=== PATIENT | female | born 1930 | race Caucasian/White ===

== ENCOUNTER 2017-06-09 16:55 | Inpatient (IN) | payer OTHER ==
[2017-06-09 17:26] VITALS: BMI 33.3
[2017-06-09 18:10] LABS: BASOPHIL 0.2 % (0-2.0); EOSINOPHIL 0.8 % (0-4.5); MCH 34.1 pg (25.7-33.7); MCHC 33.8 g/dl (32.0-36.0); MEAN CELL VOLUME 100.7 fl (80-96); MEAN PLT VOLUME 9.4 fl (7.5-11.1); NEUTROPHILS 80.4 % (42.8-82.8); PLATELET COUNT 213 K/MM3 (134-434); RDW 13.5 % (11.6-15.6); WHITE BLOOD COUNT 9.7 K/mm3 (4.0-10.0)
[2017-06-09 18:11] LABS: URINE APPEARANCE SLCLOUDY; URINE BILIRUBIN NEGATIVE (NEGATIVE); URINE BLOOD 2+ (NEGATIVE); URINE COLOR AMBER; URINE GLUCOSE (UA) NEGATIVE (NEGATIVE); URINE KETONE TRACE (NEGATIVE); URINE LEUK ESTERASE NEGATIVE (NEGATIVE); URINE NITRITE NEGATIVE (NEGATIVE); URINE PROTEIN NEGATIVE (NEGATIVE); URINE UROBILINOGEN 4.0 E.U/dl mg/dL (0.2-1.0)
[2017-06-09 18:22] LABS: INR 0.96 (0.82-1.09); PROTHROMBIN TIME (PATIENT) 10.6 SEC (9.98-11.88)
[2017-06-09 18:33] LABS: ALBUMIN 3.8 g/dl (3.4-5.0); ANION GAP 6 (8-16); CALCIUM 9.2 mg/dL (8.5-10.1); CO2 24 mmol/L (21-32); CREATININE 1.6 mg/dL (0.55-1.02); GLUCOSE,RANDOM 146 mg/dL (74-106); SGOT/AST 14 U/L (15-37); SGPT/ALT 24 U/L (12-78)
[2017-06-09 18:37] LABS: ALK PHOS 92 U/L (45-117); BILIRUBIN,TOTAL 0.4 mg/dL (0.2-1.0); CPK 47 IU/L (26-192); TOT PROT 7.2 g/dl (6.4-8.2); TROPONIN I < 0.02 ng/ml (0.00-0.05)
--- NOTE | 2017-06-09 18:47 | PDOC ---
History of Present Illness - General History Source: Patient, EMS, Intermediate Records, Old Records Exam Limitations: Dementia - History of Present Illness Initial Comments: 06/09/17 18:49 The patient is an 87 year old female with past medical history of hypertension, CHF, vertigo and dementia who arrives via EMS from [facility] living where she was found to be hypotensive and diaphoretic. She complained about a headache, 10/10 in severity, dizziness as well as intense suprapubic pain. The patient is a poor historian due to her dementia and no further history can be provided. Allergies: N/A PCP: Claudette Franco <Nola Ziegler - Last Filed: 06/09/17 21:26> <Meli Kim - Last Filed: 06/09/17 22:00> - General Chief Complaint: Syncope/Near Syncope Stated Complaint: Altered Mental Status Time Seen by Provider: 06/09/17 17:21 Past History <Nola Ziegler - Last Filed: 06/09/17 21:26> - Past Medical History Anemia: Yes (B12) Dementia: Yes HTN: Yes Psychiatric Problems: Yes (depressive disorder) Other medical history: vertigo - Immunization History Immunization Up to Date: Yes - Psycho/Social/Smoking Cessation Hx Anxiety: No Suicidal Ideation: No Smoking History: Unknown if ever smoked Have you smoked in the past 12 months: No Number of Cigarettes Smoked Daily: 6 Information on smoking cessation initiated: No Hx Alcohol Use: No Drug/Substance Use Hx: No Substance Use Type: None <Meli Kim - Last Filed: 06/09/17 22:00> - Past Medical History Allergies/Adverse Reactions: Allergies Allergy/AdvReac Type Severity Reaction Status Date / Time No Known Allergies Allergy Verified 06/09/17 17:26 Home Medications: Ambulatory Orders Acetaminophen [Pain Reliever] 500 mg PO TID PRN 05/18/16 Cyanocobalamin [Vitamin B12 -] 1,000 mcg PO DAILY 05/18/16 Mirabegron [Myrbetriq] 50 mg PO DAILY 05/18/16 Oxybutynin Chloride [Oxybutynin Chloride ER] 10 mg PO DAILY 05/18/16 Aspirin [ASA -] 81 mg PO DAILY tab.chew 05/23/16 Losartan Potassium [Cozaar -] 100 mg PO DAILY tablet 05/23/16 Spironolactone [Aldactone -] 25 mg PO DAILY tablet 05/23/16 Ergocalciferol [Drisdol -] 50,000 unit PO Q7D@1000 06/09/17 Furosemide [Lasix -] 40 mg PO DAILY 06/09/17 Meloxicam 7.5 mg PO ASDIR 06/09/17 Sennosides [Senna] 2 tab PO DAILY 06/09/17 Review of Systems - Review of Systems Able to Perform ROS?: Yes Comments:: 06/09/17 18:50 CONSTITUTIONAL: Present: diaphoretic Absent: fever, chills HEENT: Absent: rhinorrhea, nasal congestion, throat pain, throat swelling, difficulty swallowing, mouth swelling, ear pain, eye pain, visual Changes CARDIOVASCULAR: Absent: chest pain, syncope, palpitations, irregular heart rate, lightheadedness , peripheral edema RESPIRATORY: Absent: cough, shortness of breath, dyspnea with exertion, orthopnea, wheezing, stridor, hemoptysis GASTROINTESTINAL: Present: suprapubic pain Absent: abdominal distension, nausea, vomiting, diarrhea, constipation, melena, hematochezia GENITOURINARY: Absent: dysuria, frequency, urgency, hesitancy, hematuria, flank pain, genital pain MUSCULOSKELETAL: Absent: myalgia, arthralgia, joint swelling SKIN: Absent: rash, itching, pallor HEMATOLOGIC/IMMUNOLOGIC: Absent: easy bleeding, easy bruising, lymphadenopathy, frequent infections ENDOCRINE: Absent: unexplained weight gain, unexplained weight loss, heat intolerance, cold intolerance NEUROLOGIC: Present: dizziness, headache Absent: focal weakness or paresthesias, unsteady gait, seizure, mental status changes, bladder or bowel incontinence PSYCHIATRIC: Absent: anxiety, depression, suicidal or homicidal ideation, hallucinations. All Other Systems: Reviewed and Negative <Nola Ziegler - Last Filed: 06/09/17 21:26> *Physical Exam - Vital Signs Last Vital Signs Temp Pulse Resp BP Pulse Ox 97.2 F L 58 L 13 138/71 95 06/09/17 17:45 06/09/17 18:00 06/09/17 18:00 06/09/17 18:00 06/09/17 18:00 - Physical Exam Comments: 06/09/17 19:08 GENERAL: Well developed, well nourished. Awake and alert. No acute distress. HEENT: Normocephalic, atraumatic. PERRLA, EOMI. No conjunctival pallor. Sclera are non- icteric. Moist mucous membranes. Oropharynx is clear. NECK: Supple. Full ROM. No JVD. Carotid pulses 2+ and symmetric, without bruits. No thyromegaly. No lymphadenopathy. CARDIOVASCULAR: Bradycardic, No murmurs, rubs, or gallops. Distal pulses are 2+ and symmetric. PULMONARY: No evidence of respiratory distress. Lungs clear to auscultation bilaterally. No wheezing, rales or rhonchi. ABDOMINAL: Protuberant belly, pain on palpation to suprapubic region. No rebound or guarding. No organomegaly. Normoactive bowel sounds. MUSCULOSKELETAL Normal range of motion at all joints. No bony deformities or tenderness. No CVA tenderness. EXTREMITIES: No cyanosis. No clubbing. No edema. No calf tenderness. SKIN: Warm and dry. Normal capillary refill. No rashes. No jaundice. NEUROLOGICAL: Alert, awake, appropriate. Cranial nerves 2-12 intact. No deficits to light touch and temperature in face, upper extremities and lower extremities. No motor deficits in the in face, upper extremities and lower extremities. Normoreflexic in the upper and lower extremities. Normal speech. Toes are down-going bilaterally. Gait is normal without ataxia. PSYCHIATRIC: Cooperative. Good eye contact. Appropriate mood and affect. <KarlieNola - Last Filed: 06/09/17 21:26> - Vital Signs Last Vital Signs Temp Pulse Resp BP Pulse Ox 97.2 F L 58 L 13 138/71 95 06/09/17 17:45 06/09/17 18:00 06/09/17 18:00 06/09/17 18:00 06/09/17 18:00 <Meli Kim - Last Filed: 06/09/17 22:00> ED Treatment Course - LABORATORY CBC & Chemistry Diagram: 06/09/17 17:25 06/09/17 17:25 - ADDITIONAL ORDERS Additional order review: Laboratory Results 06/09/17 06/09/17 17:25 17:25 INR 0.96 Urine Color Mary Kay Urine Appearance Slcloudy Urine pH 5.0 Urine Protein Negative Urine Glucose (UA) Negative Urine Ketones Trace H Urine Blood 2+ H Urine Nitrite Negative Urine Bilirubin Negative Urine Urobilinogen 4.0 e.u/dl H Ur Leukocyte Esterase Negative - RADIOLOGY Radiograph Interpretation: 06/09/17 20:02 Chest x-ray as reviewed by Dr. Garcia reports cardiomegaly and mild congestion Head Ct as reviewed by Dr. Garcia reports no acute intracranial pathology. <Nola Ziegler - Last Filed: 06/09/17 21:26> - LABORATORY CBC & Chemistry Diagram: 06/09/17 17:25 06/09/17 17:25 - ADDITIONAL ORDERS Additional order review: Laboratory Results 06/09/17 06/09/17 17:25 17:25 INR 0.96 Urine Color Mary Kay Urine Appearance Slcloudy Urine pH 5.0 Urine Protein Negative Urine Glucose (UA) Negative Urine Ketones Trace H Urine Blood 2+ H Urine Nitrite Negative Urine Bilirubin Negative Urine Urobilinogen 4.0 e.u/dl H Ur Leukocyte Esterase Negative - RADIOLOGY Radiology Studies Ordered: Category Date Time Status HEAD CT WITHOUT CONTRAST [CT] Stat CT Scan 06/09/17 17:47 Ordered CHEST X-RAY PORTABLE* [RAD] Stat Radiology 06/09/17 17:46 Completed <Meli Kim - Last Filed: 06/09/17 22:00> Medical Decision Making - Medical Decision Making 06/09/17 21:26 Microblog sent to [facility]. Awaiting call back. <Nola Ziegler - Last Filed: 06/09/17 21:26> *DC/Admit/Observation/Transfer - Attestations Scribe Attestion: 06/09/17 19:11 Documentation prepared by Nola Ziegler, acting as medical office technician for Meli Kim MD. <KarlieNola - Last Filed: 06/09/17 21:26> - Discharge Dispostion Admit: Yes <Meli Kim - Last Filed: 06/09/17 22:00> Diagnosis at time of Disposition: Sinus bradycardia, Hyperkalemia, Renal insufficiency, Hyperglycemia, Vertigo, Acute electrocardiogram changes Headache Qualifiers: Headache type: unspecified Headache chronicity pattern: unspecified pattern Intractability: not intractable Qualified Code(s): R51 - Headache - Referrals Referrals: Claudette Franco MD [Primary Care Provider] -
[2017-06-09] MEDS ORDERED: INSULIN REGULAR HUMAN 100 UNITS/ML *VIAL IVPUSH ONE (18:59)
[2017-06-09] MEDS ORDERED: DEXTROSE 50%-WATER - 25 GM/50 ML VIAL IVPUSH ONE (19:01)
[2017-06-09] MEDS ORDERED: DEXTROSE 50%-WATER 50 ML DISP.SYRIN ONE (19:08)
[2017-06-09] MEDS ORDERED: INSULIN (NOVOLOG) ASPART 100 UNITS/ML 10ML VIAL ONE (19:09)
[2017-06-09 19:33] LABS: GRANULAR CASTS 2 /lpf; URINE MUCUS RARE; URINE RBC 7 /hpf (0-3); URINE WBC <1 /hpf (3-5)
[2017-06-09] MEDS ORDERED: ACETAMINOPHEN 325 MG TABLET (FP) PO ONE (21:25)
[2017-06-09] MEDS ORDERED: MECLIZINE HCL 25 MG TABLET (FP) PO ONE (21:25)
[2017-06-09] MEDS ORDERED: SODIUM POLYSTYRENE SULFONATE 15 GM/60 ML BOTTLE PO ONE (21:38)
--- NOTE | 2017-06-09 21:40 | PN ---
Teaching Attending Note Name of Resident: Tatyana Guido ATTENDING PHYSICIAN STATEMENT I saw and evaluated the patient. I reviewed the resident's note and discussed the case with the resident. I agree with the resident's findings and plan as documented. SUBJECTIVE: 87 yo F with pmhx of HTN, CHF, Vertigo, and dementia who was BIBA from [facility], where she was found to be diaphoretic with CRUZ 10/10 , also hypotensive (not recorded). At bedside pt. is alert and able to open her eyes and follow some commands, but did have mild lethargy. Denies any chest pain , pressure, fevers, chills or shortness of breath. OBJECTIVE: Physical: VS: Vital Signs Period Temp Pulse Resp BP Sys/Savage Pulse Ox Last 24 Hr 97.2 F 58-68 13-19 90-138/55-71 95-100 GEN: NAD, AA0 1-2, resting in bed HEENT: NCAT, PERRL CARD: RRR S1, S2 II/ Systolic Ejection murmer RESP: Crackles bases bilateral ABD: BS X4, NTD to palpation EXT: Trace pitting edema, bilateral and equal CBCD WBC 9.7 K/mm3 (4.0-10.0) D 06/09/17 17:25 RBC 3.62 M/mm3 (3.60-5.2) 06/09/17 17:25 Hgb 12.3 GM/dL (10.7-15.3) 06/09/17 17:25 Hct 36.4 % (32.4-45.2) 06/09/17 17:25 MCV 100.7 fl (80-96) H 06/09/17 17:25 MCHC 33.8 g/dl (32.0-36.0) 06/09/17 17:25 RDW 13.5 % (11.6-15.6) 06/09/17 17:25 Plt Count 213 K/MM3 (134-434) 06/09/17 17:25 MPV 9.4 fl (7.5-11.1) 06/09/17 17:25 CMP Sodium 137 mmol/L (136-145) 06/09/17 17:25 Potassium 6.2 mmol/L (3.5-5.1) H* D 06/09/17 17:25 Chloride 107 mmol/L (98-107) 06/09/17 17:25 Carbon Dioxide 24 mmol/L (21-32) D 06/09/17 17:25 Anion Gap 6 (8-16) L 06/09/17 17:25 BUN 33 mg/dL (7-18) H 06/09/17 17:25 Creatinine 1.6 mg/dL (0.55-1.02) H D 06/09/17 17:25 Creat Clearance w eGFR 30.63 (>60) 06/09/17 17:25 Random Glucose 146 mg/dL (74-106) H D 06/09/17 17:25 Calcium 9.2 mg/dL (8.5-10.1) 06/09/17 17:25 Total Bilirubin 0.4 mg/dL (0.2-1.0) 06/09/17 17:25 AST 14 U/L (15-37) L 06/09/17 17:25 ALT 24 U/L (12-78) D 06/09/17 17:25 Alkaline Phosphatase 92 U/L (45-117) 06/09/17 17:25 Total Protein 7.2 g/dl (6.4-8.2) 06/09/17 17:25 Albumin 3.8 g/dl (3.4-5.0) D 06/09/17 17:25 CARDIAC ENZYMES Creatine Kinase 47 IU/L (26-192) 06/09/17 17:25 Troponin I < 0.02 ng/ml (0.00-0.05) 06/09/17 17:25 EKG: S Get, no St-T changes CXR: Congestion bilateral, patchy Home Medications Medication Instructions Recorded Acetaminophen [Pain Reliever] 500 mg PO TID PRN 05/18/16 Cyanocobalamin [Vitamin B12 -] 1,000 mcg PO DAILY 05/18/16 Mirabegron [Myrbetriq] 50 mg PO DAILY 05/18/16 Oxybutynin Chloride [Oxybutynin 10 mg PO DAILY 05/18/16 Chloride ER] Aspirin [ASA -] 81 mg PO DAILY tab.chew 05/23/16 Losartan Potassium [Cozaar -] 100 mg PO DAILY tablet 05/23/16 Spironolactone [Aldactone -] 25 mg PO DAILY tablet 05/23/16 Ergocalciferol [Drisdol -] 50,000 unit PO Q7D@1000 06/09/17 Furosemide [Lasix -] 40 mg PO DAILY 06/09/17 Meloxicam 7.5 mg PO ASDIR 06/09/17 Sennosides [Senna] 2 tab PO DAILY 06/09/17 EHCO 05/17- Reduced EF 47% ASSESSMENT AND PLAN: 87 F with pmhx of HTN, CHF, Vertigo, and demenita who was BIBA for hypotension and diaphoresis, Found to have Acute Renal Failure and Hyperkalemia 1.) Acute Renal Failure - U lytes - Renal Us - Nephro Consult - Avoid Nephrotoxins - Hold Losartan/Aldactone - Decrease Mirabegron to 25mg q day, adjusted for clearance - ABG 2.) Hyperkalemia - Possibly medication induced - S/P Insulin/Dextrose/calscum and kayexlate/Alb neb - Repeat BMP - Cardiac Monitoring - Hold ARB 3.) Acute on Chronic Systolic Heart Failure - Lasic 40 IV X1 - Daily weights - NA/Fluid Restric - Strict I/O - Repeat Echo - Trend Troponins/Ekg 4.) Dvt Ppx - Heparin [address] in Med- Tele Rest as per resident note
[2017-06-09] MEDS ORDERED: CALCIUM GLUCONATE 10% - 1,000 MG/10 ML VIAL IVPB ONE (21:48)
[2017-06-09] MEDS ORDERED: PATIENT'S OWN MEDICATION (NON-FORMULARY) (Meloxicam [Meloxicam] 7.5 MG) PO SCH (22:15)
[2017-06-09] MEDS ORDERED: FUROSEMIDE 40 MG/4 ML INJECTABLE VIAL IVPUSH ONE (22:28)
--- NOTE | 2017-06-09 22:41 | HP ---
Admitting History and Physical - Primary Care Physician PCP: Danae Franco - Admission History of Present Illness: Pt is a 87 yo F arriving from [facility] with a history of dementia, CHF, diabetes, HTN, Hyperlipidemia who was seen in the ER for hyperkalemia of 6.3 and altered mental status. Pt is a poor historian and much information could not be attained from her. Per chart when pt was previously here May 2016 for PNA, mental baseline was alert and oriented x2 (not oriented to time). Currently pt reports being tired with b/l frontal headaches. She denies any chills, chest pain/discomfort, palpitations, abdominal pain. Pt was originally hypotensive in ER with a BP of 90/55, however responded with fluid resuscitation and has been stable at 138/71. ER Course notable for: 1) Head Ct - no acute intracranial pathology 2) CXR - Cardiomegaly with increased interstitial markings and opacities compared to previous; probable congestion per radiologist read 3) ECG - sinus bradycardia and from previous ECG change in T wave orientation in leads V1-V4 (now up-going) 4) 10 U insulin IVPush alongside D5 for potassium management PCP: Danae Franco History Source: Patient, Medical Record Limitations to Obtaining History: Dementia - Past Medical History NUTTER UP: Yes: Dementia - Smoking History Smoking history: Unknown if ever smoked Have you smoked in the past 12 months: No Aproximately how many cigarettes per day: 6 - Alcohol/Substance Use Hx Alcohol Use: No Home Medications - Allergies Allergies/Adverse Reactions: Allergies Allergy/AdvReac Type Severity Reaction Status Date / Time No Known Allergies Allergy Verified 06/09/17 17:26 - Home Medications Home Medications: Ambulatory Orders Acetaminophen [Pain Reliever] 500 mg PO TID PRN 05/18/16 Cyanocobalamin [Vitamin B12 -] 1,000 mcg PO DAILY 05/18/16 Mirabegron [Myrbetriq] 50 mg PO DAILY 05/18/16 Oxybutynin Chloride [Oxybutynin Chloride ER] 10 mg PO DAILY 05/18/16 Aspirin [ASA -] 81 mg PO DAILY tab.chew 05/23/16 Losartan Potassium [Cozaar -] 100 mg PO DAILY tablet 05/23/16 Spironolactone [Aldactone -] 25 mg PO DAILY tablet 05/23/16 Ergocalciferol [Drisdol -] 50,000 unit PO Q7D@1000 06/09/17 Furosemide [Lasix -] 40 mg PO DAILY 06/09/17 Meloxicam 7.5 mg PO ASDIR 06/09/17 Sennosides [Senna] 2 tab PO DAILY 06/09/17 Review of Systems Findings/Remarks: Same as HPI Physical Examination Vital Signs: Vital Signs Temperature 97.2 F L 06/09/17 17:45 Pulse Rate 68 06/09/17 19:27 Respiratory Rate 19 06/09/17 19:27 Blood Pressure 138/71 06/09/17 19:27 O2 Sat by Pulse Oximetry (%) 98 06/09/17 19:27 Constitutional: Yes: Other (Obese, Lethargic, but arousable to verbal stimulus) Eyes: Yes: Conjunctiva Clear, EOM Intact, PERRL HENT: Yes: Atraumatic, Normocephalic Neck: Yes: Supple, Trachea Midline Cardiovascular: Yes: Bradycardia, Murmur (Trace systolic ejection murmur), Other (Regular rhythm) Respiratory: Yes: Regular, Rales (Bibasilar rales noted.). No: Accessory Muscle Use Gastrointestinal: Yes: Normal Bowel Sounds, Soft, Abdomen, Obese. No: Tenderness Edema: No Peripheral Pulses WNL: Yes Neurological: Yes: Oriented (to name), Lethargy (had to arouse multiple times during examination; arousable to name and to tactile stimulation), Other (No focal deficits). No: Facial Droop Labs: CBC, BMP 06/09/17 17:25 06/09/17 17:25 Assessment/Plan 87yo Ugandan-speaking F from [facility] with h/o dementia, CHF , HTN, diabetes, vertigo admitted to [facility] inpatient for hyperkalemia with possible EKG changes and altered mentation with baseline unknown. Head CT neg for acute pathology; CXR moderate congestion; K 6.3 1) Hyperkalemia --EKG showed change in T wave orientation in V1-V4 leads from previous ECG done for PNA admission; unsure if T wave change from hyperkalemia this admission vs demand ischemia on previous admission. --Insulin 10 U with D5 given once in ED --Calcium gluconate IVPB will be given to pt in ED --Kayexalate given --Albuterol 0.083% neb QIDR ordered for hyperkalemia management --Propagator Laborer consulted --Aldactone and ARB HELD from home meds --Follow-up BMP 2) RAYO --Follow-up urine electrolytes --Stopped ARB and aldactone --Renally dosed Mirabegron down to 25mg --Renal US; f/u --Nephro consultation --Avoid nephrotoxins 3) Acute CHF exacerbation vs PNA --CXR in ER markedly worse when compared to previous XR on file --Most likely congestion: no leukocytosis, no fevers, no UTI present on UA --Lasix 40mg IVPush given --BNP ordered; slightly elevated at 554 --Follow-up CXR tomorrow morning --Echocardiogram ordered for tomorrow; will follow-up 3) Altered mental status --Pt's baseline per chart seems to be alert and orientedx2; however unknown if deterioration from possible dementia over past year --Head CT w/o contrast negative for acute pathology --Pt is currently lethargic, but arousable with unknown lung disease --ABG ordered; will follow-up with assisted living facility for baseline mental status FEN: Fluids: Fluid restriction currently Electrolytes: Hyperkalemia management as above Nutrition: NPO for now while lethargic and altered, but plan for diabetic diet later in hospital course PPX: DVT: Heparin 5000 SQ q8 GI: Not indicated at current time Dispo: Admit to tele inpatient Visit type - Emergency Visit Emergency Visit: Yes ED Registration Date: 06/09/17 Care time: The patient presented to the Emergency Department on the above date and was hospitalized for further evaluation of their emergent condition. - New Patient This patient is new to me today: Yes Date on this admission: 06/10/17 - Critical Care Critical Care patient: No
[2017-06-09] MEDS ORDERED: ACETAMINOPHEN 325 MG TABLET (FP) ONE (23:01)
[2017-06-09] MEDS ORDERED: SODIUM POLYSTYRENE SULFONATE 15 GM/60 ML BOTTLE ONE (23:02)
[2017-06-09] MEDS ORDERED: CALCIUM GLUCONATE 10% - 1,000 MG/10 ML VIAL ONE (23:02)
[2017-06-09] MEDS ORDERED: MECLIZINE HCL 25 MG TABLET (FP) ONE (23:02)
[2017-06-09] MEDS ORDERED: FUROSEMIDE 40 MG/4 ML INJECTABLE VIAL ONE (23:03)
[2017-06-09 23:38] LABS: ARTERIAL BLD GAS O2 SATURATION 97.3 % (90-98.9); ARTERIAL BLOOD GAS HCO3 20.6 meq/L (22-26); ARTERIAL BLOOD GAS PO2 85.3 mmHg (68-100)
[2017-06-09 23:39] LABS: ALLENS TEST POSITIVE; ART PUNCT SITE LEFT BRACHIAL; LPM/O2% ROOM AIR; METHEMOGLOBIN 0.8 % (0.4-1.5); PT. ON O2? NO
[2017-06-09] MEDS ORDERED: HEPARIN NA (PORCINE) 5,000 UNITS/ML 1ML VIAL ONE (23:40)
[2017-06-09 23:54] LABS: ANION GAP 10 (8-16); CALCIUM 8.5 mg/dL (8.5-10.1); CO2 23 mmol/L (21-32); CREATININE 1.3 mg/dL (0.55-1.02); GLUCOSE,RANDOM 85 mg/dL (74-106)
[2017-06-10] MEDS: HEPARIN NA (PORCINE) 5,000 UNITS/ML 1ML VIAL SQ SCH ×4 (00:22→21:10)
[2017-06-10] MEDS: ALBUTEROL SO4 0.083% IH SOL 2.5 MG/3 ML VIAL.NEB. NEB SCH ×4 (02:01→17:17)
[2017-06-10 07:37] LABS: MCH 33.5 pg (25.7-33.7); MCHC 33.5 g/dl (32.0-36.0); MEAN CELL VOLUME 100.1 fl (80-96); MEAN PLT VOLUME 9.3 fl (7.5-11.1); PLATELET COUNT 202 K/MM3 (134-434); RDW 13.3 % (11.6-15.6); WHITE BLOOD COUNT 7.3 K/mm3 (4.0-10.0)
[2017-06-10 08:04] LABS: ALBUMIN 3.3 g/dl (3.4-5.0); ANION GAP 7 (8-16); CALCIUM 8.8 mg/dL (8.5-10.1); CO2 26 mmol/L (21-32); CREATININE 1.4 mg/dL (0.55-1.02); GLUCOSE,RANDOM 93 mg/dL (74-106); SGPT/ALT 20 U/L (12-78)
[2017-06-10 08:05] LABS: ALK PHOS 76 U/L (45-117); BILIRUBIN,TOTAL 0.5 mg/dL (0.2-1.0); SGOT/AST 12 U/L (15-37); TOT PROT 6.4 g/dl (6.4-8.2)
[2017-06-10] MEDS ORDERED: FUROSEMIDE 40 MG TABLET (FP) PO SCH (10:00)
[2017-06-10] MEDS ORDERED: PATIENT'S OWN MEDICATION (NON-FORMULARY) (Mirabegron [Myrbetriq] 50 MG) PO SCH (10:00)
[2017-06-10] MEDS: CYANOCOBALAMIN 1,000 MCG TABLET (FP) PO SCH (10:06)
--- NOTE | 2017-06-10 13:47 | CONSULT ---
Consult Consult Specialty:: Nephrology Reason for Consultation:: hyperkalemia - History of Present Illness Chief Complaint: sent in for hypotension History of Present Illness: Pt is an 87 year old female with pmhx of htn, vertigo, dementia and CHF who was [place] in from [place] for hypot[place]. She does not know why she is in the hospital. She is drowsy but arousable. She denies shortness of breath. She denies dysuria or hematuria. Pt was found to be hyperkalemic and in acute renal failure. She was hypotensive and her blood pressure improved with fluids. History was taken from the chart. - History Source History Provided By: Medical Record Limitations to Obtaining History: Clinical Condition - Past Medical History COMMUNICATIONS INTERN: Yes: Dementia Cardio/Vascular: Yes: CHF, HTN, Hyperlipdemia ...: No - Alcohol/Substance Use Hx Alcohol Use: No - Smoking History Smoking history: Unknown if ever smoked Have you smoked in the past 12 months: No Aproximately how many cigarettes per day: 6 Home Medications - Allergies Allergies/Adverse Reactions: Allergies Allergy/AdvReac Type Severity Reaction Status Date / Time No Known Allergies Allergy Verified 06/09/17 17:26 - Home Medications Home Medications: Ambulatory Orders Acetaminophen [Pain Reliever] 500 mg PO TID PRN 05/18/16 Cyanocobalamin [Vitamin B12 -] 1,000 mcg PO DAILY 05/18/16 Mirabegron [Myrbetriq] 50 mg PO DAILY 05/18/16 Oxybutynin Chloride [Oxybutynin Chloride ER] 10 mg PO DAILY 05/18/16 Aspirin [ASA -] 81 mg PO DAILY tab.chew 05/23/16 Losartan Potassium [Cozaar -] 100 mg PO DAILY tablet 05/23/16 Spironolactone [Aldactone -] 25 mg PO DAILY tablet 05/23/16 Ergocalciferol [Drisdol -] 50,000 unit PO Q7D@1000 06/09/17 Furosemide [Lasix -] 20 mg PO DAILY 06/09/17 Meloxicam 7.5 mg PO ASDIR 06/09/17 Sennosides [Senna] 2 tab PO DAILY 06/09/17 Family Disease History - Family Disease History Family History: Unable to Obtain Review of Systems - Review of Systems Constitutional: reports: No Symptoms Eyes: reports: No Symptoms HENT: reports: No Symptoms Neck: reports: No Symptoms Cardiovascular: reports: No Symptoms Respiratory: reports: No Symptoms Gastrointestinal: reports: No Symptoms Genitourinary: reports: No Symptoms Musculoskeletal: reports: No Symptoms Integumentary: reports: No Symptoms Neurological: reports: No Symptoms Endocrine: reports: No Symptoms Physical Exam Vital Signs: Vital Signs Temperature 98.1 F 06/10/17 10:10 Pulse Rate 56 L 06/10/17 10:10 Respiratory Rate 18 06/10/17 10:10 Blood Pressure 130/60 06/10/17 10:10 O2 Sat by Pulse Oximetry (%) 98 06/10/17 09:00 Constitutional: Yes: Calm Eyes: Yes: Conjunctiva Clear HENT: Yes: Atraumatic Neck: Yes: Supple Cardiovascular: Yes: S1, S2 Respiratory: Yes: On Nasal O2 Gastrointestinal: Yes: Soft, Abdomen, Obese Renal/: Yes: Incontinence Musculoskeletal: Yes: Muscle Weakness Neurological: Yes: Confusion Labs: CBC, BMP 06/10/17 05:48 06/10/17 05:48 Laboratory Tests 05/19/16 05/20/16 05/23/16 05:35 07:00 05:40 WBC Hgb Sodium Potassium Chloride Carbon Dioxide Anion Gap BUN Creatinine 0.7 0.6 0.7 D Urine Color Urine Appearance Urine pH Ur Specific Dutton Urine Protein Urine Glucose (UA) Urine Ketones Urine Blood Urine Nitrite Urine Bilirubin 06/09/17 06/09/17 06/09/17 17:25 17:25 17:25 WBC 9.7 D Hgb Sodium Potassium 6.2 H* D Chloride Carbon Dioxide Anion Gap BUN Creatinine 1.6 H D Urine Color Mary Kay Urine Appearance Slcloudy Urine pH 5.0 Ur Specific Dutton 1.015 Urine Protein Negative Urine Glucose (UA) Negative Urine Ketones Trace H Urine Blood 2+ H Urine Nitrite Negative Urine Bilirubin Negative 06/09/17 06/10/17 06/10/17 23:10 05:48 05:48 WBC Hgb 11.0 D Sodium 142 Potassium 5.2 H 4.6 Chloride 109 H Carbon Dioxide 26 Anion Gap 7 L BUN 32 H 34 H Creatinine 1.3 H 1.4 H Urine Color Urine Appearance Urine pH Ur Specific Dutton Urine Protein Urine Glucose (UA) Urine Ketones Urine Blood Urine Nitrite Urine Bilirubin Imaging - Results Cat Scan: Report Reviewed Ultrasound: Report Reviewed Problem List - Problems (1) Hyperkalemia Code(s): E87.5 - HYPERKALEMIA (2) Renal insufficiency Code(s): N28.9 - DISORDER OF KIDNEY AND URETER, UNSPECIFIED (3) CHF exacerbation Code(s): I50.9 - HEART FAILURE, UNSPECIFIED Qualifiers: Congestive heart failure type: combined Qualified Code(s): I50.43 - Acute on chronic combined systolic (congestive) and diastolic (congestive) heart failure (4) Hypertension Code(s): I10 - ESSENTIAL (PRIMARY) HYPERTENSION Qualifiers: Hypertension type: essential hypertension Qualified Code(s): I10 - Essential (primary) hypertension Assessment/Plan Current Medications Generic Name Dose Route Start Last Admin Trade Name Freq PRN Reason Stop Dose Admin Acetaminophen 500 mg 06/09/17 22:14 Tylenol - PO TID PRN pain/fever Albuterol Sulfate 1 amp 06/10/17 00:00 06/10/17 17:17 Ventolin 0.083% Nebulizer Soln - NEB 1 amp QIDR JENNIFER Administration Cyanocobalamin 1,000 mcg 06/10/17 10:00 06/10/17 10:06 Vitamin B12 - PO 1,000 mcg DAILY JENNIFER Administration Ergocalciferol 50,000 unit 06/14/17 10:00 Drisdol - PO Johnston@10 JENNIFER Heparin Sodium (Porcine) 5,000 unit 06/09/17 22:45 06/10/17 14:57 Heparin - SQ 5,000 unit TID JENNIFER Administration Non-Formulary Medication 25 mg 06/10/17 10:00 Mirabegron [Myrbetriq] PO DAILY JENNIFER Senna 2 tab 06/10/17 22:00 Senna - PO HS JENNIFER Solifenacin 5 mg 06/10/17 10:00 Vesicare - PO DAILY JENNIFER Impression 1. RAYO 2. hyperkalemia 3. CAD 4. HTN 5. CHF 6. dementia Plan - potassium is improving - hold spironolactone - stop mobic - renal ultrasound reviewed - repeat labs in am Dr Holly
--- NOTE | 2017-06-10 14:35 | PN ---
Teaching Attending Note Name of Resident: Jose Luis Bradshaw ATTENDING PHYSICIAN STATEMENT I saw and evaluated the patient. I reviewed the resident's note and discussed the case with the resident. I agree with the resident's findings and plan as documented. SUBJECTIVE: denies any SOB or cp , has no fever or chills. OBJECTIVE: NAD , awake knows , knows location , not where she lives HEENT: dry MM , no JVD CV: RRR, No JVD Lungs : CTAB Ext : carrie jing Abd :soft, NT, ND , NL BS EKG reviewed. ASSESSMENT AND PLAN: 87 y/o lady with h/o chronic systolic heart failure , DM , HTN, and dementia who presented with AMS , was found to have hyperkalemia and RAYO. 1- RAYO : likely pre-renal . volume status is difficult to assess. Patient clinically looks volume depleted with dry MM and Hypotensive at presentation along with elevated BUN /Cr she does not look in heart failure , despite congested Cxray ( no crackles, JVD , LE edema) She received IVF in ER, and then IV lasix last night . - hold LAsix - monitor renal function, and volume status in am - will decide on IVF vs gentle diuresis tomorrow - hold ARB - hold meloxicam - follow renal US 2- HYperkalemia : due to RAYO while on ARB and Aldactone -treated in ER. - hold ARB and aldactone for now -monitor renal function 3- h/o CHF : last echo 1 month ago with decreased EF. clinically , does not look in heart failure . - hold diuresis - no need for repeat Echo - montior I&O 4- HTN: hold AEB . MOnitor BP . Dispo : HLOC
--- NOTE | 2017-06-10 14:45 | EKG ---
Test Reason : Blood Pressure : / mmHG Vent. Rate : 053 BPM Atrial Rate : 053 BPM P-R Int : 144 ms QRS Dur : 098 ms QT Int : 470 ms P-R-T Axes : 018 015 076 degrees QTc Int : 441 ms SINUS BRADYCARDIA INCREASED R/S RATIO IN V1, CONSIDER EARLY TRANSITION OR POSTERIOR INFARCT ABNORMAL ECG WHEN COMPARED WITH ECG OF 19-MAY-2016 05:37, T WAVE INVERSION LESS EVIDENT IN ANTEROLATERAL LEADS Confirmed by ANNE NICHOLS MD ([id number]) on 06/10/2017 2:45:05 PM Referred By: Confirmed By:ANNE NICHOLS MD
--- NOTE | 2017-06-10 14:59 | PN ---
Progress Note (short form) - Note Progress Note: Chief Complaint: Events noted, notes reviewed. Evaluation of an abnormal EKG in a patient with known history of diastolic left ventricular dysfunction with congestive heart failure and hypertensive cardiovascular disease History of Present Illness: Seen and examined on telemetry. Full consult dictated - Current Medication List Current Medications Acetaminophen (Tylenol -) 500 mg PO TID PRN PRN Reason: pain/fever Albuterol Sulfate (Ventolin 0.083% Nebulizer Soln -) 1 amp NEB QIDR [facility] Last Admin: 06/10/17 12:15 Dose: 1 amp Cyanocobalamin (Vitamin B12 -) 1,000 mcg PO DAILY [facility] Last Admin: 06/10/17 10:06 Dose: 1,000 mcg Ergocalciferol (Drisdol -) 50,000 unit PO Johnston@10 [facility] Heparin Sodium (Porcine) (Heparin -) 5,000 unit SQ TID [facility] Last Admin: 06/10/17 06:12 Dose: 5,000 unit Non-Formulary Medication (Mirabegron [Myrbetriq]) 25 mg PO DAILY [facility] Senna (Senna -) 2 tab PO HS [facility] Solifenacin (Vesicare -) 5 mg PO DAILY [facility] Review of systems: Cardiovascular: As outlined above Pulmonary: No Cough or Sputum Production Gastrointestinal: No Nausea, Vomiting, Diarrhea, Constipation or Abdominal Discomfort Musculoskeletal: No Symptoms reported - Objective Vital Signs: Last Vital Signs Temp Pulse Resp BP Pulse Ox 98.4 F 57 L 18 131/66 98 06/10/17 14:00 06/10/17 14:00 06/10/17 14:00 06/10/17 14:00 06/10/17 09:00 Intake & Output 06/07/17 06/08/17 06/09/17 06/10/17 23:59 23:59 23:59 23:59 Intake Total 520 Balance 520 Weight 200 lb 200 lb Neck: Supple Negative JVD no bruit appreciated Cardiovascular: S1 and S2 Regular Rate and Rhythm No murmurs clicks or gallops Respiratory: Diminished Breath Sounds at the Bases Bilaterally Gastrointestinal: Soft, benign Normal Bowel Sounds Ext: No Edema Labs: CBC, BMP 06/10/17 05:48 06/10/17 05:48 Troponin, BNP 06/09/17 06/09/17 06/09/17 17:25 23:10 23:10 Troponin I < 0.02 < 0.02 B-Natriuretic Peptide 554.72 H Hepatic Panel Total Bilirubin 0.5 mg/dL (0.2-1.0) D 06/10/17 05:48 AST 12 U/L (15-37) L 06/10/17 05:48 ALT 20 U/L (12-78) 06/10/17 05:48 Alkaline Phosphatase 76 U/L (45-117) 06/10/17 05:48 Albumin 3.3 g/dl (3.4-5.0) L 06/10/17 05:48 INR, PTT INR 0.96 (0.82-1.09) 06/09/17 17:25 Assessment/Plan ASSESSMENT: 1. Acute renal insufficiency with hyperkalemia etiology of which is to be determined, resolved hyperkalemia 2. Coronary artery disease angina pectoris, EKG changes pseudo-normalization of anterior T-wave abnormality unrelated to the above-noted hyperkalemia 3. Diastolic/Systolic left ventricular dysfunction with chronic class I [place] [employer] classification left ventricular failure, compensated euvolemic to hypovolemic 4. HTN 5. Organic brain syndrome/dementia PLAN: 1. Recommend resumption of beta olivier therapy Coreg, hemodynamics permitting 2. Agree with withholding Losartan therapy and to resume once hemodynamic stability is achieved and renal insufficiency resolved 3. Agree with withholding Diuretic therapy including Lasix and Aldactone 4. Initiate Ecotrin therapy unless it is absolutely contraindicated Kristina Burrell M.D.
--- NOTE | 2017-06-10 18:21 | PN ---
Physical Exam: SUBJECTIVE: Patient seen and examined at bedside. No complaints. Pt feels well. Denies fever, chills, nausea, vomiting. OBJECTIVE: Vital Signs Period Temp Pulse Resp BP Sys/Savage Pulse Ox Last 24 Hr 98.1 F-99.1 F 49-102 17-18 107-133/50-77 98-99 GENERAL: The patient is awake, AAOx2, in no acute distress. HEAD: Normal with no signs of trauma. EYES: PERRL, extraocular movements intact, sclera anicteric, conjunctiva clear. No ptosis. ENT: Ears normal, nares patent, oropharynx clear without exudates, moist mucous membranes. NECK: Trachea midline, full range of motion, supple. LUNGS: Breath sounds equal, clear to auscultation bilaterally, no wheezes, no crackles, no accessory muscle use. HEART: Regular rate and rhythm, normal S1, S2 without murmur, rub or gallop. ABDOMEN: Soft,mildly tender, nondistended, normoactive bowel sounds, no guarding , no rebound, no hepatosplenomegaly, no masses. EXTREMITIES: 2+ pulses, warm, well-perfused, no edema. NEUROLOGICAL: Cranial nerves II through XII grossly intact. Normal speech, gait not observed. PSYCH: Normal mood, normal affect. SKIN: Warm, dry, normal turgor, no rashes or lesions noted Laboratory Results - last 24 hr 06/09/17 06/09/17 06/09/17 23:10 23:10 23:10 WBC RBC Hgb Hct MCV MCH MCHC RDW Plt Count MPV Sodium 141 Potassium 5.2 H Chloride 108 H Carbon Dioxide 23 Anion Gap 10 BUN 32 H Creatinine 1.3 H Creat Clearance w eGFR POC Glucometer Random Glucose 85 D Hemoglobin A1c % Calcium 8.5 Total Bilirubin AST ALT Alkaline Phosphatase Troponin I < 0.02 B-Natriuretic Peptide 554.72 H Total Protein Albumin 06/10/17 06/10/17 06/10/17 05:48 05:48 05:48 WBC 7.3 RBC 3.29 L Hgb 11.0 D Hct 32.9 MCV 100.1 H MCH 33.5 MCHC 33.5 RDW 13.3 Plt Count 202 MPV 9.3 Sodium 142 Potassium 4.6 Chloride 109 H Carbon Dioxide 26 Anion Gap 7 L BUN 34 H Creatinine 1.4 H Creat Clearance w eGFR 35.74 POC Glucometer Random Glucose 93 Hemoglobin A1c % 6.3 H Calcium 8.8 Total Bilirubin 0.5 D AST 12 L ALT 20 Alkaline Phosphatase 76 Troponin I B-Natriuretic Peptide Total Protein 6.4 Albumin 3.3 L 06/10/17 06/10/17 06/10/17 06:41 12:09 15:43 WBC RBC Hgb Hct MCV MCH MCHC RDW Plt Count MPV Sodium Potassium Chloride Carbon Dioxide Anion Gap BUN Creatinine Creat Clearance w eGFR POC Glucometer 101 107 195 Random Glucose Hemoglobin A1c % Calcium Total Bilirubin AST ALT Alkaline Phosphatase Troponin I B-Natriuretic Peptide Total Protein Albumin Active Medications Generic Name Dose Route Start Last Admin Trade Name Freq PRN Reason Stop Dose Admin Acetaminophen 500 mg 06/09/17 22:14 Tylenol - PO TID PRN pain/fever Albuterol Sulfate 1 amp 06/10/17 00:00 06/10/17 17:17 Ventolin 0.083% Nebulizer Soln - NEB 1 amp QIDR [facility] Administration Cyanocobalamin 1,000 mcg 06/10/17 10:00 06/10/17 10:06 Vitamin B12 - PO 1,000 mcg DAILY [facility] Administration Ergocalciferol 50,000 unit 06/14/17 10:00 Drisdol - PO Johnston@10 [facility] Heparin Sodium (Porcine) 5,000 unit 06/09/17 22:45 06/10/17 14:57 Heparin - SQ 5,000 unit TID [facility] Administration Non-Formulary Medication 25 mg 06/10/17 10:00 Mirabegron [Myrbetriq] PO DAILY [facility] Senna 2 tab 06/10/17 22:00 Senna - PO HS [facility] Solifenacin 5 mg 06/10/17 10:00 Vesicare - PO DAILY [facility] ASSESSMENT/PLAN: 87yo Romanian-speaking F from [facility] with h/o dementia, CHF , HTN, diabetes, vertigo admitted to tele inpatient for hyperkalemia with possible EKG changes and altered mentation with baseline unknown. Head CT neg for acute pathology; CXR moderate congestion; K 6.3 # Hyperkalemia: resolved - after discussion with cardio, EKG established be a RETURN TO BASELINE -treated with nebs, kayexelate -Aldactone and ARB HELD from home meds -Follow-up BMP # RAYO -Follow-up urine electrolytes -Stopped ARB and aldactone -Renally dosed Mirabegron down to 25mg -Renal US: benign -Nephro consultation -Avoid nephrotoxins # Acute CHF exacerbation vs PNA -CXR in ER markedly worse when compared to previous XR on file -Most likely congestion: no leukocytosis, no fevers, no UTI present on UA -Lasix 40mg IVPush given -BNP slightly elevated at 554 -Follow-up CXR tomorrow morning # Altered mental status: RESOLVED -Pt's baseline per chart seems to be alert and orientedx2; however unknown if deterioration from possible dementia over past year -Head CT w/o contrast negative for acute pathology #FEN - not on fluids - Hyperkalemia management as above - diabetic diet PPX: DVT: Heparin 5000 SQ q8 GI: Not indicated at current time Dispo: Admit to tele inpatient Jose Luis Bradshaw MD PGY-1 Visit type - Emergency Visit Emergency Visit: Yes ED Registration Date: 06/09/17 Care time: The patient presented to the Emergency Department on the above date and was hospitalized for further evaluation of their emergent condition. - New Patient This patient is new to me today: No - Critical Care Critical Care patient: No - Discharge Referral Referred to [facility] Med P.C.: No
--- NOTE | 2017-06-10 20:32 | CONS ---
DATE OF CONSULTATION: 06/10/2017 REQUESTING PHYSICIAN: Hospitalist CHIEF COMPLAINT: Altered mental status, hyperkalemia, cardiovascular evaluation. HISTORY OF PRESENT ILLNESS: History was predominantly obtained from the chart. Patient has known history of organic brain syndrome. An 87-year-old female who resides at an assisted living facility with known history of coronary artery disease, angina pectoris, diastolic/systolic left ventricular dysfunction, with congestive heart failure, hypertensive cardiovascular disease, organic brain syndrome, dementia, presented to [facility] from the above noted assisted living facility with vague suprapubic discomfort, and patient was noted to be hypotensive. Upon evaluation in the emergency room, patient was noted to have evidence of acute renal insufficiency with hyperkalemia. Patient in addition was noted to have an abnormal electrocardiogram in view of which was admitted for further monitoring. The above noted hyperkalemia was managed and treated successfully in the emergency room. Patient currently is resting comfortably in bed, awake, alert, disoriented to time and place, in no acute distress. Upon questioning the patient, she denied any chest discomfort. Patient denies any dyspnea. Patient denies any palpitations or dizziness. PAST MEDICAL HISTORY: Coronary artery disease, angina pectoris, diastolic/systolic left ventricular dysfunction, with chronic class I [place] Heart [employer] classification left ventricular failure, hypertensive cardiovascular disease, organic brain syndrome, dementia. SOCIAL HISTORY: Resides in an assisted care facility. No other reported history of tobacco abuse. FAMILY HISTORY: No history of coronary artery disease. ALLERGIES: None noted. MEDICAL THERAPY: At the assisted care living included vitamin D 50,000 international units once a week, Lasix 40 mg once a day, meloxicam 7.5 mg once a day, Myrbetriq 50 mg once a day, oxybutynin 10 mg once a day, acetaminophen 500 mg 3 times a day as needed, senna 2 tablets once a day, vitamin B12 1000 mcg a day, Ecotrin 81 mg a day, Bactrim 25 mg once a day, Cozaar 100 mg once a day. REVIEW OF SYSTEMS: Head and neck: Denies headache, photophobia, blurring of vision. Respiratory: No cough, sputum production. Cardiovascular: As noted above. Gastrointestinal: Vague suprapubic discomfort. No nausea or vomiting. Genitourinary: Suprapubic discomfort. Musculoskeletal: History of degenerative joint disease. PHYSICAL EXAMINATION: Vital signs: Blood pressure is 131/66 mmHg, pulse rate 57 beats per minute. Head/Neck: Pupils equal, reactive to light and accommodation. Extraocular muscles intact. Anicteric sclerae. Negative JVD. No bruit appreciated. Chest: Diminished breath sounds at the bases bilaterally. Cardiovascular: S1, S2. Regular. No murmurs, clicks or gallops. Abdomen: Soft, benign. Normoactive bowel sounds. Extremity: Negative edema. 1+ distal pulses. No calf tenderness. Electrocardiogram reveals sinus rhythm with early transition and nonspecific ST segment abnormality with upright T waves in comparison to the prior EKG performed May 19, 2016. T wave inversion is less evident. Chest x-ray report was noted. CBC revealed white cell count 7.6, hemoglobin 11.0, platelet count 202. INR 0.96. ABGs revealed pH of 7.40, pCO2 of 33.7, pO2 of 85.3. Basic metabolic profile revealed sodium 142, potassium 4.6, BUN 34, creatinine 1.4, glucose 93, hemoglobin A1c 6.3 with normal liver profile. ASSESSMENT: 1. Acute renal insufficiency with hyperkalemia, etiology of which is to be determined. 2. Coronary artery disease, angina pectoris, electrocardiogram changes, pseudonormalization of anterior T wave abnormality unrelated to the above noted hyperkalemia. 3. Diastolic/systolic left ventricular dysfunction with chronic class I [place] Heart [employer] classification left ventricular failure, compensated, euvolemic to hypovolemic. 4. Hypertensive cardiovascular disease. 5. Organic brain syndrome/dementia. PLAN: 1. Recommend resumption of beta olivier therapy, Coreg, hemodynamics permitting. 2. Agree with withholding Cozaar therapy and to resume once hemodynamic stability is achieved and renal insufficiency resolved. 3. Agree with withholding diuretic therapy including Lasix and Aldactone. 4. Initiate Ecotrin therapy unless it is absolutely contraindicated. Thank you for kind referral. MICHELLE MACEDO M.D. [id number]
[2017-06-10] MEDS: SENNOSIDES 8.6MG TABLET (FP) PO SCH (21:10)
[2017-06-10 23:02] LABS: URINE CREATININE 148.6 mg/dL (20-320)
[2017-06-11] MEDS: ALBUTEROL SO4 0.083% IH SOL 2.5 MG/3 ML VIAL.NEB. NEB SCH ×5 (00:04→23:34)
[2017-06-11] MEDS: HEPARIN NA (PORCINE) 5,000 UNITS/ML 1ML VIAL SQ SCH ×3 (06:16→21:46)
[2017-06-11 08:02] LABS: BASOPHIL 0.5 % (0-2.0); EOSINOPHIL 1.6 % (0-4.5); MCH 34.3 pg (25.7-33.7); MCHC 34.2 g/dl (32.0-36.0); MEAN CELL VOLUME 100.1 fl (80-96); MEAN PLT VOLUME 9.5 fl (7.5-11.1); NEUTROPHILS 61.8 % (42.8-82.8); PLATELET COUNT 180 K/MM3 (134-434); RDW 13.7 % (11.6-15.6); WHITE BLOOD COUNT 6.7 K/mm3 (4.0-10.0)
[2017-06-11] MEDS ORDERED: ONDANSETRON 4 MG/2 ML VIAL IVPB ONE (08:15)
--- NOTE | 2017-06-11 08:16 | PN ---
Progress Note, Physician Chief Complaint: Complains if shoulder pain, otherwise not in major distress History of Present Illness: Patient was seen and examined. Awake and alert. Chart was reviewed Denies chest pain, SOB or palpitations - Current Medication List Current Medications: Active Medications Acetaminophen (Tylenol -) 500 mg PO TID PRN PRN Reason: pain/fever Albuterol Sulfate (Ventolin 0.083% Nebulizer Soln -) 1 amp NEB QIDR [facility] Last Admin: 06/11/17 06:25 Dose: 1 amp Cyanocobalamin (Vitamin B12 -) 1,000 mcg PO DAILY [facility] Last Admin: 06/10/17 10:06 Dose: 1,000 mcg Ergocalciferol (Drisdol -) 50,000 unit PO Johnston@10 [facility] Heparin Sodium (Porcine) (Heparin -) 5,000 unit SQ TID [facility] Last Admin: 06/11/17 06:16 Dose: 5,000 unit Non-Formulary Medication (Mirabegron [Myrbetriq]) 25 mg PO DAILY [facility] Ondansetron HCl (Zofran Injection) 4 mg IVPB ONCE ONE Stop: 06/11/17 07:59 Senna (Senna -) 2 tab PO HS [facility] Last Admin: 06/10/17 21:10 Dose: 2 tab Solifenacin (Vesicare -) 5 mg PO DAILY [facility] - Objective Vital Signs: Vital Signs Temperature 98.2 F 06/11/17 08:00 Pulse Rate 48 L 06/11/17 08:00 Respiratory Rate 20 06/11/17 08:00 Blood Pressure 130/63 06/11/17 08:00 O2 Sat by Pulse Oximetry (%) 97 06/10/17 21:00 Neck: Yes: Supple Cardiovascular: Yes: Regular Rate and Rhythm, S1, S2 Respiratory: Yes: Diminished Gastrointestinal: Yes: Normal Bowel Sounds, Soft. No: Tenderness Edema: No Additional Findings/Remarks: Review of systems: Cardiovascular: Denies chest pain, SOB, palpitation Pulmonary: Denies Cough or Sputum Production Gastrointestinal: Denies Nausea, Vomiting, Diarrhea, Constipation or Abdominal Discomfort Musculoskeletal: No Symptoms reported Labs: CBC, BMP 06/11/17 06:05 INR, PTT INR 0.96 (0.82-1.09) 06/09/17 17:25 Problem List - Problems (1) Acute electrocardiogram changes Code(s): R94.31 - ABNORMAL ELECTROCARDIOGRAM [ECG] [EKG] (2) Hyperkalemia Code(s): E87.5 - HYPERKALEMIA (3) Renal insufficiency Code(s): N28.9 - DISORDER OF KIDNEY AND URETER, UNSPECIFIED (4) Sinus bradycardia Code(s): R00.1 - BRADYCARDIA, UNSPECIFIED (5) Hypertension Code(s): I10 - ESSENTIAL (PRIMARY) HYPERTENSION Qualifiers: Hypertension type: essential hypertension Qualified Code(s): I10 - Essential (primary) hypertension Assessment/Plan 1. Acute renal insufficiency with hyperkalemia etiology of which is to be determined - resolved hyperkalemia 2. Coronary artery disease angina pectoris, EKG changes pseudo-normalization of anterior T-wave abnormality unrelated to the above-noted hyperkalemia 3. Diastolic/Systolic left ventricular dysfunction with chronic class I [place] Heart [employer] classification left ventricular failure 4. HTN 5. Organic brain syndrome/dementia PLAN: 1. Currnently not started on Carvedilol as she remains bradycardic, but will consider when HR stabilizes 2. Restart Losartan therapy once hemodynamic stability is achieved and renal insufficiency resolved 3. Diuretic therapy including Lasix and Aldactone currently held 4. Initiate Ecotrin therapy unless it is absolutely contraindicated Further plans are to follow Alfredo Griffin MD
[2017-06-11] MEDS: ACETAMINOPHEN 500 MG TABLET (FP) PO PRN ×2 (08:38→13:00)
[2017-06-11] MEDS ORDERED: SODIUM CHLORIDE 1,000 ML IV SCH (09:45)
[2017-06-11 09:53] LABS: ALBUMIN 3.1 g/dl (3.4-5.0); ALK PHOS 79 U/L (45-117); ANION GAP 7 (8-16); BILIRUBIN,TOTAL 0.4 mg/dL (0.2-1.0); CO2 25 mmol/L (21-32); CREATININE 1.1 mg/dL (0.55-1.02); SGOT/AST 11 U/L (15-37); SGPT/ALT 18 U/L (12-78); TOT PROT 6.3 g/dl (6.4-8.2)
[2017-06-11 09:58] LABS: CALCIUM 8.6 mg/dL (8.5-10.1); GLUCOSE,RANDOM 93 mg/dL (74-106)
[2017-06-11] MEDS ORDERED: FUROSEMIDE 40 MG TABLET (FP) PO SCH (10:00)
[2017-06-11] MEDS ORDERED: FUROSEMIDE 40 MG/4 ML INJECTABLE VIAL IVPUSH SCH (10:00)
--- NOTE | 2017-06-11 12:28 | PN ---
Teaching Attending Note Name of Resident: Jose Luis Bradshaw ATTENDING PHYSICIAN STATEMENT I saw and evaluated the patient. I reviewed the resident's note and discussed the case with the resident. I agree with the resident's findings and plan as documented. SUBJECTIVE: no fever or chills , nausea and vomiting in am and at time of evaluation . has RUQ abd pain. OBJECTIVE: NAD , awake and cooperative HEENT: dry MM , no JVD CV: RRR, No JVD Lungs : CTAB Ext : no edema Abd :soft, TTP in RUQ , with POsitive Roa's sign . liver is not percussed or palpated EKG reviewed. ASSESSMENT AND PLAN: 87 y/o lady with h/o chronic systolic heart failure , DM , HTN, and dementia who presented with AMS , was found to have hyperkalemia and RAYO. 1- RAYO : Prerenal in etiology , as pt appear to be volume depleted Cr has improved. renal US with no signs of obstruction - cont to hold her lasix and aldactone - start very gentle hydration due to N/V to avoid further worsening - off NSAIDs 2- N/V : She has RUQ abd pain and tenderness and Positive Roa's sign. Need to R/o Acute cholecystitis - keep NPO - Get US of RUQ - NPO for now - if US is positive, will start Abx and get Surgery consult 3- HYperkalemia : due to RAYO while on ARB and Aldactone Resolved - cont to monitor 3- H/o CHF : last echo 1 month ago with decreased EF. clinically , does not look in heart failure . - cont to hold diuresis - no need for repeat Echo - montior I&O . weight is reported incorrectly - resume ASA - shobha on tele , sinus shobha 35-60 . avoid BB . perform EKG if shobha again 4- HTN: cont to hold ARB . MOnitor BP . Dispo : HLOC Will update family
[2017-06-11] MEDS: SOLIFENACIN SUCCINATE 5 MG TAB (FP) PO SCH (12:48)
[2017-06-11] MEDS: ASPIRIN COATED 81 MG TABLET.EC PO SCH (12:48)
[2017-06-11] MEDS: CYANOCOBALAMIN 1,000 MCG TABLET (FP) PO SCH (12:49)
[2017-06-11] MEDS: CEFTRIAXONE 50 ML IVPB SCH (12:55)
--- NOTE | 2017-06-11 15:37 | PN ---
Progress Note, Physician History of Present Illness: Pt seen and examined at bedside. She is currently getting a HIDA scan. She is more interactive than she was yesterday. She says she is thirsty. - Current Medication List Current Medications: Active Medications Acetaminophen (Tylenol -) 500 mg PO TID PRN PRN Reason: pain/fever Last Admin: 06/11/17 13:00 Dose: 500 mg Albuterol Sulfate (Ventolin 0.083% Nebulizer Soln -) 1 amp NEB QIDR [facility] Last Admin: 06/11/17 12:56 Dose: 1 amp Aspirin (Ecotrin -) 81 mg PO DAILY [facility] Last Admin: 06/11/17 12:48 Dose: Not Given Cyanocobalamin (Vitamin B12 -) 1,000 mcg PO DAILY [facility] Last Admin: 06/11/17 12:49 Dose: Not Given Ergocalciferol (Drisdol -) 50,000 unit PO Johnston@10 JENN[facility] Heparin Sodium (Porcine) (Heparin -) 5,000 unit SQ TID [facility] Last Admin: 06/11/17 06:16 Dose: 5,000 unit Sodium Chloride (Normal Saline -) 1,000 mls @ 50 mls/hr IV ASDIR [facility] Stop: 06/12/17 09:36 Last Admin: 06/11/17 10:25 Dose: 50 mls/hr Ceftriaxone Sodium (Rocephin 1gm Ivpb (Pre-Docked)) 50 mls @ 100 mls/hr IVPB DAILY [facility] Last Admin: 06/11/17 12:55 Dose: 100 mls/hr Metronidazole (Flagyl 500mg Premixed Ivpb -) 100 mls @ 100 mls/hr IVPB Q8H-IV [facility] Non-Formulary Medication (Mirabegron [Myrbetriq]) 25 mg PO DAILY [facility] Senna (Senna -) 2 tab PO HS [facility] Last Admin: 06/10/17 21:10 Dose: 2 tab Solifenacin (Vesicare -) 5 mg PO DAILY [facility] Last Admin: 06/11/17 12:48 Dose: Not Given - Objective Vital Signs: Vital Signs Temperature 98.2 F 06/11/17 08:00 Pulse Rate 48 L 06/11/17 08:00 Respiratory Rate 20 06/11/17 08:00 Blood Pressure 130/63 06/11/17 08:00 O2 Sat by Pulse Oximetry (%) 96 06/11/17 09:00 Constitutional: Yes: Calm Eyes: Yes: WNL HENT: Yes: WNL Neck: Yes: WNL Cardiovascular: Yes: S1, S2 Respiratory: Yes: CTA Bilaterally Gastrointestinal: Yes: Soft, Abdomen, Obese Genitourinary: Yes: WNL Musculoskeletal: Yes: WNL Extremities: Yes: WNL Edema: No Psychiatric: Yes: Oriented Labs: CBC, BMP 06/11/17 06:05 06/11/17 06:05 INR, PTT INR 0.96 (0.82-1.09) 06/09/17 17:25 - ....Imaging Chest X-ray: Report Reviewed (cxr from this am shows improvemnt) Problem List - Problems (1) Hyperkalemia Code(s): E87.5 - HYPERKALEMIA (2) Renal insufficiency Code(s): N28.9 - DISORDER OF KIDNEY AND URETER, UNSPECIFIED (3) CHF exacerbation Code(s): I50.9 - HEART FAILURE, UNSPECIFIED Qualifiers: Qualified Code(s): I50.43 - Acute on chronic combined systolic ( congestive) and diastolic (congestive) heart failure (4) Hypertension Code(s): I10 - ESSENTIAL (PRIMARY) HYPERTENSION Qualifiers: Qualified Code(s): I10 - Essential (primary) hypertension Assessment/Plan Current Medications Generic Name Dose Route Start Last Admin Trade Name Freq PRN Reason Stop Dose Admin Acetaminophen 500 mg 06/09/17 22:14 06/11/17 13:00 Tylenol - PO 500 mg TID PRN Administration pain/fever Albuterol Sulfate 1 amp 06/10/17 00:00 06/11/17 12:56 Ventolin 0.083% Nebulizer Soln - NEB 1 amp QIDR [facility]ER Administration Aspirin 81 mg 06/11/17 10:00 06/11/17 12:48 Ecotrin - PO Not Given DAILY [facility] Cyanocobalamin 1,000 mcg 06/10/17 10:00 06/11/17 12:49 Vitamin B12 - PO Not Given DAILY [facility] Ergocalciferol 50,000 unit 06/14/17 10:00 Drisdol - PO Johnston@10 JENN[facility]ER Heparin Sodium (Porcine) 5,000 unit 06/09/17 22:45 06/11/17 06:16 Heparin - SQ 5,000 unit TID [facility]ENN[facility] Administration Sodium Chloride 1,000 mls @ 50 mls/hr 06/11/17 09:45 06/11/17 10:25 Normal Saline - IV 06/12/17 09:36 50 mls/hr ASDIR [facility]ENN[facility]ER Administration Ceftriaxone Sodium 50 mls @ 100 mls/hr 06/11/17 12:45 06/11/17 12:55 Rocephin 1gm Ivpb (Pre-Docked) IVPB 100 mls/hr DAILY [facility] Administration Metronidazole 100 mls @ 100 mls/hr 06/11/17 12:45 Flagyl 500mg Premixed Ivpb - IVPB Q8H-IV [facility] Non-Formulary Medication 25 mg 06/10/17 10:00 Mirabegron [Myrbetriq] PO DAILY [facility] Senna 2 tab 06/10/17 22:00 06/10/17 21:10 Senna - PO 2 tab HS [facility] Administration Solifenacin 5 mg 06/10/17 10:00 06/11/17 12:48 Vesicare - PO Not Given DAILY [facility] Laboratory Tests 06/11/17 06:05 Potassium 3.9 Creatinine 1.1 H D Impression 1. RAYO 2. hyperkalemia 3. CAD 4. HTN 5. CHF 6. dementia Plan - renal function is improving - cxr is improving - change fluids from ns to 1/2 ns - follow up hida scan - hold spironolactone - stop mobic - repeat labs in am Dr Holly
[2017-06-11] MEDS ORDERED: DEXTROSE 5%-0.45% SALINE 1,000 ML IV SCH (15:45)
--- NOTE | 2017-06-11 15:48 | PN ---
Physical Exam: SUBJECTIVE: Patient seen and examined at bedside. Pt had episode of vomiting and abdominal pain today. Abdominal US was ordered and showed CBD dilation of 9.5mm. HIDA scan was ordered. OBJECTIVE: Vital Signs Period Temp Pulse Resp BP Sys/Savage Pulse Ox Last 24 Hr 97.2 F-98.4 F 48-71 18-20 109-130/45-68 96-97 GENERAL: The patient is awake, AAOx2, in no acute distress. HEAD: Normal with no signs of trauma. EYES: sclera anicteric, conjunctiva clear. No ptosis. ENT: oropharynx clear without exudates, moist mucous membranes. NECK: Trachea midline, full range of motion, supple. LUNGS: Breath sounds equal, clear to auscultation bilaterally, no wheezes, no crackles, no accessory muscle use. HEART: Regular rate and rhythm, normal S1, S2 with 3/6 systolic murmur heard mid left sternal border,no rub or gallop. ABDOMEN: Soft,mildly tender, nondistended, normoactive bowel sounds, no guarding , no rebound, no hepatosplenomegaly, no masses. EXTREMITIES: 2+ pulses, warm, well-perfused, no edema. NEUROLOGICAL: Cranial nerves II through XII grossly intact. Normal speech, gait not observed. PSYCH: Normal mood, normal affect. SKIN: Warm, dry, normal turgor, no rashes or lesions noted Laboratory Results - last 24 hr 06/10/17 06/10/17 06/10/17 15:43 21:00 22:06 WBC RBC Hgb Hct MCV MCH MCHC RDW Plt Count MPV Neutrophils % Lymphocytes % Monocytes % Eosinophils % Basophils % Sodium Potassium Chloride Carbon Dioxide Anion Gap BUN Creatinine Creat Clearance w eGFR POC Glucometer 195 167 Random Glucose Calcium Total Bilirubin AST ALT Alkaline Phosphatase Total Protein Albumin Lipase Urine Creatinine 148.6 06/11/17 06/11/17 06/11/17 06:05 06:05 06:05 WBC 6.7 RBC 3.13 L Hgb 10.7 Hct 31.4 L MCV 100.1 H MCH 34.3 H MCHC 34.2 RDW 13.7 Plt Count 180 MPV 9.5 Neutrophils % 61.8 D Lymphocytes % 28.3 D Monocytes % 7.8 Eosinophils % 1.6 D Basophils % 0.5 Sodium 144 Potassium 3.9 Chloride 112 H Carbon Dioxide 25 Anion Gap 7 L BUN 34 H Creatinine 1.1 H D Creat Clearance w eGFR 47.21 POC Glucometer Random Glucose 93 Calcium 8.6 Total Bilirubin 0.4 AST 11 L ALT 18 Alkaline Phosphatase 79 Total Protein 6.3 L Albumin 3.1 L Lipase 130 Cancelled Urine Creatinine 06/11/17 06/11/17 06:14 12:25 WBC RBC Hgb Hct MCV MCH MCHC RDW Plt Count MPV Neutrophils % Lymphocytes % Monocytes % Eosinophils % Basophils % Sodium Potassium Chloride Carbon Dioxide Anion Gap BUN Creatinine Creat Clearance w eGFR POC Glucometer 103 171 Random Glucose Calcium Total Bilirubin AST ALT Alkaline Phosphatase Total Protein Albumin Lipase Urine Creatinine Active Medications Generic Name Dose Route Start Last Admin Trade Name Freq PRN Reason Stop Dose Admin Acetaminophen 500 mg 06/09/17 22:14 06/11/17 13:00 Tylenol - PO 500 mg TID PRN Administration pain/fever Albuterol Sulfate 1 amp 06/10/17 00:00 06/11/17 12:56 Ventolin 0.083% Nebulizer Soln - NEB 1 amp QIDR [facility] Administration Aspirin 81 mg 06/11/17 10:00 06/11/17 12:48 Ecotrin - PO Not Given DAILY [facility] Cyanocobalamin 1,000 mcg 06/10/17 10:00 06/11/17 12:49 Vitamin B12 - PO Not Given DAILY [facility] Ergocalciferol 50,000 unit 06/14/17 10:00 Drisdol - PO Johnston@10 JENN[facility]ER Heparin Sodium (Porcine) 5,000 unit 06/09/17 22:45 06/11/17 06:16 Heparin - SQ 5,000 unit TID [facility] Administration Sodium Chloride 1,000 mls @ 50 mls/hr 06/11/17 09:45 06/11/17 10:25 Normal Saline - IV 06/12/17 09:36 50 mls/hr ASDIR [facility] Administration Ceftriaxone Sodium 50 mls @ 100 mls/hr 06/11/17 12:45 06/11/17 12:55 Rocephin 1gm Ivpb (Pre-Docked) IVPB 100 mls/hr DAILY [facility] Administration Metronidazole 100 mls @ 100 mls/hr 06/11/17 12:45 Flagyl 500mg Premixed Ivpb - IVPB Q8H-IV [facility] Non-Formulary Medication 25 mg 06/10/17 10:00 Mirabegron [Myrbetriq] PO DAILY [facility] Senna 2 tab 06/10/17 22:00 06/10/17 21:10 Senna - PO 2 tab HS [facility] Administration Solifenacin 5 mg 06/10/17 10:00 06/11/17 12:48 Vesicare - PO Not Given DAILY [facility] ASSESSMENT/PLAN: 87yo Sudanese-speaking F from [facility] with h/o dementia, CHF , HTN, diabetes, vertigo admitted to tele inpatient for hyperkalemia with possible EKG changes and altered mentation with baseline unknown. Head CT neg for acute pathology; CXR moderate congestion; K 6.3 #Choledocholithiasis -RUQ Abd pain with tenderness -Abd U/S shows CBD dilation -HIDA scan -MRCP to confirm Dx, possible ERCP to follow -pt made NPO -flagyl and ceftriaxone # Hyperkalemia: resolved - after discussion with cardio, EKG established be a RETURN TO BASELINE -treated with nebs, kayexelate -Aldactone and ARB HELD from home meds -Follow-up BMP # RAYO -Stopped ARB and aldactone -Renally dosed Mirabegron down to 25mg -Nephro consultation -Avoid nephrotoxins #Fluid status -Pt not in CHF. No JVD, crackles, pedal edema -repeat CXR looks improved # Altered mental status: RESOLVED -Pt's baseline per chart seems to be alert and orientedx2; however unknown if deterioration from possible dementia over past year -Head CT w/o contrast negative for acute pathology #Cards consult -Ecotrin -resume Losartan once stable -consider carvedilol once stable #FEN - not on fluids - lytes wnl - diabetic diet PPX: DVT: Heparin 5000 SQ q8 GI: Not indicated at current time Dispo: Admit to tele inpatient Jose Luis Bradshaw MD PGY-1 Visit type - Emergency Visit Emergency Visit: No - New Patient This patient is new to me today: No - Critical Care Critical Care patient: No
[2017-06-11] MEDS: METRONIDAZOLE 500 MG PREMIXED 100 ML IVPB SCH ×2 (16:42→17:45)
[2017-06-11] MEDS: amLODIPine BESYLATE 5 MG TABLET (FP) PO SCH (18:38)
[2017-06-11] MEDS: SENNOSIDES 8.6MG TABLET (FP) PO SCH (21:46)
[2017-06-12] MEDS: METRONIDAZOLE 500 MG PREMIXED 100 ML IVPB SCH ×3 (02:51→18:41)
[2017-06-12] MEDS: HEPARIN NA (PORCINE) 5,000 UNITS/ML 1ML VIAL SQ SCH ×2 (05:55→16:00)
[2017-06-12] MEDS: ALBUTEROL SO4 0.083% IH SOL 2.5 MG/3 ML VIAL.NEB. NEB SCH ×4 (06:53→23:29)
--- NOTE | 2017-06-12 08:02 | PN ---
Progress Note (short form) - Note Progress Note: Chief Complaint: Events noted, notes reviewed. Resting in bed denies any chest pain or dyspnea History of Present Illness: Seen and examined on telemetry. Events noted, notes reviewed. Resting in bed denies any chest pain or dyspnea Echocardiography reveled mild LV systolic dysfunction, mild to moderate MR, mild TR with RVSP between 30-40 mmHg - Current Medication List Current Medications Acetaminophen (Tylenol -) 500 mg PO TID PRN PRN Reason: pain/fever Last Admin: 06/11/17 13:00 Dose: 500 mg Albuterol Sulfate (Ventolin 0.083% Nebulizer Soln -) 1 amp NEB QIDR [facility] Last Admin: 06/12/17 06:53 Dose: 1 amp Amlodipine Besylate (Norvasc -) 5 mg PO DAILY [facility] Last Admin: 06/11/17 18:38 Dose: 5 mg Aspirin (Ecotrin -) 81 mg PO DAILY [facility] Last Admin: 06/11/17 12:48 Dose: Not Given Cyanocobalamin (Vitamin B12 -) 1,000 mcg PO DAILY [facility] Last Admin: 06/11/17 12:49 Dose: Not Given Ergocalciferol (Drisdol -) 50,000 unit PO Johnston@10 [facility] Heparin Sodium (Porcine) (Heparin -) 5,000 unit SQ TID [facility] Last Admin: 06/12/17 05:55 Dose: 5,000 unit Ceftriaxone Sodium (Rocephin 1gm Ivpb (Pre-Docked)) 50 mls @ 100 mls/hr IVPB DAILY [facility] Last Admin: 06/11/17 12:55 Dose: 100 mls/hr Metronidazole (Flagyl 500mg Premixed Ivpb -) 100 mls @ 100 mls/hr IVPB Q8H-IV [facility] Last Admin: 06/12/17 02:51 Dose: 100 mls/hr Dextrose/Sodium Chloride (D5-1/2ns -) 1,000 mls @ 50 mls/hr IV ASDIR [facility] Non-Formulary Medication (Mirabegron [Myrbetriq]) 25 mg PO DAILY [facility] Senna (Senna -) 2 tab PO HS [facility] Last Admin: 06/11/17 21:46 Dose: 2 tab Solifenacin (Vesicare -) 5 mg PO DAILY [facility] Last Admin: 06/11/17 12:48 Dose: Not Given Review of systems: Cardiovascular: As outlined above Pulmonary: No Cough or Sputum Production Gastrointestinal: No Nausea, Vomiting, Diarrhea, Constipation or Abdominal Discomfort Musculoskeletal: No Symptoms reported - Objective Vital Signs: Last Vital Signs Temp Pulse Resp BP Pulse Ox 99.6 F 79 20 122/58 94 L 06/12/17 06:00 06/12/17 06:00 06/12/17 06:00 06/12/17 06:00 06/11/17 21:00 Intake & Output 06/09/17 06/10/17 06/11/17 06/12/17 23:59 23:59 23:59 23:59 Intake Total 760 350 720 Output Total 250 Balance 510 350 720 Weight 200 lb 200 lb 167 lb 6 oz Neck: Supple Negative JVD no bruit appreciated Cardiovascular: S1 and S2 Regular Rate and Rhythm No murmurs clicks or gallops Respiratory: Diminished Breath Sounds at the Bases Bilaterally Gastrointestinal: Soft Normal Bowel Sounds Ext: No Edema Labs: CBC, BMP 06/11/17 06:05 Assessment/Plan ASSESSMENT: 1. Acute renal insufficiency with hyperkalemia, resolved hyperkalemia 2. Coronary artery disease angina pectoris, EKG changes pseudo-normalization of anterior T-wave abnormality 3. Diastolic/Systolic left ventricular dysfunction with chronic class I [place] [employer] classification left ventricular failure, compensated euvolemic to hypovolemic 4. HTN 5. Organic brain syndrome/dementia 6. Choledocholithiasis, evaluation in progress PLAN: 1. Resume beta olivier therapy with Coreg, hemodynamics permitting 2. Continue Norvasc 3. Ideally ACEI or ARB therapy to be re-initiated but would defer pending renal function stabilization 4. Continue to withhold Diuretic therapy including Lasix and Aldactone 5. Recommend initiation of Ecotrin therapy once no additional intervention is planned Kristina Burrell M.D.
[2017-06-12 08:30] LABS: ALBUMIN 2.9 g/dl (3.4-5.0); ALK PHOS 143 U/L (45-117); ANION GAP 8 (8-16); CALCIUM 8.4 mg/dL (8.5-10.1); CO2 26 mmol/L (21-32); GLUCOSE,RANDOM 96 mg/dL (74-106); SGOT/AST 316 U/L (15-37); SGPT/ALT 249 U/L (12-78); TOT PROT 6.1 g/dl (6.4-8.2)
[2017-06-12] MEDS: CEFTRIAXONE 50 ML IVPB SCH (09:32)
[2017-06-12] MEDS: CARVEDILOL 3.125 MG TABLET (FP) PO SCH ×2 (09:38→21:48)
[2017-06-12] MEDS: CYANOCOBALAMIN 1,000 MCG TABLET (FP) PO SCH (09:38)
[2017-06-12] MEDS: SOLIFENACIN SUCCINATE 5 MG TAB (FP) PO SCH (09:38)
[2017-06-12] MEDS: ASPIRIN COATED 81 MG TABLET.EC PO SCH (09:38)
[2017-06-12] MEDS: amLODIPine BESYLATE 5 MG TABLET (FP) PO SCH (09:38)
[2017-06-12] MEDS ORDERED: POTASSIUM CHLORIDE TABS 20 MEQ TABLET.ER (FP) PO ONE (10:00)
[2017-06-12 10:48] LABS: MCHC 32.6 g/dl (32.0-36.0); MEAN PLT VOLUME 9.7 fl (7.5-11.1); PLATELET COUNT 170 K/MM3 (134-434); WHITE BLOOD COUNT 17.2 K/mm3 (4.0-10.0)
--- NOTE | 2017-06-12 12:57 | PN ---
Teaching Attending Note Name of Resident: Jose Luis Bradshaw ATTENDING PHYSICIAN STATEMENT I saw and evaluated the patient. I reviewed the resident's note and discussed the case with the resident. I agree with the resident's findings and plan as documented. SUBJECTIVE: no fever or chills, cont to have RUQ abd pain. Cont to be nauseous OBJECTIVE: NAD , awake and cooperative HEENT: MMM , no JVD CV: RRR, No JVD Lungs : CTAB Ext : no edema Abd :soft, TTP in RUQ , with POsitive Roa's sign . liver is not percussed or palpated . no rebound tenderness or guarding ASSESSMENT AND PLAN: 87 y/o lady with h/o chronic systolic heart failure , DM , HTN, and dementia who presented with AMS , was found to have hyperkalemia and RAYO. 1- N/V/Abd pain: suspicion for Acute cholecystitis with choledocolithiasis given the acute jump in LFTS and dilated CBD on US . - HIDA to be continued today for more imaging - MRCP to detect any CBD stone - Ceftriaxone and flagyl - NPO - IVF - will consult GI , might need ERCP if there is a CBD stone -consult Surgery , for possible CCY pending HIDA - hold ASa 2- RAYO : prerenal in etiolgoy, resolved with IVF - cont ho hold lasix and aldactone - avoid NSAIDs 3- HYperkalemia : resolved - cont to monitor 3- H/o CHF : No acute decompensation - cont to hold diuresis - montior I&O and weight - carvedolol carefully - cont to hold ARB 4- HTN: cont to hold ARB . - cont norvasc , can substitute with ARB if renal function remains stable - Coreg now Dispo : HLOC family was not able to be reached, will try again today
--- NOTE | 2017-06-12 14:38 | PN ---
Progress Note, Physician History of Present Illness: Pt seen and examined at bedside. She is more awake and alert today. She denies shortness of breath. - Current Medication List Current Medications: Active Medications Acetaminophen (Tylenol -) 500 mg PO TID PRN PRN Reason: pain/fever Last Admin: 06/11/17 13:00 Dose: 500 mg Albuterol Sulfate (Ventolin 0.083% Nebulizer Soln -) 1 amp NEB QIDR [facility] Last Admin: 06/12/17 11:45 Dose: 1 amp Amlodipine Besylate (Norvasc -) 5 mg PO DAILY [facility] Last Admin: 06/12/17 09:38 Dose: 5 mg Carvedilol (Coreg -) 3.125 mg PO BID [facility] Last Admin: 06/12/17 09:38 Dose: 3.125 mg Cyanocobalamin (Vitamin B12 -) 1,000 mcg PO DAILY [facility] Last Admin: 06/12/17 09:38 Dose: 1,000 mcg Ergocalciferol (Drisdol -) 50,000 unit PO Johnston@10 [facility] Heparin Sodium (Porcine) (Heparin -) 5,000 unit SQ TID [facility] Last Admin: 06/12/17 05:55 Dose: 5,000 unit Ceftriaxone Sodium (Rocephin 1gm Ivpb (Pre-Docked)) 50 mls @ 100 mls/hr IVPB DAILY [facility] Last Admin: 06/12/17 09:32 Dose: 100 mls/hr Metronidazole (Flagyl 500mg Premixed Ivpb -) 100 mls @ 100 mls/hr IVPB Q8H-IV [facility] Last Admin: 06/12/17 09:30 Dose: 100 mls/hr Dextrose/Sodium Chloride (D5-1/2ns -) 1,000 mls @ 50 mls/hr IV ASDIR [facility] Last Admin: 06/12/17 09:25 Dose: 50 mls/hr Non-Formulary Medication (Mirabegron [Myrbetriq]) 25 mg PO DAILY [facility] Senna (Senna -) 2 tab PO HS [facility] Last Admin: 06/11/17 21:46 Dose: 2 tab Solifenacin (Vesicare -) 5 mg PO DAILY [facility] Last Admin: 06/12/17 09:38 Dose: 5 mg - Objective Vital Signs: Vital Signs Temperature 99.6 F 06/12/17 08:52 Pulse Rate 61 06/12/17 11:45 Respiratory Rate 18 06/12/17 08:52 Blood Pressure 108/56 06/12/17 08:52 O2 Sat by Pulse Oximetry (%) 95 06/12/17 11:45 Constitutional: Yes: Calm Eyes: Yes: Conjunctiva Clear HENT: Yes: Atraumatic Neck: Yes: Supple Cardiovascular: Yes: S1, S2 Respiratory: Yes: CTA Bilaterally Gastrointestinal: Yes: Soft Genitourinary: Yes: WNL Musculoskeletal: Yes: WNL Edema: No Neurological: Yes: Oriented Labs: CBC, BMP 06/12/17 10:42 06/12/17 05:50 INR, PTT INR 0.96 (0.82-1.09) 06/09/17 17:25 Problem List - Problems (1) Hyperkalemia Code(s): E87.5 - HYPERKALEMIA (2) Renal insufficiency Code(s): N28.9 - DISORDER OF KIDNEY AND URETER, UNSPECIFIED (3) CHF exacerbation Code(s): I50.9 - HEART FAILURE, UNSPECIFIED Qualifiers: Congestive heart failure type: combined Qualified Code(s): I50.43 - Acute on chronic combined systolic (congestive) and diastolic (congestive) heart failure (4) Hypertension Code(s): I10 - ESSENTIAL (PRIMARY) HYPERTENSION Qualifiers: Hypertension type: essential hypertension Qualified Code(s): I10 - Essential (primary) hypertension Assessment/Plan Current Medications Generic Name Dose Route Start Last Admin Trade Name Freq PRN Reason Stop Dose Admin Acetaminophen 500 mg 06/09/17 22:14 06/11/17 13:00 Tylenol - PO 500 mg TID PRN Administration pain/fever Albuterol Sulfate 1 amp 06/10/17 00:00 06/12/17 11:45 Ventolin 0.083% Nebulizer Soln - NEB 1 amp QIDR [facility] Administration Amlodipine Besylate 5 mg 06/11/17 17:15 06/12/17 09:38 Norvasc - PO 5 mg DAILY [facility] Administration Carvedilol 3.125 mg 06/12/17 10:00 06/12/17 09:38 Coreg - PO 3.125 mg BID [facility] Administration Cyanocobalamin 1,000 mcg 06/10/17 10:00 06/12/17 09:38 Vitamin B12 - PO 1,000 mcg DAILY [facility] Administration Ergocalciferol 50,000 unit 06/14/17 10:00 Drisdol - PO Johnston@10 [facility] Heparin Sodium (Porcine) 5,000 unit 06/09/17 22:45 06/12/17 05:55 Heparin - SQ 5,000 unit TID [facility] Administration Ceftriaxone Sodium 50 mls @ 100 mls/hr 06/11/17 12:45 06/12/17 09:32 Rocephin 1gm Ivpb (Pre-Docked) IVPB 100 mls/hr DAILY [facility] Administration Metronidazole 100 mls @ 100 mls/hr 06/11/17 12:45 06/12/17 09:30 Flagyl 500mg Premixed Ivpb - IVPB 100 mls/hr Q8H-IV [facility] Administration Dextrose/Sodium Chloride 1,000 mls @ 50 mls/hr 06/11/17 15:45 06/12/17 09:25 D5-1/2ns - IV 50 mls/hr ASDIR [facility] Administration Non-Formulary Medication 25 mg 06/10/17 10:00 Mirabegron [Myrbetriq] PO DAILY [facility] Senna 2 tab 06/10/17 22:00 06/11/17 21:46 Senna - PO 2 tab HS [facility] Administration Solifenacin 5 mg 06/10/17 10:00 06/12/17 09:38 Vesicare - PO 5 mg DAILY [facility] Administration Impression 1. RAYO 2. hyperkalemia 3. CAD 4. HTN 5. CHF 6. dementia Plan - gentle hydration until she starts eating - renal function is stabilizing - follow up hida - lfts are rising - check hep panel - diuretics on hold for now - wound not restart mobic or give nsaids - repeat labs in am Dr Holly
--- NOTE | 2017-06-12 15:46 | PN ---
Progress Note (short form) - Note Progress Note: surgery pt seen and examined. full consult dictated. 87f with multiple medical problems including htn, chf, dementia, vertigo, admitted for syncope and acute kidney injury. LFTS began to rise and pt was noted to have new ruq tenderness and u/s from gallstones with 9.5mm cbd. HIDA showed cholestasis of the liver consistent with hepatocellular disease but non read MRCP picture appears to show obvious choledocholithiasis. on exam abd is soft, nd, with mild ruq tenderness. no obvious surgical scars. plan- recommend urgent gi eval for ERCP assuming MRI is read as choledocholithiasis. Pt should consider cholecystectomy after decompression of cbd to prevent future recurrence if found to be a candidate for general anesthesia and major surgery. In the setting of recent syncope, acute kidney injury, liver injury would suggest evaluation as outpt once patient can be fully optimized.
[2017-06-12] MEDS ORDERED: ROCURONIUM BROMIDE 50 MG/5 ML VIAL ONE (15:47)
[2017-06-12] MEDS ORDERED: PROPOFOL 20 ML ONE ×3 (15:47)
[2017-06-12] MEDS ORDERED: ePHEDrine SULFATE 50 MG/1 ML AMPULE ONE (15:47)
[2017-06-12] MEDS ORDERED: SUCCINYLCHOLINE CHLORIDE 200 MG/10 ML VIAL ONE (15:47)
[2017-06-12] MEDS ORDERED: NEOSTIGMINE METHYLSULFATE 0.5 MG/ML - 10 ML MDV ONE (15:51)
[2017-06-12] MEDS ORDERED: GLYCOPYRROLATE 0.2 MG/1 ML VIAL ONE ×4 (15:51)
--- NOTE | 2017-06-12 16:03 | PN ---
Physical Exam: SUBJECTIVE: Patient seen and examined at bedside. Pt had some vomiting overnight. Pt complains of right sided abdominal pain. No other complaints. No fever, dizziness, diarrhea, dysuria. OBJECTIVE: Vital Signs Period Temp Pulse Resp BP Sys/Savage Pulse Ox Last 24 Hr 98.0 F-99.7 F 60-89 18-20 105-141/52-66 94-97 GENERAL: The patient is awake, alert, and fully oriented, in no acute distress. HEAD: Normal with no signs of trauma. EYES: sclera anicteric, conjunctiva clear. No ptosis. ENT: oropharynx clear without exudates, moist mucous membranes. NECK: Trachea midline, full range of motion, supple. LUNGS: Breath sounds equal, clear to auscultation bilaterally, no wheezes, no crackles, no accessory muscle use. HEART: Regular rate and rhythm, S1, S2 without murmur, rub or gallop. ABDOMEN: Soft,RUQ tenderness, nondistended, normoactive bowel sounds, guarding, no rebound, no hepatosplenomegaly, no masses. EXTREMITIES: 2+ pulses, warm, well-perfused, no edema. NEUROLOGICAL: Cranial nerves II through XII grossly intact. Normal speech, gait not observed. PSYCH: Normal mood, normal affect. SKIN: Warm, dry, normal turgor, no rashes or lesions noted Laboratory Results - last 24 hr 06/12/17 06/12/17 06/12/17 02:55 05:50 06:38 WBC RBC Hgb Hct MCV MCH MCHC RDW Plt Count MPV Sodium 144 Potassium 3.2 L Chloride 110 H Carbon Dioxide 26 Anion Gap 8 BUN 29 H Creatinine 1.0 Creat Clearance w eGFR 52.69 POC Glucometer 151 113 Random Glucose 96 Calcium 8.4 L Total Bilirubin 3.0 H D AST 316 H D ALT 249 H D Alkaline Phosphatase 143 H D Total Protein 6.1 L Albumin 2.9 L 06/12/17 06/12/17 10:42 12:03 WBC 17.2 H D RBC 3.29 L Hgb 10.8 Hct 33.2 MCV 101.0 H MCH 33.0 MCHC 32.6 RDW 14.0 Plt Count 170 MPV 9.7 Sodium Potassium Chloride Carbon Dioxide Anion Gap BUN Creatinine Creat Clearance w eGFR POC Glucometer 127 Random Glucose Calcium Total Bilirubin AST ALT Alkaline Phosphatase Total Protein Albumin Active Medications Generic Name Dose Route Start Last Admin Trade Name Sonia PRN Reason Stop Dose Admin Acetaminophen 500 mg 06/09/17 22:14 06/11/17 13:00 Tylenol - PO 500 mg TID PRN Administration pain/fever Albuterol Sulfate 1 amp 06/10/17 00:00 06/12/17 11:45 Ventolin 0.083% Nebulizer Soln - NEB 1 amp QIDR JENNIFER Administration Amlodipine Besylate 5 mg 06/11/17 17:15 06/12/17 09:38 Norvasc - PO 5 mg DAILY JENNIFER Administration Carvedilol 3.125 mg 06/12/17 10:00 06/12/17 09:38 Coreg - PO 3.125 mg BID JENNIFER Administration Cyanocobalamin 1,000 mcg 06/10/17 10:00 06/12/17 09:38 Vitamin B12 - PO 1,000 mcg DAILY JENNIFER Administration Ergocalciferol 50,000 unit 06/14/17 10:00 Drisdol - PO Johnston@10 JENNIFER Heparin Sodium (Porcine) 5,000 unit 06/09/17 22:45 06/12/17 05:55 Heparin - SQ 5,000 unit TID JENNIFER Administration Ceftriaxone Sodium 50 mls @ 100 mls/hr 06/11/17 12:45 06/12/17 09:32 Rocephin 1gm Ivpb (Pre-Docked) IVPB 100 mls/hr DAILY JENNIFER Administration Metronidazole 100 mls @ 100 mls/hr 06/11/17 12:45 06/12/17 09:30 Flagyl 500mg Premixed Ivpb - IVPB 100 mls/hr Q8H-IV JENNIFER Administration Dextrose/Sodium Chloride 1,000 mls @ 50 mls/hr 06/11/17 15:45 06/12/17 09:25 D5-1/2ns - IV 50 mls/hr ASDIR JENNIFER Administration Non-Formulary Medication 25 mg 06/10/17 10:00 Mirabegron [Myrbetriq] PO DAILY JENNIFER Senna 2 tab 06/10/17 22:00 06/11/17 21:46 Senna - PO 2 tab HS JENNIFER Administration Solifenacin 5 mg 06/10/17 10:00 06/12/17 09:38 Vesicare - PO 5 mg DAILY JENNIFER Administration ASSESSMENT/PLAN: 87yo Russian-speaking F from [facility] with h/o dementia, CHF , HTN, diabetes, vertigo admitted to tele inpatient for hyperkalemia with possible EKG changes and altered mentation with baseline unknown. Head CT neg for acute pathology; CXR moderate congestion; K 6.3 #Choledocholithiasis -RUQ Abd pain with tenderness -Abd U/S shows CBD dilation -HIDA scan suggestive of hepatobiliary disease -MRCP to confirm Dx, possible ERCP to follow -pt made NPO -flagyl and ceftriaxone # Hyperkalemia: resolved - after discussion with cardio, EKG established be a RETURN TO BASELINE -treated with nebs, kayexelate -Aldactone and ARB HELD from home meds -Follow-up BMP # RAYO -Stopped ARB and aldactone -Renally dosed Mirabegron down to 25mg -Nephro consultation -Avoid nephrotoxins #Fluid status -Pt not in CHF. No JVD, crackles, pedal edema -repeat CXR looks improved # Altered mental status: RESOLVED -Pt's baseline per chart seems to be alert and orientedx2; however unknown if deterioration from possible dementia over past year -Head CT w/o contrast negative for acute pathology #Cards consult -hold Ecotrin -resume Losartan once stable -consider carvedilol once stable #FEN - not on fluids - lytes wnl - diabetic diet PPX: DVT: Heparin 5000 SQ q8 GI: Not indicated at current time Dispo: Admit to tele inpatient Jose Luis Bradshaw MD PGY-1 Visit type - Emergency Visit Emergency Visit: No - New Patient This patient is new to me today: No - Critical Care Critical Care patient: No - Discharge Referral Referred to [facility] Med P.C.: No
[2017-06-12] MEDS ORDERED: IOHEXOL 300 MG/ML INFUS..BTL IV ONE (16:50)
[2017-06-12] MEDS ORDERED: LABETALOL HCL 5 MG/1 ML (100MG/20 ML VIAL) ONE (17:28)
[2017-06-12] MEDS ORDERED: ONDANSETRON 4 MG/2 ML VIAL IVPUSH PRN (17:31)
[2017-06-12] MEDS ORDERED: LACTATED RINGERS SOLUTION 1,000 ML IV SCH ×2 (17:45→23:45)
--- NOTE | 2017-06-12 17:46 | PN ---
Progress Note (short form) - Note Progress Note: GI Procedure NOte: Please see scanned ERCP reports. Consultation to follow as the procedure had to be performed emergently. Multiple small and large CBS stones extracted. A stent was placed as the sphincterotomy became swollen and began to close due to multiple stone extractions and as residual stone debris could not be excluded within such a dilated common bile duct. Case discussed with Dr. Bradshaw. Will need cholecystectomy to prevent refilling of the CBD with stones. Will repeat ERCP after 3 months of Actigall therapy to remove stent and possible residual stones or debris.
--- NOTE | 2017-06-12 17:54 | CON.GI ---
Consult Consult Specialty:: Gastroenterology Referred by:: Dr. Jose Luis Bradshaw Reason for Consultation:: Abdominal pain, gallstones and jaundice - History of Present Illness Chief Complaint: Abdominal pain. History of Present Illness: This 87 [place]an speaking female was transferred from an assisted living center with hypotension, hyperkalemia and RAYO. Her initial LFTs were unremarkable. The consultation was performed with the help of her Bel[place]an speaking resident Dr. Jose Luis Bradshaw. She developed abdominal pain which led to a sonogram that revealed stones. A Hida scan revealed no isotope exiting the liver and an MRCP reveals multiple CBD stones. Her WBC vance from 6K to 17K overnight and her bilirubin form 0.4 to 3.0. - History Source History Provided By: Patient, Medical Record - Past Medical History TISSUE PACKER: Yes: Dementia Cardio/Vascular: Yes: CAD, CHF, HTN, Hyperlipdemia Hepatobiliary: Yes: Cholelithiasis, Choledocholithiasis Renal/: Yes: Renal Inusuff ...: No - Past Surgical History Past Surgical History: Yes: None - Alcohol/Substance Use Hx Alcohol Use: No - Smoking History Smoking history: Unknown if ever smoked Have you smoked in the past 12 months: No Aproximately how many cigarettes per day: 6 - Social History Usual Living Arrangement: Assisted Living ADL: Support Services Place of : Other ([facility]) Home Medications - Allergies Allergies/Adverse Reactions: Allergies Allergy/AdvReac Type Severity Reaction Status Date / Time No Known Allergies Allergy Verified 06/09/17 17:26 - Home Medications Home Medications: Ambulatory Orders Acetaminophen [Pain Reliever] 500 mg PO TID PRN 05/18/16 Cyanocobalamin [Vitamin B12 -] 1,000 mcg PO DAILY 05/18/16 Mirabegron [Myrbetriq] 50 mg PO DAILY 05/18/16 Oxybutynin Chloride [Oxybutynin Chloride ER] 10 mg PO DAILY 05/18/16 Aspirin [ASA -] 81 mg PO DAILY tab.chew 05/23/16 Losartan Potassium [Cozaar -] 100 mg PO DAILY tablet 05/23/16 Spironolactone [Aldactone -] 25 mg PO DAILY tablet 05/23/16 Ergocalciferol [Drisdol -] 50,000 unit PO Q7D@1000 06/09/17 Furosemide [Lasix -] 20 mg PO DAILY 06/09/17 Meloxicam 7.5 mg PO ASDIR 06/09/17 Sennosides [Senna] 2 tab PO DAILY 06/09/17 Family Disease History - Family Disease History Family History: Unable to Obtain Review of Systems Unable to obtain ROS, reason: unable to obtain Physical Exam-GI Vital Signs: Vital Signs Temperature 98.8 F 06/12/17 17:14 Pulse Rate 71 06/12/17 17:45 Respiratory Rate 19 06/12/17 17:45 Blood Pressure 137/75 06/12/17 17:45 O2 Sat by Pulse Oximetry (%) 100 06/12/17 17:45 CBC,CMP WBC 17.2 K/mm3 (4.0-10.0) H D 06/12/17 10:42 RBC 3.29 M/mm3 (3.60-5.2) L 06/12/17 10:42 Hgb 10.8 GM/dL (10.7-15.3) 06/12/17 10:42 Hct 33.2 % (32.4-45.2) 06/12/17 10:42 MCV 101.0 fl (80-96) H 06/12/17 10:42 MCH 33.0 pg (25.7-33.7) 06/12/17 10:42 MCHC 32.6 g/dl (32.0-36.0) 06/12/17 10:42 RDW 14.0 % (11.6-15.6) 06/12/17 10:42 Plt Count 170 K/MM3 (134-434) 06/12/17 10:42 MPV 9.7 fl (7.5-11.1) 06/12/17 10:42 Neutrophils % 61.8 % (42.8-82.8) D 06/11/17 06:05 Lymphocytes % 28.3 % (8-40) D 06/11/17 06:05 Monocytes % 7.8 % (3.8-10.2) 06/11/17 06:05 Eosinophils % 1.6 % (0-4.5) D 06/11/17 06:05 Basophils % 0.5 % (0-2.0) 06/11/17 06:05 Sodium 144 mmol/L (136-145) 06/12/17 05:50 Potassium 3.2 mmol/L (3.5-5.1) L 06/12/17 05:50 Chloride 110 mmol/L (98-107) H 06/12/17 05:50 Carbon Dioxide 26 mmol/L (21-32) 06/12/17 05:50 Anion Gap 8 (8-16) 06/12/17 05:50 BUN 29 mg/dL (7-18) H 06/12/17 05:50 Creatinine 1.0 mg/dL (0.55-1.02) 06/12/17 05:50 Creat Clearance w eGFR 52.69 (>60) 06/12/17 05:50 POC Glucometer 127 UNITS (()) 06/12/17 12:03 Random Glucose 96 mg/dL (74-106) 06/12/17 05:50 Hemoglobin A1c % 6.3 % (4.8-6.0) H 06/10/17 05:48 Calcium 8.4 mg/dL (8.5-10.1) L 06/12/17 05:50 Total Bilirubin 3.0 mg/dL (0.2-1.0) H D 06/12/17 05:50 AST 316 U/L (15-37) H D 06/12/17 05:50 ALT 249 U/L (12-78) H D 06/12/17 05:50 Alkaline Phosphatase 143 U/L (45-117) H D 06/12/17 05:50 Creatine Kinase 47 IU/L (26-192) 06/09/17 17:25 Troponin I < 0.02 ng/ml (0.00-0.05) 06/09/17 23:10 B-Natriuretic Peptide 554.72 pg/ml (5-450) H 06/09/17 23:10 Total Protein 6.1 g/dl (6.4-8.2) L 06/12/17 05:50 Albumin 2.9 g/dl (3.4-5.0) L 06/12/17 05:50 Lipase 130 U/L (73-393) 06/11/17 06:05 Current Medications Generic Name Dose Route Start Last Admin Trade Name Freq PRN Reason Stop Dose Admin Acetaminophen 500 mg 06/09/17 22:14 06/11/17 13:00 Tylenol - PO 500 mg TID PRN Administration pain/fever Albuterol Sulfate 1 amp 06/10/17 00:00 06/12/17 11:45 Ventolin 0.083% Nebulizer Soln - NEB 1 amp QIDR JENNIFER Administration Amlodipine Besylate 5 mg 06/11/17 17:15 06/12/17 09:38 Norvasc - PO 5 mg DAILY JENNIFER Administration Carvedilol 3.125 mg 06/12/17 10:00 06/12/17 09:38 Coreg - PO 3.125 mg BID JENNIFER Administration Cyanocobalamin 1,000 mcg 06/10/17 10:00 06/12/17 09:38 Vitamin B12 - PO 1,000 mcg DAILY JENNIFER Administration Ergocalciferol 50,000 unit 06/14/17 10:00 Drisdol - PO Johnston@10 JENNIFER Metronidazole 100 mls @ 100 mls/hr 06/11/17 12:45 06/12/17 09:30 Flagyl 500mg Premixed Ivpb - IVPB 100 mls/hr Q8H-IV JENNIFER Administration Dextrose/Sodium Chloride 1,000 mls @ 50 mls/hr 06/11/17 15:45 06/12/17 09:25 D5-1/2ns - IV 50 mls/hr ASDIR JENNIFER Administration Levofloxacin 100 mls @ 100 mls/hr 06/12/17 17:34 Levaquin 500 Mg Premixed Ivpb - IVPB 06/12/17 18:33 DAILY ONE Lactated Ringer's 1,000 mls @ 150 mls/hr 06/12/17 17:45 Lactated Ringers Solution IV 06/12/17 23:45 ASDIR JENNIFER Lactated Ringer's 1,000 mls @ 125 mls/hr 06/12/17 23:45 Lactated Ringers Solution IV 06/13/17 07:45 ASDIR JENNIFER Lactated Ringer's 1,000 mls @ 100 mls/hr 06/13/17 07:45 Lactated Ringers Solution IV 06/13/17 14:45 ASDIR JENNIFER Lactated Ringer's 1,000 mls @ 75 mls/hr 06/13/17 14:45 Lactated Ringers Solution IV ASDIR JENNIFER Non-Formulary Medication 25 mg 06/10/17 10:00 Mirabegron [Myrbetriq] PO DAILY JENNIFER Ondansetron HCl 4 mg 06/12/17 17:31 Zofran Injection IVPUSH 06/12/17 23:32 Q6H PRN NAUSEA AND/OR VOMITING Senna 2 tab 06/10/17 22:00 06/11/17 21:46 Senna - PO 2 tab HS JENNIFER Administration Solifenacin 5 mg 06/10/17 10:00 06/12/17 09:38 Vesicare - PO 5 mg DAILY JENNIFER Administration Constitutional: Yes: Anxious Eyes: Yes: Sclera Icterus HENT: Yes: Normocephalic Neck: Yes: Supple Cardiovascular: Yes: Regular Rate and Rhythm Respiratory: Yes: CTA Bilaterally Gastrointestinal Inspection: Yes: Distention ...Auscultate: Yes: Hypoactive Bowel Sounds ...Palpate: Yes: Tenderness (RUQ) ...Percussion: Yes: Tympanitic ...Rectal Exam: Yes: Deferred Peripheral Pulses WNL: Yes Neurological: Yes: Alert Labs: CBC, BMP 06/12/17 10:42 06/12/17 05:50 INR, PTT INR 0.96 (0.82-1.09) 06/09/17 17:25 Laboratory Tests 06/11/17 06/12/17 06/12/17 06:05 05:50 10:42 Plt Count 170 Total Bilirubin 0.4 3.0 H D AST 11 L 316 H D ALT 18 249 H D Alkaline Phosphatase 79 143 H D Albumin 2.9 L Lipase 130 Imaging - Results Ultrasound: Report Reviewed MRI: Report Reviewed (Joe Flores Name: [facility] DEPARTMENT OF RADIOLOGY Phys: Chasity Carlisle RESIDENT : [id number] Age: 87 Sex: F [facility] Acct: [id number] Loc: [id number] Exam Date: 06/12/17 Status: [place] [address] Unit Number: [id number] EXAM#: TYPE/EXAM: RESULT: [id number] MRI/ABDOMEN MRI W/O CONTRAST /MRCP ABDOMEN MRI including MRCP Clinical information: evaluate for choledocholithiasis Multiplanar, multisequential imaging was performed. The current study is correlated with recently performed sonography and hepatobiliary scintigraphy. The gallbladder is overdistended with associated diffuse wall thickening and pericholecystic fluid accumulation consistent with acute inflammation. Gallbladder calculi are noted the most prominent measuring 4 x 3 cm. There appears to be several 2 mm calculi within the cystic duct. Trace perihepatic free fluid is seen. The common bile duct is dilated with a 0.9 cm diameter. At the level of the ampulla there is cyst like dilatation of the common bile duct which bulges into the duodenal lumen. Approximately five calculi are seen within the lower third of the common bile duct the most prominent measuring 0.6 cm in diameter. Minimal to mild intrahepatic biliary tract dilatation is noted. There is partial imaging of left atrial dilatation. The liver, spleen, pancreas, and adrenal glands and kidneys demonstrate no obvious noncontrast abnormality allowing for respiratory motion artifact. There is no aortic aneurysm. No gross lymphadenopathy is noted. IMPRESSION: Acute calculus cholecystitis is identified. Choledocholithiasis is seen as discussed above with associated mild common bile duct dilatation. Cardiomegaly. Reported By: Rohit Ferraro MD 06/12/171637 Technologist: Navin Medina Transcribed Date/Time : 06/12/171637) Problem List - Problems (1) Cholangitis due to bile duct calculus with obstruction Code(s): K80.31 - CALCULUS OF BILE DUCT W CHOLANGITIS, UNSP, WITH OBSTRUCTION (2) Jaundice with stoppage of bile flow Code(s): R17 - UNSPECIFIED JAUNDICE (3) Choledocholithiasis with obstruction Code(s): K80.51 - CALCULUS OF BILE DUCT W/O CHOLANGITIS OR CHOLECYST W OBST (4) Cholelithiasis and acute cholecystitis with obstruction Code(s): K80.01 - CALCULUS OF GALLBLADDER W ACUTE CHOLECYSTITIS W OBSTRUCTION (5) Abdominal pain Code(s): R10.9 - UNSPECIFIED ABDOMINAL PAIN Assessment/Plan The rapid rise in WBC with onset of jaundice indicates cholangitis due to choledocholithiasis in a diabetic. Given the risks of ascending cholangitis progressing rapidly to septic shock with the help of Dr Bradshaw serving as my interpreter deaf informed consent was obtained to proceed with emergent ERCP . This note is therefore being written after the procedure was completed. ERCP led to the removal of multiple CBD stones and elicited pus from the common bile duct. A stent was placed as residual stones could not be excluded in such a dilated duct and due to impending sphincterotomy closure due to swelling related to multiple stone extractions. Her Ceftriaxone was stopped in favor of levaquin so as to allow for Ringer's lactate infusions to try to prevent ERCP associated pancreatitis. The patient had been made aware of the possibility of multiorgan failure associated with such pancreatitis as well as the risks of perforation and hemorrhage leading to transfusions and emergent surgery. The patient will need cholecystectomy to prevent repeated dumping of gallstones on the CBD as as she also appears to have cholecystitis. Dr Díaz will be covering this weekend
[2017-06-12] MEDS: LEVOFLOXACIN 500 MG IVPB 100 ML IVPB SCH (18:41)
[2017-06-12] MEDS: SENNOSIDES 8.6MG TABLET (FP) PO SCH (21:48)
[2017-06-13] MEDS: METRONIDAZOLE 500 MG PREMIXED 100 ML IVPB SCH ×3 (01:45→17:05)
[2017-06-13] MEDS: ALBUTEROL SO4 0.083% IH SOL 2.5 MG/3 ML VIAL.NEB. NEB SCH ×4 (05:39→23:35)
[2017-06-13 07:37] LABS: BASOPHIL 0.2 % (0-2.0); EOSINOPHIL 0.3 % (0-4.5); MCH 33.3 pg (25.7-33.7); MEAN CELL VOLUME 100.9 fl (80-96); MEAN PLT VOLUME 9.5 fl (7.5-11.1); NEUTROPHILS 89.3 % (42.8-82.8); PLATELET COUNT 147 K/MM3 (134-434); WHITE BLOOD COUNT 11.1 K/mm3 (4.0-10.0)
[2017-06-13 07:41] LABS: ALBUMIN 2.8 g/dl (3.4-5.0); ANION GAP 6 (8-16); CALCIUM 8.4 mg/dL (8.5-10.1); CO2 27 mmol/L (21-32); GLUCOSE,RANDOM 93 mg/dL (74-106); SGOT/AST 101 U/L (15-37); SGPT/ALT 163 U/L (12-78)
--- NOTE | 2017-06-13 07:41 | CONS ---
DATE OF CONSULTATION: 06/12/2017 REASON FOR CONSULTATION: Acute cholecystitis, cholelithiasis. This is a consultation at the request of Dr. Chery. This is an inpatient consultation. BRIEF HISTORY: This is an 87-year-old female with multiple medical problems who was admitted to [facility] status post syncopal episode and acute kidney injury. At the time of her ER visit, she was noted to have only mild suprapubic abdominal tenderness on exam. She developed markedly elevated liver function tests and was noted to now have right upper quadrant tenderness. She had an ultrasound done of her gallbladder which confirmed gallstones and showed a dilated common bile duct of 9.5 mm. She went for a HIDA scan which showed rapid uptake of tracer but did not leave the liver. This was felt by the radiologist to be interpreted as hepatocellular disease. She just went for an MRCP which has not been officially read but appears to have obvious stones in the distal common bile duct. Based on this, a surgical consultation was requested. PAST MEDICAL HISTORY: Significant for hypertension, congestive heart failure, vertigo, dementia. PAST SURGICAL HISTORY: Unavailable and the patient is not a good historian, but she has no surgical scars noted. HOME MEDICATIONS: Include aspirin, Aldactone, Lasix, and meloxicam. FAMILY HISTORY: Noncontributory. ALLERGIES: She has no known drug allergies. REVIEW OF SYSTEMS: Unobtainable. PHYSICAL EXAMINATION:General: This is a well-developed, well-nourished, 87-year-old female in no distress. Vital Signs: She is afebrile. HEENT: Her head is normocephalic. Her sclerae are anicteric. Neck: Supple. Chest: Clear. Abdomen: Soft. She has mild right upper quadrant tenderness without rebound or guarding. She has no obvious surgical scars. Extremities: Have trace edema. LABORATORY DATA: On review of her laboratory, her white blood cell count today is elevated at 17.2. Her chemistries show a bilirubin of 3.0, an AST of 316, an ALT of 249, and an alkaline phosphatase of 143. IMAGING: As in HPI. ASSESSMENT: This is an 87-year-old female with multiple medical problems admitted for acute kidney injury that appears to have improved with intravenous fluid as well as a syncopal episode. She now has markedly elevated liver function tests with gallstones and a dilated common bile duct. The magnetic resonance imaging has not been officially read, but she appears to have choledocholithiasis as well. RECOMMENDATIONS: At this point, we recommend an urgent GI evaluation as the patient may require an ERCP. Afterwards, consideration could be made toward cholecystectomy to prevent future recurrence assuming the patient is deemed a candidate for general anesthesia and major abdominal surgery. Assuming that is the case, would defer any cholecystectomy to an outpatient when the patient can be better optimized and recovered from the injury to her liver, injury to her kidney, as well as be evaluated further for her syncope. Will evaluate the patient and discuss surgical options as an outpatient. Thank you for this consultation. Phone number [phone]. DO SAYRA VILLATORO/[id number]
[2017-06-13 07:43] LABS: ALK PHOS 136 U/L (45-117); BILIRUBIN,DIRECT 0.8 mg/dL (0.0-0.2); BILIRUBIN,TOTAL 1.1 mg/dL (0.2-1.0); CREATININE 0.9 mg/dL (0.55-1.02); TOT PROT 5.9 g/dl (6.4-8.2)
[2017-06-13] MEDS ORDERED: LACTATED RINGERS SOLUTION 1,000 ML IV SCH ×2 (07:45→14:45)
[2017-06-13 07:46] LABS: C-REACTIVE PROTEIN 13.8 MG/DL (0.00-0.3)
--- NOTE | 2017-06-13 08:51 | PN ---
Teaching Attending Note Name of Resident: Chasity Carlisle ATTENDING PHYSICIAN STATEMENT I saw and evaluated the patient. I reviewed the resident's note and discussed the case with the resident. I agree with the resident's findings and plan as documented. SUBJECTIVE: no fever or chills, denies abd pain , has no N/V. n o events over night OBJECTIVE: NAD , awake and cooperative HEENT: MMM , no JVD CV: RRR, No JVD Lungs: bibasilar crackles today Ext : no edema Abd :soft, TTP in RUQ . liver is not percussed or palpated . no rebound tenderness or guarding . ASSESSMENT AND PLAN: 87 y/o lady with h/o chronic systolic heart failure , DM , HTN, and dementia who presented with AMS , was found to have hyperkalemia and RAYO. 1- Choledocolithiasis with Ascending cholangitis: s/p urgent ERCP yesterday with removal of CBd stones LFTS improved, and patient abd pain has much improved. N/V resolved. Although Lipase is elevated , she has no abd pain and just mild tenderness - cont IVF carefully as she developed crackles and has reduced EF - cont Abx - CBC pending today - follow repeat blo0od cx - Appreciate Dr. Best help - will need cholecystectomy 2- RAYO : prerenal in etiolgoy, resolved with IVF - cont to hold lasix and aldactone - avoid NSAIDs 3- H/o CHF : No acute decompensation Tele reviewed. no events - cont to hold diuresis - cont carvedolol - cont to hold ARB , will resume if renal function remains stable 4- HTN: cont to hold ARB . - cont norvasc , can substitute with ARB if renal function remains stable tomorrow - Coreg now Dispo : OC
[2017-06-13] MEDS ORDERED: SODIUM CHLORIDE 1,000 ML IV SCH (09:00)
[2017-06-13] MEDS: CYANOCOBALAMIN 1,000 MCG TABLET (FP) PO SCH (09:27)
[2017-06-13] MEDS: CARVEDILOL 3.125 MG TABLET (FP) PO SCH ×2 (09:27→22:11)
[2017-06-13] MEDS: amLODIPine BESYLATE 5 MG TABLET (FP) PO SCH (09:27)
[2017-06-13] MEDS: SOLIFENACIN SUCCINATE 5 MG TAB (FP) PO SCH (09:27)
--- NOTE | 2017-06-13 10:21 | PN ---
Progress Note (short form) - Note Progress Note: Chief Complaint: Events noted, notes reviewed. Resting in bed denies any chest pain or dyspnea, denies any abdominal discomfort History of Present Illness: Seen and examined on telemetry. Events noted, notes reviewed. Resting in bed denies any chest pain or dyspnea, denies any abdominal discomfort Post ERCP yesterday Echocardiography reveled mild LV systolic dysfunction, mild to moderate MR, mild TR with RVSP between 30-40 mmHg - Current Medication List Current Medications Acetaminophen (Tylenol -) 500 mg PO TID PRN PRN Reason: pain/fever Last Admin: 06/11/17 13:00 Dose: 500 mg Albuterol Sulfate (Ventolin 0.083% Nebulizer Soln -) 1 amp NEB QIDR [facility] Last Admin: 06/13/17 05:39 Dose: 1 amp Amlodipine Besylate (Norvasc -) 5 mg PO DAILY [facility] Last Admin: 06/13/17 09:27 Dose: 5 mg Carvedilol (Coreg -) 3.125 mg PO BID [facility] Last Admin: 06/13/17 09:27 Dose: 3.125 mg Cyanocobalamin (Vitamin B12 -) 1,000 mcg PO DAILY [facility] Last Admin: 06/13/17 09:27 Dose: 1,000 mcg Ergocalciferol (Drisdol -) 50,000 unit PO Johnston@10 [facility] Metronidazole (Flagyl 500mg Premixed Ivpb -) 100 mls @ 100 mls/hr IVPB Q8H-IV [facility] Last Admin: 06/13/17 09:27 Dose: 100 mls/hr Levofloxacin (Levaquin 500 Mg Premixed Ivpb -) 100 mls @ 100 mls/hr IVPB DAILY [facility] Last Admin: 06/12/17 18:41 Dose: 100 mls/hr Sodium Chloride (Normal Saline -) 1,000 mls @ 75 mls/hr IV ASDIR [facility] Last Admin: 06/13/17 09:27 Dose: 75 mls/hr Non-Formulary Medication (Mirabegron [Myrbetriq]) 25 mg PO DAILY [facility] Senna (Senna -) 2 tab PO HS [facility] Last Admin: 06/12/17 21:48 Dose: 2 tab Solifenacin (Vesicare -) 5 mg PO DAILY [facility] Last Admin: 06/13/17 09:27 Dose: 5 mg Review of systems: Cardiovascular: As outlined above Pulmonary: No Cough or Sputum Production Gastrointestinal: No Nausea, Vomiting, Diarrhea, Constipation or Abdominal Discomfort Musculoskeletal: No Symptoms reported - Objective Vital Signs: Last Vital Signs Temp Pulse Resp BP Pulse Ox 98.6 F 63 18 110/49 91 L 06/13/17 05:43 06/13/17 05:43 06/13/17 05:43 06/13/17 05:43 06/12/17 20:31 Intake & Output 06/10/17 06/11/17 06/12/17 06/13/17 23:59 23:59 23:59 23:59 Intake Total 150 430 0085 1700 Output Total 250 Balance 769 853 2932 1700 Weight 200 lb 167 lb 6 oz Neck: Supple Negative JVD no bruit appreciated Cardiovascular: S1 and S2 Regular Rate and Rhythm No murmurs clicks or gallops Respiratory: Diminished Breath Sounds at the Bases Bilaterally Gastrointestinal: Soft Normal Bowel Sounds Ext: No Edema Labs: CBC, BMP 06/13/17 05:35 06/13/17 05:35 Hepatic Panel Total Bilirubin 1.1 mg/dL (0.2-1.0) H D 06/13/17 05:35 Direct Bilirubin 0.8 mg/dL (0.0-0.2) H 06/13/17 05:35 AST 101 U/L (15-37) H D 06/13/17 05:35 ALT 163 U/L (12-78) H D 06/13/17 05:35 Alkaline Phosphatase 136 U/L (45-117) H 06/13/17 05:35 Albumin 2.8 g/dl (3.4-5.0) L 06/13/17 05:35 Assessment/Plan ASSESSMENT: 1. Choledocholithiasis, with ascending cholanangitis post ERCP 2. Post acute renal insufficiency with hyperkalemia, resolved hyperkalemia 3. Coronary artery disease angina pectoris, stable EKG changes pseudo- normalization of anterior T-wave abnormality 4. Diastolic/Systolic left ventricular dysfunction with chronic class I [place] [employer] classification left ventricular congestive heart failure , compensated euvolemic to hypovolemic 5. HTN 6. Organic brain syndrome/dementia 7. Anemia PLAN: 1. Continue Coreg, hemodynamics permitting 2. Continue Norvasc, hemodynamics permitting 3. Ideally ACEI or ARB therapy to be re-initiated but would defer pending renal function stabilization 4. Continue to withhold Diuretic therapy including Lasix and Aldactone 5. Initiate Ecotrin therapy once no additional intervention is planned 6. Antibiotics as per the primary team Kristina Burrell M.D.
[2017-06-13] MEDS: LEVOFLOXACIN 500 MG IVPB 100 ML IVPB SCH (10:59)
--- NOTE | 2017-06-13 14:38 | PN ---
Progress Note, Physician History of Present Illness: Pt seen and examined at bedside. She denies shortness of breath. She is awake and appears comfortable. - Current Medication List Current Medications: Active Medications Acetaminophen (Tylenol -) 500 mg PO TID PRN PRN Reason: pain/fever Last Admin: 06/11/17 13:00 Dose: 500 mg Albuterol Sulfate (Ventolin 0.083% Nebulizer Soln -) 1 amp NEB QIDR [facility] Last Admin: 06/13/17 11:42 Dose: Not Given Carvedilol (Coreg -) 3.125 mg PO BID [facility] Last Admin: 06/13/17 09:27 Dose: 3.125 mg Cyanocobalamin (Vitamin B12 -) 1,000 mcg PO DAILY [facility] Last Admin: 06/13/17 09:27 Dose: 1,000 mcg Ergocalciferol (Drisdol -) 50,000 unit PO Johnston@10 [facility] Metronidazole (Flagyl 500mg Premixed Ivpb -) 100 mls @ 100 mls/hr IVPB Q8H-IV [facility] Last Admin: 06/13/17 09:27 Dose: 100 mls/hr Levofloxacin (Levaquin 500 Mg Premixed Ivpb -) 100 mls @ 100 mls/hr IVPB DAILY [facility] Last Admin: 06/13/17 10:59 Dose: 100 mls/hr Sodium Chloride (Normal Saline -) 1,000 mls @ 75 mls/hr IV ASDIR [facility] Last Admin: 06/13/17 09:27 Dose: 75 mls/hr Losartan Potassium (Cozaar -) 50 mg PO DAILY [facility] Non-Formulary Medication (Mirabegron [Myrbetriq]) 25 mg PO DAILY [facility] Senna (Senna -) 2 tab PO HS [facility] Last Admin: 06/12/17 21:48 Dose: 2 tab Solifenacin (Vesicare -) 5 mg PO DAILY [facility] Last Admin: 06/13/17 09:27 Dose: 5 mg - Objective Vital Signs: Vital Signs Temperature 98.5 F 06/13/17 10:00 Pulse Rate 72 06/13/17 10:00 Respiratory Rate 20 06/13/17 10:00 Blood Pressure 128/54 06/13/17 10:00 O2 Sat by Pulse Oximetry (%) 95 06/13/17 09:00 Constitutional: Yes: Calm Eyes: Yes: Conjunctiva Clear HENT: Yes: Atraumatic Neck: Yes: Supple Cardiovascular: Yes: S1, S2 Respiratory: Yes: CTA Bilaterally Gastrointestinal: Yes: Soft Genitourinary: Yes: WNL Musculoskeletal: Yes: WNL Edema: No Neurological: Yes: Oriented Labs: CBC, BMP 06/13/17 05:35 06/13/17 05:35 INR, PTT INR 0.96 (0.82-1.09) 06/09/17 17:25 Problem List - Problems (1) Hyperkalemia Code(s): E87.5 - HYPERKALEMIA (2) Renal insufficiency Code(s): N28.9 - DISORDER OF KIDNEY AND URETER, UNSPECIFIED (3) CHF exacerbation Code(s): I50.9 - HEART FAILURE, UNSPECIFIED Qualifiers: Congestive heart failure type: combined Qualified Code(s): I50.43 - Acute on chronic combined systolic (congestive) and diastolic (congestive) heart failure (4) Hypertension Code(s): I10 - ESSENTIAL (PRIMARY) HYPERTENSION Qualifiers: Hypertension type: essential hypertension Qualified Code(s): I10 - Essential (primary) hypertension Assessment/Plan Current Medications Generic Name Dose Route Start Last Admin Trade Name Freq PRN Reason Stop Dose Admin Acetaminophen 500 mg 06/09/17 22:14 06/11/17 13:00 Tylenol - PO 500 mg TID PRN Administration pain/fever Albuterol Sulfate 1 amp 06/10/17 00:00 06/13/17 11:42 Ventolin 0.083% Nebulizer Soln - NEB Not Given QIDR [facility] Carvedilol 3.125 mg 06/12/17 10:00 06/13/17 09:27 Coreg - PO 3.125 mg BID [facility] Administration Cyanocobalamin 1,000 mcg 06/10/17 10:00 06/13/17 09:27 Vitamin B12 - PO 1,000 mcg DAILY [facility] Administration Ergocalciferol 50,000 unit 06/14/17 10:00 Drisdol - PO Johnston@10 [facility] Metronidazole 100 mls @ 100 mls/hr 06/11/17 12:45 06/13/17 09:27 Flagyl 500mg Premixed Ivpb - IVPB 100 mls/hr Q8H-IV [facility] Administration Levofloxacin 100 mls @ 100 mls/hr 06/12/17 18:30 06/13/17 10:59 Levaquin 500 Mg Premixed Ivpb - IVPB 100 mls/hr DAILY [facility] Administration Sodium Chloride 1,000 mls @ 75 mls/hr 06/13/17 09:00 06/13/17 09:27 Normal Saline - IV 75 mls/hr ASDIR [facility] Administration Losartan Potassium 50 mg 06/14/17 10:00 Cozaar - PO DAILY [facility] Non-Formulary Medication 25 mg 06/10/17 10:00 Mirabegron [Myrbetriq] PO DAILY [facility] Senna 2 tab 06/10/17 22:00 06/12/17 21:48 Senna - PO 2 tab HS [facility] Administration Solifenacin 5 mg 06/10/17 10:00 06/13/17 09:27 Vesicare - PO 5 mg DAILY [facility] Administration Impression 1. RAYO 2. hyperkalemia 3. CAD 4. HTN 5. CHF 6. dementia Plan - pt is tolerating clears so far - change fluids to 1/2 ns and decrease rate. Pt was previously on two diuretics which are held - monitor volume status closely - repeat labs in am - will follow - GI input appreciated - diuretics on hold for now - wound not restart mobic or give nsaids - repeat labs in am Dr Holly
[2017-06-13] MEDS ORDERED: SODIUM CHLORIDE 0.45% 1,000 ML IV SCH (14:45)
--- NOTE | 2017-06-13 15:39 | PN ---
GI Progress Note Subjective: GASTROENTEROLOGY (FOR RAHUL) SPOKE TO PATIENT IN [place] SHE HAS NO PAIN NAUSEA OR VOMITING,SHE IS NOT HUNGRY HAS MILD ELEVATION OF LIPASE S/P SPHINCTEROTOMY - Objective Vital Signs: Vital Signs Temperature 98.5 F 06/13/17 10:00 Pulse Rate 72 06/13/17 10:00 Respiratory Rate 20 06/13/17 10:00 Blood Pressure 128/54 06/13/17 10:00 O2 Sat by Pulse Oximetry (%) 95 06/13/17 09:00 Constitutional: No Distress, Calm Eyes: Yes: Conjunctiva Clear HENT: Yes: Normocephalic Neck: Yes: Supple Cardiovascular: Yes: Regular Rate and Rhythm Respiratory: Yes: Rales Gastrointestinal Inspection: Yes: WNL ...Auscultate: Yes: Normoactive Bowel Sounds ...Palpate: Yes: Tenderness (RUQ) Extremities: Yes: WNL Labs: CBC, BMP 06/13/17 05:35 06/13/17 05:35 INR, PTT INR 0.96 (0.82-1.09) 06/09/17 17:25 Laboratory Tests 06/09/17 06/11/17 06/12/17 17:25 06:05 05:50 WBC RBC Hgb Hct MCV MCH MCHC RDW Plt Count MPV Neutrophils % Lymphocytes % Monocytes % Eosinophils % Basophils % INR 0.96 Sodium Potassium Chloride Carbon Dioxide Anion Gap BUN Creatinine Creat Clearance w eGFR Random Glucose Calcium Total Bilirubin 3.0 H D Direct Bilirubin AST 316 H D ALT 249 H D Alkaline Phosphatase 143 H D C-Reactive Protein Total Protein 6.1 L Albumin 2.9 L Lipase 130 06/13/17 06/13/17 06/13/17 05:35 05:35 05:35 WBC 11.1 H D RBC 3.10 L Hgb 10.3 L Hct 31.3 L MCV 100.9 H MCH 33.3 MCHC 33.0 RDW 14.0 Plt Count 147 MPV 9.5 Neutrophils % 89.3 H D Lymphocytes % 6.0 L D Monocytes % 4.2 Eosinophils % 0.3 D Basophils % 0.2 INR Sodium 142 Potassium 3.9 D Chloride 109 H Carbon Dioxide 27 Anion Gap 6 L BUN 23 H D Creatinine 0.9 Creat Clearance w eGFR 59.51 Random Glucose 93 Calcium 8.4 L Total Bilirubin 1.1 H D Direct Bilirubin 0.8 H AST 101 H D ALT 163 H D Alkaline Phosphatase 136 H C-Reactive Protein 13.8 H Total Protein Albumin Lipase 636 H Problem List - Problems (1) Cholangitis due to bile duct calculus with obstruction Assessment/Plan: S/P ERCP AND SPHINCTEROTOMY WITH STENT PLACEMENT MILD PANCREATITIS TODAY AFTER SPHINCTEROTOMY ALLOW CLEAR LIQUID,TREND LIPASE, MEDICAL TEAM HAS LOWERED FLUID DUE TO SOME FLUID OVER LOAD WILL NOT CHANGE THINGS AT THIS POINT WILL REEVALUATE IN AM Code(s): K80.31 - CALCULUS OF BILE DUCT W CHOLANGITIS, UNSP, WITH OBSTRUCTION (2) Choledocholithiasis with obstruction Code(s): K80.51 - CALCULUS OF BILE DUCT W/O CHOLANGITIS OR CHOLECYST W OBST (3) Cholelithiasis and acute cholecystitis with obstruction Code(s): K80.01 - CALCULUS OF GALLBLADDER W ACUTE CHOLECYSTITIS W OBSTRUCTION
--- NOTE | 2017-06-13 21:21 | PN ---
Physical Exam: SUBJECTIVE: Patient seen and examined by me at bedside. Patient reports her abdomen is much better today with minimal pain. Otherwise, patient denies fever , chills, shortness of breath, chest pain, palpitations, nausea, vomiting, dizziness. OBJECTIVE: Vital Signs Period Temp Pulse Resp BP Sys/Savage Pulse Ox Last 24 Hr 98.5 F-99.3 F 51-76 18-20 110-146/49-65 95-95 GENERAL: The patient is awake, alert, and fully oriented, in no acute distress. ENT: Moist mucous membranes LUNGS: Bibasilar crackles throughout lung bases HEART: RRR, Normal S1 and S2, no murmurs ABDOMEN: Tenderness upon deep palpation of RUQ with no rebounding or guarding EXTREMITIES: No peripheral edema. Laboratory Results - last 24 hr 06/12/17 06/13/17 06/13/17 22:17 05:35 05:35 WBC 11.1 H D RBC 3.10 L Hgb 10.3 L Hct 31.3 L MCV 100.9 H MCH 33.3 MCHC 33.0 RDW 14.0 Plt Count 147 MPV 9.5 Neutrophils % 89.3 H D Lymphocytes % 6.0 L D Monocytes % 4.2 Eosinophils % 0.3 D Basophils % 0.2 Sodium 142 Potassium 3.9 D Chloride 109 H Carbon Dioxide 27 Anion Gap 6 L BUN 23 H D Creatinine 0.9 Creat Clearance w eGFR 59.51 POC Glucometer 147 Random Glucose 93 Calcium 8.4 L Total Bilirubin 1.1 H D Direct Bilirubin 0.8 H AST 101 H D ALT 163 H D Alkaline Phosphatase 136 H C-Reactive Protein Total Protein 5.9 L Albumin 2.8 L Total Amylase Lipase 06/13/17 06/13/17 06/13/17 05:35 06:19 11:32 WBC RBC Hgb Hct MCV MCH MCHC RDW Plt Count MPV Neutrophils % Lymphocytes % Monocytes % Eosinophils % Basophils % Sodium Potassium Chloride Carbon Dioxide Anion Gap BUN Creatinine Creat Clearance w eGFR POC Glucometer 101 130 Random Glucose Calcium Total Bilirubin Direct Bilirubin AST ALT Alkaline Phosphatase C-Reactive Protein 13.8 H Total Protein Albumin Total Amylase 79 Lipase 636 H 06/13/17 16:36 WBC RBC Hgb Hct MCV MCH MCHC RDW Plt Count MPV Neutrophils % Lymphocytes % Monocytes % Eosinophils % Basophils % Sodium Potassium Chloride Carbon Dioxide Anion Gap BUN Creatinine Creat Clearance w eGFR POC Glucometer 100 Random Glucose Calcium Total Bilirubin Direct Bilirubin AST ALT Alkaline Phosphatase C-Reactive Protein Total Protein Albumin Total Amylase Lipase Active Medications Generic Name Dose Route Start Last Admin Trade Name Sonia PRN Reason Stop Dose Admin Acetaminophen 500 mg 06/09/17 22:14 06/11/17 13:00 Tylenol - PO 500 mg TID PRN Administration pain/fever Albuterol Sulfate 1 amp 06/10/17 00:00 06/13/17 18:07 Ventolin 0.083% Nebulizer Soln - NEB 1 amp QIDR [facility] Administration Carvedilol 3.125 mg 06/12/17 10:00 06/13/17 09:27 Coreg - PO 3.125 mg BID [facility] Administration Cyanocobalamin 1,000 mcg 06/10/17 10:00 06/13/17 09:27 Vitamin B12 - PO 1,000 mcg DAILY [facility] Administration Ergocalciferol 50,000 unit 06/14/17 10:00 Drisdol - PO Johnston@10 [facility] Metronidazole 100 mls @ 100 mls/hr 06/11/17 12:45 06/13/17 17:05 Flagyl 500mg Premixed Ivpb - IVPB 100 mls/hr Q8H-IV [facility] Administration Levofloxacin 100 mls @ 100 mls/hr 06/12/17 18:30 06/13/17 10:59 Levaquin 500 Mg Premixed Ivpb - IVPB 100 mls/hr DAILY [facility] Administration Sodium Chloride 1,000 mls @ 50 mls/hr 06/13/17 14:45 06/13/17 15:54 1/2 Normal Saline IV 06/14/17 14:39 50 mls/hr ASDIR [facility] Administration Losartan Potassium 50 mg 06/14/17 10:00 Cozaar - PO DAILY [facility] Non-Formulary Medication 25 mg 06/10/17 10:00 Mirabegron [Myrbetriq] PO DAILY [facility] Senna 2 tab 06/10/17 22:00 06/12/17 21:48 Senna - PO 2 tab HS [facility] Administration Solifenacin 5 mg 06/10/17 10:00 06/13/17 09:27 Vesicare - PO 5 mg DAILY [facility] Administration ASSESSMENT/PLAN: Patent is an 87 year old female with a PMHx of chronic systolic heart failure, HTN, dementia who presented for AMS and was found to have hyperkalemia and RAYO. Ascending Cholangitis secondary to Choledocholithiasis w/Obstruction -S/P urgent ERCP w/ removal of several stones with pus -LFT's improved today. Leukocytosis improved -Reduced IV fluids to 75cc/hr and started on 1/2 NS due to patient having crackles on lung examination -Continue Levaquin 500mg daily and Metronidazole 500mg Q8H -Cultures pending -May advance diet to clear liquids -Will need a cholecystectomy -GI and surgery consult appreciated Acute Cholecystitis -MRCP confirmed -Will continue with IV antibiotics and fluids -Will speak to Surgery about inpatient vs. elective surgery Elevated Lipase -Secondary to s/p ERCP -Will continue IV fluids -Will repeat Lipase in the morning RAYO- Resolved -Likely prerenal -Continue with IV fluids -Hold all nephrotoxic medications including lasix and aldactone -Continue to monitor BMP Systolic CHF -Continue to hold diuresis -Will continue Carvedilol 3.125mg -If creatinine remains stable, will resume ARB HTN -Continue Norvasc 10mg daily -Continue Coreg 3.125mg daily -Will resume Losartan 50mg daily tomorrow and d/c norvasc in the morning if creatinine stable F/E/N -IV 1/2 NS @75 mls/hr -Electrolytes wnl -Clear liquids Prophylaxis -Heparin S1 Q8H Disposition -Full code -Will need cholecystectomy Visit type - Emergency Visit Emergency Visit: Yes ED Registration Date: 06/09/17 Care time: The patient presented to the Emergency Department on the above date and was hospitalized for further evaluation of their emergent condition. - New Patient This patient is new to me today: Yes Date on this admission: 06/13/17 - Critical Care Critical Care patient: No
[2017-06-13] MEDS: SENNOSIDES 8.6MG TABLET (FP) PO SCH (22:10)
[2017-06-14] MEDS: METRONIDAZOLE 500 MG PREMIXED 100 ML IVPB SCH ×3 (03:17→17:51)
[2017-06-14] MEDS: ALBUTEROL SO4 0.083% IH SOL 2.5 MG/3 ML VIAL.NEB. NEB SCH ×4 (06:40→23:11)
[2017-06-14 07:30] LABS: MCH 33.3 pg (25.7-33.7); MCHC 33.3 g/dl (32.0-36.0); MEAN CELL VOLUME 99.9 fl (80-96); MEAN PLT VOLUME 9.8 fl (7.5-11.1); PLATELET COUNT 163 K/MM3 (134-434); RDW 13.9 % (11.6-15.6); WHITE BLOOD COUNT 10.1 K/mm3 (4.0-10.0)
[2017-06-14 07:46] LABS: ALBUMIN 2.8 g/dl (3.4-5.0); ANION GAP 8 (8-16); CALCIUM 8.5 mg/dL (8.5-10.1); CO2 24 mmol/L (21-32); GLUCOSE,RANDOM 92 mg/dL (74-106)
[2017-06-14 07:51] LABS: ALK PHOS 140 U/L (45-117); BILIRUBIN,TOTAL 0.8 mg/dL (0.2-1.0); CREATININE 0.7 mg/dL (0.55-1.02); SGOT/AST 41 U/L (15-37); SGPT/ALT 110 U/L (12-78); TOT PROT 6.1 g/dl (6.4-8.2)
[2017-06-14] MEDS: CARVEDILOL 3.125 MG TABLET (FP) PO SCH ×2 (09:47→22:38)
[2017-06-14] MEDS: LOSARTAN POTASSIUM 50 MG TABLET (FP) PO SCH (09:47)
[2017-06-14] MEDS: SOLIFENACIN SUCCINATE 5 MG TAB (FP) PO SCH (09:56)
[2017-06-14] MEDS: LEVOFLOXACIN 500 MG IVPB 100 ML IVPB SCH (09:56)
[2017-06-14] MEDS: CYANOCOBALAMIN 1,000 MCG TABLET (FP) PO SCH (09:56)
--- NOTE | 2017-06-14 09:57 | PN ---
Progress Note (short form) - Note Progress Note: saw pttoday and examined,abd obese,soft and wo tenderness s/p ercp for cholangitis pt clearly better. agree w dr serrano that given her med co morbidities and acut hopitaliztion problems she should undergo out pt eval for delayed cholecytectomy( acute floridalma at this time is assoc wmuch higher incidence of sugical morbidity and cbd injury). would cont w atb tx for 1wk, if pt is d/c bginning of this wk i will see her in office later in wk to eval for outpt surg. thank u
[2017-06-14] MEDS ORDERED: ERGOCALCIFEROL (VITAMIN D2) 50,000 UNIT CAPSULE (FP) PO SCH (10:00)
--- NOTE | 2017-06-14 11:13 | PN ---
Progress Note (short form) - Note Progress Note: Chief Complaint: Events noted, notes reviewed. Sitting in a wheelchair denies any chest pain or dyspnea, denies any abdominal discomfort History of Present Illness: Seen and examined on telemetry. Events noted, notes reviewed. Sitting in a wheelchair denies any chest pain or dyspnea, denies any abdominal discomfort To proceed with cholecystectomy later as outpatient Echocardiography reveled mild LV systolic dysfunction, mild to moderate MR, mild TR with RVSP between 30-40 mmHg - Current Medication List Current Medications Acetaminophen (Tylenol -) 500 mg PO TID PRN PRN Reason: pain/fever Last Admin: 06/11/17 13:00 Dose: 500 mg Albuterol Sulfate (Ventolin 0.083% Nebulizer Soln -) 1 amp NEB QIDR [facility] Last Admin: 06/14/17 06:40 Dose: Not Given Carvedilol (Coreg -) 3.125 mg PO BID [facility] Last Admin: 06/14/17 09:47 Dose: 3.125 mg Cyanocobalamin (Vitamin B12 -) 1,000 mcg PO DAILY [facility] Last Admin: 06/14/17 09:56 Dose: 1,000 mcg Ergocalciferol (Drisdol -) 50,000 unit PO Johnston@10 [facility] Last Admin: 06/14/17 09:54 Dose: 50,000 unit Metronidazole (Flagyl 500mg Premixed Ivpb -) 100 mls @ 100 mls/hr IVPB Q8H-IV [facility] Last Admin: 06/14/17 09:56 Dose: 100 mls/hr Levofloxacin (Levaquin 500 Mg Premixed Ivpb -) 100 mls @ 100 mls/hr IVPB DAILY [facility] Last Admin: 06/14/17 09:56 Dose: 100 mls/hr Sodium Chloride (1/2 Normal Saline) 1,000 mls @ 50 mls/hr IV ASDIR [facility] Stop: 06/14/17 14:39 Last Admin: 06/13/17 15:54 Dose: 50 mls/hr Losartan Potassium (Cozaar -) 50 mg PO DAILY [facility] Last Admin: 06/14/17 09:47 Dose: 50 mg Non-Formulary Medication (Mirabegron [Myrbetriq]) 25 mg PO DAILY [facility] Senna (Senna -) 2 tab PO HS [facility] Last Admin: 06/13/17 22:10 Dose: 2 tab Solifenacin (Vesicare -) 5 mg PO DAILY [facility] Last Admin: 06/14/17 09:56 Dose: 5 mg Review of systems: Cardiovascular: As outlined above Pulmonary: No Cough or Sputum Production Gastrointestinal: No Nausea, Vomiting, Diarrhea, Constipation or Abdominal Discomfort Musculoskeletal: No Symptoms reported - Objective Vital Signs: Last Vital Signs Temp Pulse Resp BP Pulse Ox 98.4 F 54 L 18 154/58 95 06/14/17 09:40 06/14/17 09:40 06/14/17 09:40 06/14/17 09:40 06/13/17 20:22 Intake & Output 06/11/17 06/12/17 06/13/17 06/14/17 23:59 23:59 23:59 23:59 Intake Total 350 1770 2320 600 Balance 350 1770 2320 600 Weight 167 lb 6 oz Neck: Supple Negative JVD no bruit appreciated Cardiovascular: S1 and S2 Regular Rate and Rhythm No murmurs clicks or gallops Respiratory: Diminished Breath Sounds at the Bases Bilaterally Gastrointestinal: Soft Normal Bowel Sounds Ext: No Edema Labs: CBC, BMP 06/14/17 05:35 06/14/17 05:35 Assessment/Plan ASSESSMENT: 1. Choledocholithiasis, with ascending cholanangitis post ERCP for future cholecystectomy 2. Post acute renal insufficiency with hyperkalemia, resolved hyperkalemia 3. Coronary artery disease angina pectoris, stable EKG changes pseudo- normalization of anterior T-wave abnormality 4. Diastolic/Systolic left ventricular dysfunction with chronic class I [place] [employer] classification left ventricular congestive heart failure , compensated/euvolemic 5. HTN 6. Organic brain syndrome/dementia 7. Anemia PLAN: 1. Continue Coreg, hemodynamics permitting 2. Continue Norvasc, hemodynamics permitting 3. Initiate Diovan therapy with close monitoring of renal function 4. Continue to withhold Diuretic therapy including Lasix and Aldactone 5. Initiate Ecotrin therapy pending scheduling for cholecystectomy 6. There are no absolute contraindications in proceeding with the above planned procedure since there is no clinical evidence of ACS and/or de-compensated congestive heart failure and/or malignant ventricular arrhythmia 7. Can be transferred to floor care from cardiovascular point of view Kristina Burrell M.D.
[2017-06-14 12:37] LABS: PLATELET ESTIMATE ADEQUATE (NORMAL)
--- NOTE | 2017-06-14 13:10 | PN ---
GI Progress Note Subjective: GASTROENTEROLOGY SPOKE WITH PATIENT IN [place]: FEELS BETTER TODAY, TAKING CLEAR LIQUID, NO ABDOMINAL PAIN, NO FEVER - Objective Vital Signs: Vital Signs Temperature 98.4 F 06/14/17 09:40 Pulse Rate 54 L 06/14/17 09:40 Respiratory Rate 18 06/14/17 09:40 Blood Pressure 154/58 06/14/17 09:40 O2 Sat by Pulse Oximetry (%) 95 06/14/17 09:00 Constitutional: Obese Eyes: Yes: Conjunctiva Clear HENT: Yes: Normocephalic Neck: Yes: Supple Cardiovascular: Yes: Regular Rate and Rhythm Respiratory: Yes: Regular Gastrointestinal Inspection: Yes: WNL ...Auscultate: Yes: Normoactive Bowel Sounds ...Palpate: Yes: Soft Extremities: Yes: WNL Labs: CBC, BMP 06/14/17 05:35 06/14/17 05:35 INR, PTT INR 0.96 (0.82-1.09) 06/09/17 17:25 Laboratory Tests 06/13/17 06/14/17 06/14/17 05:35 05:35 05:35 WBC 10.1 H RBC 3.25 L Hgb 10.8 Hct 32.5 MCV 99.9 H MCH 33.3 MCHC 33.3 RDW 13.9 Plt Count 163 MPV 9.8 Neutrophils % 88.0 H Lymphocytes % 10.0 D Monocytes % 1.0 L Eosinophils % 1.0 D Sodium 142 Potassium 3.8 Chloride 110 H Carbon Dioxide 24 Anion Gap 8 BUN 15 D Creatinine 0.7 D Creat Clearance w eGFR > 60 Random Glucose 92 Calcium 8.5 Total Bilirubin 0.8 D AST 41 H D ALT 110 H D Alkaline Phosphatase 140 H Lipase 636 H 699 H Problem List - Problems (1) Cholangitis due to bile duct calculus with obstruction Assessment/Plan: IMPROVING LIPASE STABLE, SLIGHTLY INCREASED BUT NO PAIN CHANGE FLUID TO LR, INCREASE RATE, WATCH FOR FAILURE KEEP ON CLEARS TREND LIPASE Code(s): K80.31 - CALCULUS OF BILE DUCT W CHOLANGITIS, UNSP, WITH OBSTRUCTION (2) Choledocholithiasis with obstruction Code(s): K80.51 - CALCULUS OF BILE DUCT W/O CHOLANGITIS OR CHOLECYST W OBST (3) Cholelithiasis and acute cholecystitis with obstruction Code(s): K80.01 - CALCULUS OF GALLBLADDER W ACUTE CHOLECYSTITIS W OBSTRUCTION
[2017-06-14] MEDS ORDERED: LACTATED RINGERS SOLUTION 1,000 ML IV SCH (13:15)
--- NOTE | 2017-06-14 17:09 | PN ---
Progress Note, Physician History of Present Illness: Pt seen and examined at bedside. She is awake and alert. She denies abdominal pain. - Current Medication List Current Medications: Active Medications Acetaminophen (Tylenol -) 500 mg PO TID PRN PRN Reason: pain/fever Last Admin: 06/11/17 13:00 Dose: 500 mg Albuterol Sulfate (Ventolin 0.083% Nebulizer Soln -) 1 amp NEB QIDR [facility] Last Admin: 06/14/17 12:08 Dose: Not Given Carvedilol (Coreg -) 3.125 mg PO BID [facility] Last Admin: 06/14/17 09:47 Dose: 3.125 mg Cyanocobalamin (Vitamin B12 -) 1,000 mcg PO DAILY [facility] Last Admin: 06/14/17 09:56 Dose: 1,000 mcg Ergocalciferol (Drisdol -) 50,000 unit PO Johnston@10 [facility] Last Admin: 06/14/17 09:54 Dose: 50,000 unit Metronidazole (Flagyl 500mg Premixed Ivpb -) 100 mls @ 100 mls/hr IVPB Q8H-IV [facility] Last Admin: 06/14/17 09:56 Dose: 100 mls/hr Levofloxacin (Levaquin 500 Mg Premixed Ivpb -) 100 mls @ 100 mls/hr IVPB DAILY [facility] Last Admin: 06/14/17 09:56 Dose: 100 mls/hr Lactated Ringer's (Lactated Ringers Solution) 1,000 mls @ 75 mls/hr IV ASDIR [facility] Stop: 06/15/17 13:14 Last Admin: 06/14/17 16:24 Dose: 75 mls/hr Losartan Potassium (Cozaar -) 50 mg PO DAILY [facility] Last Admin: 06/14/17 09:47 Dose: 50 mg Non-Formulary Medication (Mirabegron [Myrbetriq]) 25 mg PO DAILY [facility] Senna (Senna -) 2 tab PO HS [facility] Last Admin: 06/13/17 22:10 Dose: 2 tab Solifenacin (Vesicare -) 5 mg PO DAILY [facility] Last Admin: 06/14/17 09:56 Dose: 5 mg - Objective Vital Signs: Vital Signs Temperature 98.4 F 06/14/17 09:40 Pulse Rate 54 L 06/14/17 09:40 Respiratory Rate 18 06/14/17 09:40 Blood Pressure 154/58 06/14/17 09:40 O2 Sat by Pulse Oximetry (%) 94 L 06/14/17 13:30 Constitutional: Yes: Calm Eyes: Yes: Conjunctiva Clear HENT: Yes: Atraumatic Neck: Yes: Supple Cardiovascular: Yes: S1, S2 Respiratory: Yes: CTA Bilaterally Gastrointestinal: Yes: Normal Bowel Sounds, Soft, Abdomen, Obese Genitourinary: Yes: WNL Musculoskeletal: Yes: WNL Edema: No Neurological: Yes: Oriented Psychiatric: Yes: Oriented Labs: CBC, BMP 06/14/17 05:35 06/14/17 05:35 INR, PTT INR 0.96 (0.82-1.09) 06/09/17 17:25 Problem List - Problems (1) Hyperkalemia Code(s): E87.5 - HYPERKALEMIA (2) Renal insufficiency Code(s): N28.9 - DISORDER OF KIDNEY AND URETER, UNSPECIFIED (3) CHF exacerbation Code(s): I50.9 - HEART FAILURE, UNSPECIFIED Qualifiers: Congestive heart failure type: combined Qualified Code(s): I50.43 - Acute on chronic combined systolic (congestive) and diastolic (congestive) heart failure (4) Hypertension Code(s): I10 - ESSENTIAL (PRIMARY) HYPERTENSION Qualifiers: Hypertension type: essential hypertension Qualified Code(s): I10 - Essential (primary) hypertension Assessment/Plan Current Medications Generic Name Dose Route Start Last Admin Trade Name Freq PRN Reason Stop Dose Admin Acetaminophen 500 mg 06/09/17 22:14 06/11/17 13:00 Tylenol - PO 500 mg TID PRN Administration pain/fever Albuterol Sulfate 1 amp 06/10/17 00:00 06/14/17 12:08 Ventolin 0.083% Nebulizer Soln - NEB Not Given QIDR [facility] Carvedilol 3.125 mg 06/12/17 10:00 06/14/17 09:47 Coreg - PO 3.125 mg BID [facility] Administration Cyanocobalamin 1,000 mcg 06/10/17 10:00 06/14/17 09:56 Vitamin B12 - PO 1,000 mcg DAILY [facility] Administration Ergocalciferol 50,000 unit 06/14/17 10:00 06/14/17 09:54 Drisdol - PO 50,000 unit Johnston@10 [facility] Administration Metronidazole 100 mls @ 100 mls/hr 06/11/17 12:45 06/14/17 09:56 Flagyl 500mg Premixed Ivpb - IVPB 100 mls/hr Q8H-IV [facility] Administration Levofloxacin 100 mls @ 100 mls/hr 06/12/17 18:30 06/14/17 09:56 Levaquin 500 Mg Premixed Ivpb - IVPB 100 mls/hr DAILY [facility] Administration Lactated Ringer's 1,000 mls @ 75 mls/hr 06/14/17 13:15 06/14/17 16:24 Lactated Ringers Solution IV 06/15/17 13:14 75 mls/hr ASDIR [facility] Administration Losartan Potassium 50 mg 06/14/17 10:00 06/14/17 09:47 Cozaar - PO 50 mg DAILY [facility] Administration Non-Formulary Medication 25 mg 06/10/17 10:00 Mirabegron [Myrbetriq] PO DAILY [facility] Senna 2 tab 06/10/17 22:00 06/13/17 22:10 Senna - PO 2 tab HS [facility] Administration Solifenacin 5 mg 06/10/17 10:00 06/14/17 09:56 Vesicare - PO 5 mg DAILY [facility] Administration Impression 1. RAYO 2. hyperkalemia 3. CAD 4. HTN 5. CHF 6. dementia Plan - renal function is stable - GI input appreciated - fluid per GI, monitor for signs of failure, discussed with nurse - repeat labs in am - diuretics on hold for now - wound not restart mobic or give nsaids - repeat labs in am Dr Holly
--- NOTE | 2017-06-14 17:13 | PN ---
Progress Note (short form) - Note Progress Note: Subjective: no abd pain, has no fever or chills, no events over night Objective: Vital Signs: Last Vital Signs Temp Pulse Resp BP Pulse Ox 98.4 F 54 L 18 154/58 94 L 06/14/17 09:40 06/14/17 09:40 06/14/17 09:40 06/14/17 09:40 06/14/17 13:30 Laboratory Results - last 24 hr 06/13/17 06/14/17 06/14/17 05:35 05:35 05:35 WBC 10.1 H RBC 3.25 L Hgb 10.8 Hct 32.5 MCV 99.9 H MCH 33.3 MCHC 33.3 RDW 13.9 Plt Count 163 MPV 9.8 Neutrophils % 88.0 H Lymphocytes % 10.0 D Monocytes % 1.0 L Eosinophils % 1.0 D Differential Comment Manual diff done Platelet Estimate Adequate Sodium 142 Potassium 3.8 Chloride 110 H Carbon Dioxide 24 Anion Gap 8 BUN 15 D Creatinine 0.7 D Creat Clearance w eGFR > 60 POC Glucometer Random Glucose 92 Calcium 8.5 Total Bilirubin 0.8 D AST 41 H D ALT 110 H D Alkaline Phosphatase 140 H Total Protein 6.1 L Albumin 2.8 L Lipase 699 H Hepatitis C Antibody 0.1 06/14/17 11:51 WBC RBC Hgb Hct MCV MCH MCHC RDW Plt Count MPV Neutrophils % Lymphocytes % Monocytes % Eosinophils % Differential Comment Platelet Estimate Sodium Potassium Chloride Carbon Dioxide Anion Gap BUN Creatinine Creat Clearance w eGFR POC Glucometer 135 Random Glucose Calcium Total Bilirubin AST ALT Alkaline Phosphatase Total Protein Albumin Lipase Hepatitis C Antibody Physical Exam: NAD , awake and cooperative CV: RRR, No JVD Lungs: CTAB today Ext : no edema Abd :soft, no TTP . liver is not percussed or palpated . ASSESSMENT AND PLAN: 87 y/o lady with h/o chronic systolic heart failure , DM , HTN, and dementia who presented with AMS , was found to have hyperkalemia and RAYO. 1- Choledocolithiasis with Ascending cholangitis: s/p urgent ERCP 06/12 CBd stones abd pain has resolved, although Lipase has increased - IVF at 75 cc /hr of LR - cont IV Abx - CBC and LFTS for tomorrow - follow repat blood cx - d/w Dr. Lowery in length, regarding CCY. Recs to have it in 2 weeks to decrease morbidity and mortality 2- RAYO : prerenal in etiolgoy, resolved with IVF - cont to hold lasix and aldactone - avoid NSAIDs 3- H/o CHF : No acute decompensation - cont to hold diuresis - cont carvedolol - resume ARB 4- HTN: - ARB . dc norvasc - Coreg Dispo : HLOC Visit type - Emergency Visit Emergency Visit: Yes ED Registration Date: 06/09/17 Care time: The patient presented to the Emergency Department on the above date and was hospitalized for further evaluation of their emergent condition. - New Patient This patient is new to me today: No - Critical Care Critical Care patient: No
[2017-06-14] MEDS: SENNOSIDES 8.6MG TABLET (FP) PO SCH (22:38)
[2017-06-15] MEDS: METRONIDAZOLE 500 MG PREMIXED 100 ML IVPB SCH ×3 (01:40→16:59)
[2017-06-15] MEDS: ALBUTEROL SO4 0.083% IH SOL 2.5 MG/3 ML VIAL.NEB. NEB SCH ×4 (06:11→23:04)
[2017-06-15 08:01] LABS: BASOPHIL 0.4 % (0-2.0); EOSINOPHIL 1.7 % (0-4.5); MCH 33.5 pg (25.7-33.7); MCHC 33.8 g/dl (32.0-36.0); MEAN CELL VOLUME 99.2 fl (80-96); MEAN PLT VOLUME 9.3 fl (7.5-11.1); NEUTROPHILS 69.1 % (42.8-82.8); PLATELET COUNT 159 K/MM3 (134-434); RDW 13.5 % (11.6-15.6)
[2017-06-15 08:12] LABS: ALBUMIN 2.5 g/dl (3.4-5.0); CALCIUM 8.2 mg/dL (8.5-10.1)
[2017-06-15 08:17] LABS: ALK PHOS 119 U/L (45-117); ANION GAP 7 (8-16); BILIRUBIN,DIRECT 0.3 mg/dL (0.0-0.2); BILIRUBIN,TOTAL 0.6 mg/dL (0.2-1.0); CO2 26 mmol/L (21-32); CREATININE 0.6 mg/dL (0.55-1.02); GLUCOSE,RANDOM 81 mg/dL (74-106); SGOT/AST 33 U/L (15-37); SGPT/ALT 72 U/L (12-78); TOT PROT 5.1 g/dl (6.4-8.2)
[2017-06-15] MEDS ORDERED: PT OWN MED DRAWER 7, Y5N ONE (08:43)
--- NOTE | 2017-06-15 09:46 | PN ---
Progress Note, Physician History of Present Illness: Tolerating clear liquids without abd pain, nausea, emesis, fevers or chills. - Current Medication List Current Medications: Active Medications Acetaminophen (Tylenol -) 500 mg PO TID PRN PRN Reason: pain/fever Last Admin: 06/11/17 13:00 Dose: 500 mg Albuterol Sulfate (Ventolin 0.083% Nebulizer Soln -) 1 amp NEB QIDR [facility] Last Admin: 06/15/17 06:11 Dose: 1 amp Carvedilol (Coreg -) 3.125 mg PO BID [facility] Last Admin: 06/14/17 22:38 Dose: 3.125 mg Cyanocobalamin (Vitamin B12 -) 1,000 mcg PO DAILY [facility] Last Admin: 06/14/17 09:56 Dose: 1,000 mcg Ergocalciferol (Drisdol -) 50,000 unit PO Johnston@10 [facility] Last Admin: 06/14/17 09:54 Dose: 50,000 unit Metronidazole (Flagyl 500mg Premixed Ivpb -) 100 mls @ 100 mls/hr IVPB Q8H-IV [facility] Last Admin: 06/15/17 01:40 Dose: 100 mls/hr Levofloxacin (Levaquin 500 Mg Premixed Ivpb -) 100 mls @ 100 mls/hr IVPB DAILY [facility] Last Admin: 06/14/17 09:56 Dose: 100 mls/hr Lactated Ringer's (Lactated Ringers Solution) 1,000 mls @ 75 mls/hr IV ASDIR [facility] Stop: 06/15/17 13:14 Last Admin: 06/14/17 16:24 Dose: 75 mls/hr Losartan Potassium (Cozaar -) 50 mg PO DAILY [facility] Last Admin: 06/14/17 09:47 Dose: 50 mg Non-Formulary Medication (Mirabegron [Myrbetriq]) 25 mg PO DAILY [facility] Senna (Senna -) 2 tab PO HS [facility] Last Admin: 06/14/17 22:38 Dose: 2 tab Solifenacin (Vesicare -) 5 mg PO DAILY [facility] Last Admin: 06/14/17 09:56 Dose: 5 mg - Objective Vital Signs: Vital Signs Temperature 98.7 F 06/15/17 07:31 Pulse Rate 52 L 06/15/17 07:31 Respiratory Rate 18 06/15/17 07:31 Blood Pressure 124/53 06/15/17 07:31 O2 Sat by Pulse Oximetry (%) 94 L 06/14/17 13:30 Constitutional: Yes: No Distress, Calm Neck: Yes: Supple Cardiovascular: Yes: Regular Rate and Rhythm Respiratory: Yes: Regular, Diminished Gastrointestinal: Yes: Soft, Hypoactive Bowel Sounds Edema: No Labs: CBC, BMP 06/15/17 06:00 06/15/17 06:00 INR, PTT INR 0.96 (0.82-1.09) 06/09/17 17:25 Problem List - Problems (1) Cholangitis due to bile duct calculus with obstruction Code(s): K80.31 - CALCULUS OF BILE DUCT W CHOLANGITIS, UNSP, WITH OBSTRUCTION (2) Hypertension Code(s): I10 - ESSENTIAL (PRIMARY) HYPERTENSION Qualifiers: Hypertension type: essential hypertension Qualified Code(s): I10 - Essential (primary) hypertension (3) Choledocholithiasis with obstruction Code(s): K80.51 - CALCULUS OF BILE DUCT W/O CHOLANGITIS OR CHOLECYST W OBST Qualifiers: Cholecystitis presence: with cholecystitis Cholecystitis acuity: acute and chronic Qualified Code(s): K80.47 - Calculus of bile duct with acute and chronic cholecystitis with obstruction (4) Cholelithiasis and acute cholecystitis with obstruction Code(s): K80.01 - CALCULUS OF GALLBLADDER W ACUTE CHOLECYSTITIS W OBSTRUCTION Assessment/Plan 1. Choledocholithiasis, with ascending cholanangitis post ERCP for future cholecystectomy as outpatient 2. Post acute renal insufficiency with hyperkalemia, resolved hyperkalemia 3. Coronary artery disease angina pectoris, stable EKG changes pseudo- normalization of anterior T-wave abnormality 4. Diastolic/Systolic left ventricular dysfunction with chronic class I [place] [employer] classification left ventricular congestive heart failure , compensated/euvolemic 5. HTN 6. Organic brain syndrome/dementia 7. Anemia PLAN: 1. Continue Coreg 3.125 bid, hemodynamics permitting 2. Continue losartan 50 qd with close monitoring of renal function 3. Continue to withhold Diuretic therapy including Lasix and Aldactone 4. Initiate Ecotrin therapy pending scheduling for outpatient cholecystectomy 5. There are no absolute contraindications in proceeding with the above planned procedure since there is no clinical evidence of ACS and/or de-compensated congestive heart failure and/or malignant ventricular arrhythmia 6. Complete abx course, advance diet per GI recs, DVT prophylaxis
[2017-06-15] MEDS: CARVEDILOL 3.125 MG TABLET (FP) PO SCH ×2 (09:51→22:36)
[2017-06-15] MEDS: LEVOFLOXACIN 500 MG IVPB 100 ML IVPB SCH (09:51)
[2017-06-15] MEDS: LOSARTAN POTASSIUM 50 MG TABLET (FP) PO SCH (09:51)
[2017-06-15] MEDS: CYANOCOBALAMIN 1,000 MCG TABLET (FP) PO SCH (09:51)
[2017-06-15] MEDS: SOLIFENACIN SUCCINATE 5 MG TAB (FP) PO SCH (09:52)
--- NOTE | 2017-06-15 11:18 | PN ---
Progress Note, Physician Chief Complaint: 24hour Events: no acute events O/N Tolerating clear liquids. No n/v, fever, chills, or abdominal pain this AM. No BM in 4 days, no flatus. - Current Medication List Current Medications: Active Medications Acetaminophen (Tylenol -) 500 mg PO TID PRN PRN Reason: pain/fever Last Admin: 06/11/17 13:00 Dose: 500 mg Albuterol Sulfate (Ventolin 0.083% Nebulizer Soln -) [address] [facility] Last Admin: 06/15/17 06:11 Dose: 1 amp Aspirin (Asa -) [address] [facility] Carvedilol (Coreg -) 3.[address] [facility] Last Admin: 06/15/17 09:51 Dose: 3.125 mg Cyanocobalamin (Vitamin B12 -) 1,[address] [facility] Last Admin: 06/15/17 09:51 Dose: 1,000 mcg Enoxaparin Sodium (Lovenox -) [address] [facility] Ergocalciferol (Drisdol -) 50,000 unit PO Johnston@10 [facility] Last Admin: 06/14/17 09:54 Dose: 50,000 unit Metronidazole (Flagyl 500mg Premixed Ivpb -) 100 mls @ 100 mls/hr IVPB Q8H-IV [facility] Last Admin: 06/15/17 09:51 Dose: 100 mls/hr Levofloxacin (Levaquin 500 Mg Premixed Ivpb -) 100 mls @ 100 mls/hr IVPB DAILY [facility] Last Admin: 06/15/17 09:51 Dose: 100 mls/hr Lactated Ringer's (Lactated Ringers Solution) 1,000 mls @ 75 mls/hr IV ASDIR [facility] Stop: 06/15/17 13:14 Last Admin: 06/14/17 16:24 Dose: 75 mls/hr Losartan Potassium (Cozaar -) [address] [facility] Last Admin: 06/15/17 09:51 Dose: 50 mg Non-Formulary Medication (Mirabegron [Myrbetriq]) [address] [facility] Senna (Senna -) [address] [facility] Last Admin: 06/14/17 22:38 Dose: 2 tab Solifenacin (Vesicare -) [address] [facility] Last Admin: 06/15/17 09:52 Dose: 5 mg - Objective Vital Signs: Vital Signs Temperature 98.7 F 06/15/17 07:31 Pulse Rate 52 L 06/15/17 07:31 Respiratory Rate 18 06/15/17 07:31 Blood Pressure 124/53 06/15/17 07:31 O2 Sat by Pulse Oximetry (%) 94 L 06/14/17 13:30 Constitutional: Yes: No Distress, Calm Eyes: Yes: Conjunctiva Clear Cardiovascular: Yes: Regular Rate and Rhythm. No: Gallop, Murmur Respiratory: Yes: CTA Bilaterally Gastrointestinal: Yes: Normal Bowel Sounds, Soft, Abdomen, Obese, Tenderness ( RUQ tenderness to palpation, +Roa's sign) Edema: No Peripheral Pulses WNL: Yes Integumentary: Yes: Other (ecchymosis LLQ abdomen) Labs: CBC, BMP 06/15/17 06:00 06/15/17 06:00 Hepatic Panel Total Bilirubin 0.6 mg/dL (0.2-1.0) D 06/15/17 06:00 Direct Bilirubin 0.3 mg/dL (0.0-0.2) H D 06/15/17 06:00 AST 33 U/L (15-37) 06/15/17 06:00 ALT 72 U/L (12-78) D 06/15/17 06:00 Alkaline Phosphatase 119 U/L (45-117) H 06/15/17 06:00 Albumin 2.5 g/dl (3.4-5.0) L 06/15/17 06:00 INR 0.96 (0.82-1.09) 06/09/17 17:25 06/14/17 06/15/17 05:35 06:00 Lipase 699 H 636 H Impression/Plan Impression/Plan: 87yo woman with systolic HF, DM, HTN, dementia who has choledocholithiasis with cholangitis s/p sphicterotomy and stent (POD3) who is doing well. Lipase is gradually downtrending without current clinical e/o pancreatitis. Vital signs are stable. #choledocholithiasis with cholangitis -Continue Levofloxacin 500mg IVPB daily and Metronidazole 500mg IVPB Q8h -Continue Clear diet #constipation: no BM in 4 days -Replace Senna with Miralax d/w Dr. Cara Diehl MD PGY-1 Visit type - Emergency Visit Emergency Visit: No - New Patient This patient is new to me today: Yes Date on this admission: 06/15/17 - Critical Care Critical Care patient: No
[2017-06-15] MEDS: ASPIRIN 81 MG CHEWABLE TABLETS PO SCH (11:59)
[2017-06-15] MEDS: ENOXAPARIN NA (PORCINE) 40 MG/0.4 ML DISP.SYRIN SQ SCH (11:59)
--- NOTE | 2017-06-15 13:36 | PN ---
Teaching Attending Note Name of Resident: Allison Diehl ATTENDING PHYSICIAN STATEMENT I saw and evaluated the patient. I reviewed the resident's note and discussed the case with the resident. I agree / updated the resident's findings and plan as documented. SUBJECTIVE: S/P ERCP 06/12 with stone extraction / stent placement Denies abdominal pain OBJECTIVE: On exam: T: 98.6 rectal Anicteric Hrt RRR Lungs: CTA Abd: non distended, +BS, soft, no epigastric pain, + marked RUQ tenderness to light/deep palpation, + canseco's sign JOCELYNN: no external lesion, no masses, some formed stool in proximal rectum, light brown. No blood/melena On labs: WBC: 6 06/15/17 06:00 Total Bilirubin 0.6 D Direct Bilirubin 0.3 H D AST 33 ALT 72 D Alkaline Phosphatase 119 H Total Protein 5.1 L Albumin 2.5 L Lipase 636 H ASSESSMENT 1. Choledocholithiasis s/p ERCP with stone extraction / stent placement 2. Evidence of concomitant cholectystitis on clinically and on imaging 3. Elevated Lipase: No clinical evidence of pancreatitis 4. Constipation PLAN: 1. Continuing IV Abx 2. D/W primary team. Recall surgery to reevaluate timing of cholecystectomy given clinical findings noted on today's exam 3. Continue clears for now 4. On senna, can change to MiraLAX 17g BID
--- NOTE | 2017-06-15 14:04 | PN ---
Progress Note (short form) - Note Progress Note: ID consult dictated imp/reccd 87 year old female with DM admitted for dehydration, developed N/V abnl lfts leading to w/u of biliary system she was found to have cholycystitis and choledocholithiasis she is s/p ercp on 06/12, with stent and sphincterotomy she is doing well negative blood cultures no fevers tolerating clears WBC and AST/ALT are normal today, alk phos is trending down as well she does have intermittent RUQ pain and is being evaluated by GI would continue iv levaquin and flagyl day #3 would consider switch to po levaquin and flagyl for one week when cleared for discharge by GI and surgery she will need close outpt f/u if surgery is postponed to a later date Problem List - Problems (1) Choledocholithiasis with obstruction Code(s): K80.51 - CALCULUS OF BILE DUCT W/O CHOLANGITIS OR CHOLECYST W OBST Qualifiers: Cholecystitis presence: with cholecystitis Cholecystitis acuity: acute and chronic Qualified Code(s): K80.47 - Calculus of bile duct with acute and chronic cholecystitis with obstruction (2) Cholelithiasis and acute cholecystitis with obstruction Code(s): K80.01 - CALCULUS OF GALLBLADDER W ACUTE CHOLECYSTITIS W OBSTRUCTION
[2017-06-15 14:12] LABS: HEP B SURFACE AB Non Reactive (.)
[2017-06-15] MEDS: POLYETHYLENE GLYCOL 3350 119 GM BTL PO SCH ×2 (15:17→22:36)
--- NOTE | 2017-06-15 15:17 | PN ---
Progress Note, Physician History of Present Illness: Pt seen and examined at bedside. She is awake and alert. She has some abdominal discomfort. - Current Medication List Current Medications: Active Medications Acetaminophen (Tylenol -) 500 mg PO TID PRN PRN Reason: pain/fever Last Admin: 06/11/17 13:00 Dose: 500 mg Albuterol Sulfate (Ventolin 0.083% Nebulizer Soln -) 1 amp NEB QIDR [facility] Last Admin: 06/15/17 11:59 Dose: 1 amp Aspirin (Asa -) 81 mg PO DAILY [facility] Last Admin: 06/15/17 11:59 Dose: 81 mg Carvedilol (Coreg -) 3.125 mg PO BID [facility] Last Admin: 06/15/17 09:51 Dose: 3.125 mg Cyanocobalamin (Vitamin B12 -) 1,000 mcg PO DAILY [facility] Last Admin: 06/15/17 09:51 Dose: 1,000 mcg Enoxaparin Sodium (Lovenox -) 40 mg SQ DAILY [facility] Last Admin: 06/15/17 11:59 Dose: 40 mg Ergocalciferol (Drisdol -) 50,000 unit PO Johnston@10 [facility] Last Admin: 06/14/17 09:54 Dose: 50,000 unit Metronidazole (Flagyl 500mg Premixed Ivpb -) 100 mls @ 100 mls/hr IVPB Q8H-IV [facility] Last Admin: 06/15/17 09:51 Dose: 100 mls/hr Levofloxacin (Levaquin 500 Mg Premixed Ivpb -) 100 mls @ 100 mls/hr IVPB DAILY [facility] Last Admin: 06/15/17 09:51 Dose: 100 mls/hr Losartan Potassium (Cozaar -) 50 mg PO DAILY [facility] Last Admin: 06/15/17 09:51 Dose: 50 mg Non-Formulary Medication (Mirabegron [Myrbetriq]) 25 mg PO DAILY [facility] Polyethylene Glycol (Miralax (For Daily Use) -) 17 gm PO BID [facility] Solifenacin (Vesicare -) 5 mg PO DAILY [facility] Last Admin: 06/15/17 09:52 Dose: 5 mg - Objective Vital Signs: Vital Signs Temperature 98.8 F 06/15/17 14:15 Pulse Rate 46 L 06/15/17 14:15 Respiratory Rate 18 06/15/17 14:15 Blood Pressure 145/65 06/15/17 14:15 O2 Sat by Pulse Oximetry (%) 94 L 06/14/17 13:30 Constitutional: Yes: Calm Eyes: Yes: Conjunctiva Clear HENT: Yes: Atraumatic Neck: Yes: Supple Cardiovascular: Yes: S1, S2 Respiratory: Yes: CTA Bilaterally Gastrointestinal: Yes: Tenderness, Epigastrium Genitourinary: Yes: WNL Edema: No Neurological: Yes: Oriented Psychiatric: Yes: Oriented Labs: CBC, BMP 06/15/17 06:00 06/15/17 06:00 INR, PTT INR 0.96 (0.82-1.09) 06/09/17 17:25 Problem List - Problems (1) Hyperkalemia Code(s): E87.5 - HYPERKALEMIA (2) Renal insufficiency Code(s): N28.9 - DISORDER OF KIDNEY AND URETER, UNSPECIFIED (3) CHF exacerbation Code(s): I50.9 - HEART FAILURE, UNSPECIFIED Qualifiers: Congestive heart failure type: combined Qualified Code(s): I50.43 - Acute on chronic combined systolic (congestive) and diastolic (congestive) heart failure (4) Hypertension Code(s): I10 - ESSENTIAL (PRIMARY) HYPERTENSION Qualifiers: Hypertension type: essential hypertension Qualified Code(s): I10 - Essential (primary) hypertension Assessment/Plan Current Medications Generic Name Dose Route Start Last Admin Trade Name Freq PRN Reason Stop Dose Admin Acetaminophen 500 mg 06/09/17 22:14 06/11/17 13:00 Tylenol - PO 500 mg TID PRN Administration pain/fever Albuterol Sulfate 1 amp 06/10/17 00:00 06/15/17 11:59 Ventolin 0.083% Nebulizer Soln - NEB 1 amp QIDR [facility] Administration Aspirin 81 mg 06/15/17 10:00 06/15/17 11:59 Asa - PO 81 mg DAILY [facility] Administration Carvedilol 3.125 mg 06/12/17 10:00 06/15/17 09:51 Coreg - PO 3.125 mg BID [facility] Administration Cyanocobalamin 1,000 mcg 06/10/17 10:00 06/15/17 09:51 Vitamin B12 - PO 1,000 mcg DAILY [facility] Administration Enoxaparin Sodium 40 mg 06/15/17 10:00 06/15/17 11:59 Lovenox - SQ 40 mg DAILY [facility] Administration Ergocalciferol 50,000 unit 06/14/17 10:00 06/14/17 09:54 Drisdol - PO 50,000 unit Johnston@10 [facility] Administration Metronidazole 100 mls @ 100 mls/hr 06/11/17 12:45 06/15/17 09:51 Flagyl 500mg Premixed Ivpb - IVPB 100 mls/hr Q8H-IV [facility] Administration Levofloxacin 100 mls @ 100 mls/hr 06/12/17 18:30 06/15/17 09:51 Levaquin 500 Mg Premixed Ivpb - IVPB 100 mls/hr DAILY [facility] Administration Losartan Potassium 50 mg 06/14/17 10:00 06/15/17 09:51 Cozaar - PO 50 mg DAILY [facility] Administration Non-Formulary Medication 25 mg 06/10/17 10:00 Mirabegron [Myrbetriq] PO DAILY [facility] Polyethylene Glycol 17 gm 06/15/17 14:30 Miralax (For Daily Use) - PO BID [facility] Solifenacin 5 mg 06/10/17 10:00 06/15/17 09:52 Vesicare - PO 5 mg DAILY [facility] Administration Impression 1. RAYO 2. hyperkalemia 3. CAD 4. HTN 5. CHF 6. dementia Plan - renal function is stable - cont fluids with caution to volume status - GI input appreciated - pt is tolerating clears - diuretics on hold - avoid nsaids - will follow PRN - repeat labs in am Dr Holly
--- NOTE | 2017-06-15 16:05 | PN ---
Physical Exam: SUBJECTIVE: Patient seen and examined at bedside. Pt has no complaint of pain today. No other complaints. No fever, dizziness, diarrhea, dysuria. OBJECTIVE: Vital Signs Period Temp Pulse Resp BP Sys/Savage Pulse Ox Last 24 Hr 98.2 F-99 F 46-60 18-18 124-152/53-65 GENERAL: The patient is awake, alert, and fully oriented, in no acute distress. HEAD: Normal with no signs of trauma. EYES: sclera anicteric, conjunctiva clear. No ptosis. ENT: oropharynx clear without exudates, moist mucous membranes. NECK: Trachea midline, full range of motion, supple. LUNGS: Breath sounds equal, clear to auscultation bilaterally, no wheezes, no crackles, no accessory muscle use. HEART: Regular rate and rhythm, normal S1, S2 without murmur, rub or gallop. ABDOMEN: Soft,RUQ tenderness, nondistended, normoactive bowel sounds, guarding, no rebound, no hepatosplenomegaly, no masses. EXTREMITIES: 2+ pulses, warm, well-perfused, no edema. NEUROLOGICAL: Cranial nerves II through XII grossly intact. Normal speech, gait not observed. PSYCH: Normal mood, normal affect. SKIN: Warm, dry, normal turgor, no rashes or lesions noted Laboratory Results - last 24 hr 06/13/17 06/14/17 06/14/17 05:35 17:33 22:42 WBC RBC Hgb Hct MCV MCH MCHC RDW Plt Count MPV Neutrophils % Lymphocytes % Monocytes % Eosinophils % Basophils % Sodium Potassium Chloride Carbon Dioxide Anion Gap BUN Creatinine Creat Clearance w eGFR POC Glucometer 91 97 Random Glucose Calcium Total Bilirubin Direct Bilirubin AST ALT Alkaline Phosphatase Total Protein Albumin Lipase Hep A IgM Ab Confirm Negative Hepatitis A Ab Total Positive H Hep Bs Antigen Negative Hep Bs Antibody Non reactive Hep B Core Total Ab Negative Hepatitis C Antibody 0.1 06/15/17 06/15/17 06/15/17 06:00 06:00 07:05 WBC 6.0 D RBC 2.99 L Hgb 10.0 L Hct 29.7 L MCV 99.2 H MCH 33.5 MCHC 33.8 RDW 13.5 Plt Count 159 MPV 9.3 Neutrophils % 69.1 D Lymphocytes % 20.0 D Monocytes % 8.8 D Eosinophils % 1.7 Basophils % 0.4 Sodium 142 Potassium 4.0 Chloride 109 H Carbon Dioxide 26 Anion Gap 7 L BUN 11 D Creatinine 0.6 Creat Clearance w eGFR > 60 POC Glucometer 80 Random Glucose 81 Calcium 8.2 L Total Bilirubin 0.6 D Direct Bilirubin 0.3 H D AST 33 ALT 72 D Alkaline Phosphatase 119 H Total Protein 5.1 L Albumin 2.5 L Lipase 636 H Hep A IgM Ab Confirm Hepatitis A Ab Total Hep Bs Antigen Hep Bs Antibody Hep B Core Total Ab Hepatitis C Antibody 06/15/17 11:57 WBC RBC Hgb Hct MCV MCH MCHC RDW Plt Count MPV Neutrophils % Lymphocytes % Monocytes % Eosinophils % Basophils % Sodium Potassium Chloride Carbon Dioxide Anion Gap BUN Creatinine Creat Clearance w eGFR POC Glucometer 159 Random Glucose Calcium Total Bilirubin Direct Bilirubin AST ALT Alkaline Phosphatase Total Protein Albumin Lipase Hep A IgM Ab Confirm Hepatitis A Ab Total Hep Bs Antigen Hep Bs Antibody Hep B Core Total Ab Hepatitis C Antibody Active Medications Generic Name Dose Route Start Last Admin Trade Name Freq PRN Reason Stop Dose Admin Acetaminophen 500 mg 06/09/17 22:14 06/11/17 13:00 Tylenol - PO 500 mg TID PRN Administration pain/fever Albuterol Sulfate 1 amp 06/10/17 00:00 06/15/17 11:59 Ventolin 0.083% Nebulizer Soln - NEB 1 amp QIDR JENNIFER Administration Aspirin 81 mg 06/15/17 10:00 06/15/17 11:59 Asa - PO 81 mg DAILY JENNIFER Administration Carvedilol 3.125 mg 06/12/17 10:00 06/15/17 09:51 Coreg - PO 3.125 mg BID JENNIFER Administration Cyanocobalamin 1,000 mcg 06/10/17 10:00 06/15/17 09:51 Vitamin B12 - PO 1,000 mcg DAILY JENNIFER Administration Enoxaparin Sodium 40 mg 06/15/17 10:00 06/15/17 11:59 Lovenox - SQ 40 mg DAILY JENNIFER Administration Ergocalciferol 50,000 unit 06/14/17 10:00 06/14/17 09:54 Drisdol - PO 50,000 unit Johnston@10 JENNIFER Administration Metronidazole 100 mls @ 100 mls/hr 06/11/17 12:45 06/15/17 09:51 Flagyl 500mg Premixed Ivpb - IVPB 100 mls/hr Q8H-IV JENNIFER Administration Levofloxacin 100 mls @ 100 mls/hr 06/12/17 18:30 06/15/17 09:51 Levaquin 500 Mg Premixed Ivpb - IVPB 100 mls/hr DAILY JENNIFER Administration Losartan Potassium 50 mg 06/14/17 10:00 06/15/17 09:51 Cozaar - PO 50 mg DAILY JENNIFER Administration Non-Formulary Medication 25 mg 06/10/17 10:00 Mirabegron [Myrbetriq] PO DAILY JENNIFER Polyethylene Glycol 17 gm 06/15/17 14:30 Miralax (For Daily Use) - PO BID JENNIFER Solifenacin 5 mg 06/10/17 10:00 06/15/17 09:52 Vesicare - PO 5 mg DAILY JENNIFER Administration ASSESSMENT/PLAN: 87yo Citizen Of [place]-speaking F from [facility] with h/o dementia, CHF , HTN, diabetes, vertigo admitted to tele inpatient for hyperkalemia with possible EKG changes and altered mentation with baseline unknown. Head CT neg for acute pathology; CXR moderate congestion; K 6.3 #Cholelithiasis -ERCP for choledocholithiasis last week. Drain in place -pt on flagyl and levaquin. F/u ID recs for duration -GI recs surg consult for possible inpatient cholecystectomy -ID recs depend on possible surgery -Surgery consulted #Constipation x4d -per GI, miralax given #Choledocholithiasis: Resolved by ERCP -No signs of pancreatitis -Monitor lipase # RAYO: Stable -Stopped ARB and aldactone -Renally dosed Mirabegron down to 25mg -Nephro consultation -Avoid nephrotoxins #Fluid status -Pt not in CHF. No JVD, crackles, pedal edema -repeat CXR looks improved #Cards consult -ASA -resume Losartan once stable -consider carvedilol once stable #FEN - not on fluids - lytes wnl - diabetic diet PPX: DVT: Heparin 5000 SQ q8 GI: Not indicated at current time Dispo: Admit to tele inpatient Jose Luis Bradshaw MD PGY-1 Visit type - Emergency Visit Emergency Visit: No - New Patient This patient is new to me today: No - Critical Care Critical Care patient: No - Discharge Referral Referred to [facility] Med P.C.: No
--- NOTE | 2017-06-15 16:23 | PN ---
Teaching Attending Note Name of Resident: Jose Luis Bradshaw ATTENDING PHYSICIAN STATEMENT I saw and evaluated the patient. I reviewed the resident's note and discussed the case with the resident. I agree with the resident's findings and plan as documented. SUBJECTIVE: pt was seen at 9 am with no abd pain then seen at 4:25 and complained of Abd pain OBJECTIVE: on 9 am exam : No TTP on abd , NL BS , ND on 4:25 exam: TTP in RUQ , with + Roa's sign , rest of exam includes: clear lungs . CV: RRRR ASSESSMENT AND PLAN: 87 y/o lady with h/o chronic systolic heart failure , DM , HTN, and dementia who presented with AMS , was found to have hyperkalemia and RAYO. 1- Acute cholecystitis Choledocolithiasis with Ascending cholangitis: s/p urgent ERCP 06/12 CBD stones Abd pain in RUQ has recurred and now pt has Roa's sign again - Cont IVF of LR - cont IV Abx . ID help on duration - start LFTS since abd pain recurred - follow repeat blood cx - D/W Dr. Valdez and Dr. Sandra - Surgery on board 2- RAYO : resolved - cont to hold lasix and aldactone - avoid NSAIDs 3- H/o CHF : No acute decompensation - cont to hold diuresis - cont carvedolol - resume ARB 4- HTN: - ARB . - Coreg Dispo : HLOC
--- NOTE | 2017-06-15 17:00 | CONS ---
DATE OF CONSULTATION: DATE OF DICTATION: 06/15/2017 INFECTIOUS DISEASE CONSULTATION REQUESTING PHYSICIAN: Angela Chery M.D. CONSULTING PHYSICIAN: Anne Larios M.D. HISTORY OF PRESENT ILLNESS: This is an 87-year-old woman who was originally admitted on the from [facility] for hypokalemia and altered mental status. She was felt to be dehydrated, and she was treated with IV fluid. She subsequently developed nausea and vomiting and abnormal LFTs with an elevated white count. She was evaluated for biliary disease, was found to have cholelithiasis. She had an MRCP done that revealed choledocholithiasis and acute cholecystitis. On Thursday she underwent ERCP with stent placement and sphincterotomy and removal of several stones. She is currently stable on Levaquin and Flagyl, and I am asked to see her for further recommendations. She is resting comfortably. She reports intermittent right upper quadrant pain, but reports it is improved. She is tolerating clear fluids. PAST MEDICAL HISTORY: Notable for dementia. She has a history of congestive heart failure, diabetes, hypertension, hyperlipidemia. She has a history of renal insufficiency and she has never had any surgery. ALLERGIES: No known drug allergies. MEDICATION: Medications as an outpatient include vitamin B12, mirabegron, oxybutynin, aspirin, Cozaar, Aldactone, , Lasix, meloxicam, and senna. Vitamin B12. FAMILY HISTORY: Not available at this time. REVIEW OF SYSTEMS: She notes intermittent headache and intermittent right upper quadrant pain. She has had no nausea, vomiting. She is Mongolian speaking. PHYSICAL EXAMINATION: Vital signs: Temperature 98.8, pulse 46, blood pressure 145/65, respiratory rate 18. HEENT: Normocephalic. Eyes are anicteric. Neck: Supple. Lungs: Clear to auscultation. Heart: Regular rate and rhythm. Abdomen: Soft. There is no distention. She has mild right upper quadrant pain on palpation. Extremities: Her extremities are without edema. LABORATORY: Notable for white count of 6 today, was as high as 17.2, hemoglobin is 10, platelets are 159. BUN and creatinine are 11 and 0.6. Total bilirubin is now normal at 0.6. AST and ALT are normal at 33 and 72, and alkaline phosphatase is now 119. Urine and blood cultures are negative. Prior imaging as previously stated. IMPRESSION: In summary, this is an 87-year-old woman who is status post endoscopic retrograde cholangiopancreatography on June 12 with sphincterotomy doing well. She has no fevers. She is tolerating clears. WBC and AST/ALT are normal. Today her alkaline phosphatase is trending down, and bilirubin is normal. She does have intermittent right upper quadrant pain that is being evaluated by GI. I would continue her on IV Levaquin and Flagyl as ordered. Cultures are negative. Would consider switch to oral Levaquin and Flagyl for 1 week when cleared for discharge by GI and surgery. If indeed surgery is postponed, she will need close outpatient followup. Will follow the patient with you. ANNE LARIOS M.D. [id number]
[2017-06-15 18:36] LABS: ALBUMIN 2.4 g/dl (3.4-5.0); BILIRUBIN,DIRECT 0.3 mg/dL (0.0-0.2); BILIRUBIN,TOTAL 0.5 mg/dL (0.2-1.0); TOT PROT 5.1 g/dl (6.4-8.2)
[2017-06-16] MEDS: METRONIDAZOLE 500 MG PREMIXED 100 ML IVPB SCH ×3 (01:05→17:26)
[2017-06-16] MEDS: ALBUTEROL SO4 0.083% IH SOL 2.5 MG/3 ML VIAL.NEB. NEB SCH ×4 (06:06→23:24)
[2017-06-16 07:44] LABS: BASOPHIL 0.6 % (0-2.0); MCH 33.4 pg (25.7-33.7); MCHC 33.8 g/dl (32.0-36.0); MEAN CELL VOLUME 98.7 fl (80-96); NEUTROPHILS 65.8 % (42.8-82.8); PLATELET COUNT 167 K/MM3 (134-434); RDW 13.4 % (11.6-15.6); WHITE BLOOD COUNT 6.4 K/mm3 (4.0-10.0)
[2017-06-16 08:11] LABS: ALBUMIN 2.4 g/dl (3.4-5.0); ALK PHOS 114 U/L (45-117); ANION GAP 6 (8-16); BILIRUBIN,TOTAL 0.6 mg/dL (0.2-1.0); CALCIUM 8.2 mg/dL (8.5-10.1); CO2 28 mmol/L (21-32); CREATININE 0.6 mg/dL (0.55-1.02); GLUCOSE,RANDOM 89 mg/dL (74-106); SGOT/AST 39 U/L (15-37); SGPT/ALT 62 U/L (12-78); TOT PROT 5.2 g/dl (6.4-8.2)
--- NOTE | 2017-06-16 09:42 | PN ---
GI Progress Note Subjective: No acute events Denies abdominal pain No BM as of yet - Objective Vital Signs: Vital Signs Temperature 98.3 F 06/16/17 06:00 Pulse Rate 59 L 06/16/17 06:00 Respiratory Rate 18 06/16/17 06:00 Blood Pressure 148/58 06/16/17 06:00 O2 Sat by Pulse Oximetry (%) 95 06/15/17 21:00 Constitutional: Calm Eyes: No: Sclera Icterus Cardiovascular: Yes: Regular Rate and Rhythm ...Auscultate: Yes: Normoactive Bowel Sounds ...Palpate: Yes: Tenderness (+ TTP RUQ, + canseco's sign) ...Percussion: No: Tympanitic Edema: No Neurological: Yes: Alert Labs: CBC, BMP 06/16/17 06:00 06/16/17 06:00 INR, PTT INR 0.96 (0.82-1.09) 06/09/17 17:25 Hepatic Panel Total Bilirubin 0.6 mg/dL (0.2-1.0) 06/16/17 06:00 Direct Bilirubin 0.3 mg/dL (0.0-0.2) H 06/15/17 17:20 AST 39 U/L (15-37) H 06/16/17 06:00 ALT 62 U/L (12-78) 06/16/17 06:00 Alkaline Phosphatase 114 U/L (45-117) 06/16/17 06:00 Albumin 2.4 g/dl (3.4-5.0) L 06/16/17 06:00 Problem List - Problems (1) Choledocholithiasis with obstruction Assessment/Plan: With suspected cholecystitis Discussed case w/ Dr. Renzo Lowery today. Explained that Ms. Hobbs still w/ RUQ pain and canseco's sign. He felt that the best course at this point was for percutaneous drainage of the gallbladder as opposed to cholecystectomy at this time. He explaiend that he would be calling radiology to arrange this Continue abx. for now Clear liquids Code(s): K80.51 - CALCULUS OF BILE DUCT W/O CHOLANGITIS OR CHOLECYST W OBST Qualifiers: Cholecystitis presence: with cholecystitis Cholecystitis acuity: acute and chronic Qualified Code(s): K80.47 - Calculus of bile duct with acute and chronic cholecystitis with obstruction
[2017-06-16] MEDS: CARVEDILOL 3.125 MG TABLET (FP) PO SCH ×2 (10:29→21:22)
[2017-06-16] MEDS: CYANOCOBALAMIN 1,000 MCG TABLET (FP) PO SCH (10:29)
[2017-06-16] MEDS: LOSARTAN POTASSIUM 50 MG TABLET (FP) PO SCH (10:29)
[2017-06-16] MEDS: POLYETHYLENE GLYCOL 3350 119 GM BTL PO SCH ×2 (10:33→21:23)
[2017-06-16] MEDS ORDERED: PT OWN MED DRAWER 7, Y5N ONE (10:35)
[2017-06-16] MEDS: SOLIFENACIN SUCCINATE 5 MG TAB (FP) PO SCH (10:35)
--- NOTE | 2017-06-16 11:52 | PN ---
Progress Note (short form) - Note Progress Note: Case was discussed with interventional radiologist: his concern was Ms. Hobbs pulling out cholecystostomy tube if one was placed. Follow-up US was obtained. He says that she had mild pain upon palpation of the RUQ with the US transducer. It revealed a thick walled gallbladder that was not dilated. He felt that given these findings risking her maintaining a cholecystostomy tube at a assisted would be difficult and advised medical management as surgery has been deferred by surgery. I had spoken to Dr. Renzo Lowery as well prior to this. He advised that someone from his group would be in to reevaluate Ms. Hobbs today. Surgery can then reaseess and advance diet. If worsening pain, leukocytosis, then would advise repeat abdominal imaging with contrast CT scan If no interventions are planned, then ID can help with course of duration of Abx therapy and choice as outpatient Will need office follow-up with Dr. Best when acute issues are resolved for reevaluation, stent removal Problem List - Problems (1) Choledocholithiasis with obstruction Code(s): K80.51 - CALCULUS OF BILE DUCT W/O CHOLANGITIS OR CHOLECYST W OBST Qualifiers: Cholecystitis presence: with cholecystitis Cholecystitis acuity: acute and chronic Qualified Code(s): K80.47 - Calculus of bile duct with acute and chronic cholecystitis with obstruction
[2017-06-16] MEDS: LEVOFLOXACIN 500 MG IVPB 100 ML IVPB SCH (13:16)
[2017-06-16] MEDS: ENOXAPARIN NA (PORCINE) 40 MG/0.4 ML DISP.SYRIN SQ SCH (13:17)
[2017-06-16] MEDS: ASPIRIN 81 MG CHEWABLE TABLETS PO SCH (13:25)
--- NOTE | 2017-06-16 13:41 | CONS ---
RE-CONSULTATION DATE OF CONSULTATION: 06/16/2017 CONSULTING PHYSICIAN: Leonides Arrington MD (General Surgery) REASON FOR CONSULTATION: Biliary disease. HISTORY: This is an 87-year-old woman who presented several days ago with syncope and was ultimately found to have right upper quadrant pain. Workup demonstrated evidence of cholelithiasis and choledocholithiasis. She was found initially to have a white count of 17.2 K with elevated liver function studies as well. She apparently underwent an ERCP with extraction of multiple stones from her CBD for presumed cholangitis. Although the patient had developed signs of post-procedure pancreatitis, those seem to have resolved. The question now is whether she should undergo cholecystectomy while here in the hospital or as a delayed intervention after completion of her antibiotics and a chance for her inflammatory changes secondary to her acute event to resolve. PAST MEDICAL HISTORY: Quite significant and includes hypertension, CHF, renal disease. Patient is communicative, but I am not sure, despite the fact that I speak with her in Pashto, that she truly follows my thought process. Nonetheless, she clearly denies having any pain and is tolerating a diet. PHYSICAL EXAMINATION: Vital Signs: Stable and she is afebrile. Abdomen: Obese, soft, and nontender throughout. Meticulous palpation of the right upper quadrant is unremarkable. Blood cultures demonstrated no growth since being secured. WBC today is 6.4 with a hemoglobin of 10.2 and hematocrit 30.3 respectively. Her liver chemistries are essentially normal except for minimal elevation of her AST at 39. She also has a mild elevation of her lipase at 640. IMPRESSION: Recent choledocholithiasis managed successfully with endoscopic retrograde cholangiopancreatography. Chronic cholecystitis/cholelithiasis. Cannot entirely rule out an element of acute cholecystitis. Patient with no clinical signs of acute cholecystitis as evidenced by her soft, nontender abdomen, her afebrile state, and her normal white count. SUGGEST: I feel it would be optimal if her cholecystectomy could be put off for several weeks. This would allow all of her inflammatory changes to resolve and would make the imperative intervention a safer approach in this chronic gallbladder. Clearly, the patient is in need of cholecystectomy. However, cholecystectomy at this time could potentially be fraught with potential intraoperative problems (i.e. injury) given the current scenario. It would be my advice at this juncture to advance diet as tolerated. Continue complete antibiotics. If the patient remains asymptomatic with normal white cunt as evidenced today, would discharge home and let her be re-evaluated in the next couple of weeks for elective admission and cholecystectomy. Thought had been given to percutaneous cholecystostomy. However, given the patient's slight dementia, it was thought that this would be potentially difficult to maintain as the patient would be more at risk for inadvertently removing the tube. We will advance diet as tolerated at this juncture. If the patient becomes symptomatic or if there is evidence of change in her status, would be happy to re-evaluate. Otherwise, if the patient continues to improve and complete her antibiotics, patient should be evaluated in the office as an outpatient in the next couple of weeks. I remain available and thank you. LEONIDES ARRINGTON M.D. [id number] MTDD
[2017-06-16] MEDS ORDERED: DOCUSATE SODIUM 100 MG CAPSULE (FP) PO ONE (13:45)
--- NOTE | 2017-06-16 15:06 | PN ---
Progress Note (short form) - Note Progress Note: Chief Complaint: Events noted, notes reviewed. Patient was seen earlier today being transported to interventional radiology, denies any chest pain or dyspnea , continues to report persistence of right upper quadrant discomfort History of Present Illness: Seen and examined. Events noted, notes reviewed. Patient was seen earlier today being transported to interventional radiology, denies any chest pain or dyspnea , continues to report persistence of right upper quadrant discomfort Echocardiography reveled mild LV systolic dysfunction, mild to moderate MR, mild TR with RVSP between 30-40 mmHg - Current Medication List Current Medications Acetaminophen (Tylenol -) 500 mg PO TID PRN PRN Reason: pain/fever Last Admin: 06/11/17 13:00 Dose: 500 mg Albuterol Sulfate (Ventolin 0.083% Nebulizer Soln -) 1 amp NEB QIDR [facility] Last Admin: 06/16/17 06:06 Dose: Not Given Carvedilol (Coreg -) 3.125 mg PO BID [facility] Last Admin: 06/16/17 10:29 Dose: 3.125 mg Cyanocobalamin (Vitamin B12 -) 1,000 mcg PO DAILY [facility] Last Admin: 06/16/17 10:29 Dose: 1,000 mcg Enoxaparin Sodium (Lovenox -) 40 mg SQ DAILY [facility] Last Admin: 06/16/17 13:17 Dose: Not Given Ergocalciferol (Drisdol -) 50,000 unit PO Johnston@10 [facility] Last Admin: 06/14/17 09:54 Dose: 50,000 unit Metronidazole (Flagyl 500mg Premixed Ivpb -) 100 mls @ 100 mls/hr IVPB Q8H-IV [facility] Last Admin: 06/16/17 10:29 Dose: 100 mls/hr Levofloxacin (Levaquin 500 Mg Premixed Ivpb -) 100 mls @ 100 mls/hr IVPB DAILY [facility] Last Admin: 06/16/17 13:16 Dose: 100 mls/hr Losartan Potassium (Cozaar -) 50 mg PO DAILY [facility] Last Admin: 06/16/17 10:29 Dose: 50 mg Non-Formulary Medication (Mirabegron [Myrbetriq]) 25 mg PO DAILY [facility] Polyethylene Glycol (Miralax (For Daily Use) -) 17 gm PO BID [facility] Last Admin: 06/16/17 10:33 Dose: 17 grams Solifenacin (Vesicare -) 5 mg PO DAILY [facility] Last Admin: 06/16/17 10:35 Dose: 5 mg - Objective Vital Signs: Last Vital Signs Temp Pulse Resp BP Pulse Ox 99.0 F 50 L 18 151/67 95 06/16/17 14:44 06/16/17 14:44 06/16/17 14:44 06/16/17 14:44 06/15/17 21:00 Intake & Output 06/13/17 06/14/17 06/15/17 06/16/17 23:59 23:59 23:59 23:59 Intake Total 2320 812 2205 100 Balance 2320 812 2205 100 Neck: Supple Negative JVD no bruit appreciated Cardiovascular: S1 and S2 Regular Rate and Rhythm No murmurs clicks or gallops Respiratory: Diminished Breath Sounds at the Bases Bilaterally Gastrointestinal: Soft Normal Bowel Sounds Ext: No Edema Labs: CBC, BMP 06/16/17 06:00 06/16/17 06:00 Assessment/Plan ASSESSMENT: 1. Choledocholithiasis, with ascending cholanangitis post ERCP for future cholecystectomy 2. Post acute renal insufficiency with hyperkalemia, resolved hyperkalemia 3. Coronary artery disease angina pectoris, stable EKG changes pseudo- normalization of anterior T-wave abnormality 4. Diastolic/Systolic left ventricular dysfunction with chronic class I [place] [employer] classification left ventricular congestive heart failure , compensated/euvolemic 5. HTN 6. Organic brain syndrome/dementia 7. Anemia PLAN: 1. Continue Coreg, hemodynamics permitting 2. Continue Cozaar therapy with close monitoring of renal function 3. Continue to withhold Diuretic therapy including Lasix and Aldactone, to be resumed gradually if clinically indicated with caution 4. Antibiotics as per the primary team 5. As outlined in prior notes there are no absolute contraindications in proceeding with the above planned cholecystectomy considering that there is no clinical evidence of acute coronary syndrome and/or decompensated congestive heart failure and/or malignant sustained ventricular arrhythmia Kristina Burrell M.D.
--- NOTE | 2017-06-16 16:14 | PN ---
Physical Exam: SUBJECTIVE: Patient seen and examined at bedside. Pt has no complaint today. No other complaints. No fever, dizziness, diarrhea, dysuria. OBJECTIVE: Vital Signs Period Temp Pulse Resp BP Sys/Savage Pulse Ox Last 24 Hr 98.2 F-99.2 F 50-59 18-18 145-159/54-88 95 GENERAL: The patient is awake, alert, and oriented x2, in no acute distress. HEAD: Normal with no signs of trauma. EYES: sclera anicteric, conjunctiva clear. No ptosis. ENT: oropharynx clear without exudates, moist mucous membranes. NECK: Trachea midline, full range of motion, supple. LUNGS: Breath sounds equal, clear to auscultation bilaterally, no wheezes, no crackles, no accessory muscle use. HEART: Regular rate and rhythm, normal S1, S2 without murmur, rub or gallop. ABDOMEN: Soft, moderate RUQ tenderness, nondistended, normoactive bowel sounds, guarding, no rebound, no hepatosplenomegaly, no masses. EXTREMITIES: 2+ pulses, warm, well-perfused, no edema. NEUROLOGICAL: Cranial nerves II through XII grossly intact. Normal speech, gait not observed. PSYCH: Normal mood, normal affect. SKIN: Warm, dry, normal turgor, no rashes or lesions noted Laboratory Results - last 24 hr 06/15/17 06/15/17 06/15/17 16:47 17:20 22:28 WBC RBC Hgb Hct MCV MCH MCHC RDW Plt Count MPV Neutrophils % Lymphocytes % Monocytes % Eosinophils % Basophils % Sodium Potassium Chloride Carbon Dioxide Anion Gap BUN Creatinine Creat Clearance w eGFR POC Glucometer 86 112 Random Glucose Calcium Total Bilirubin 0.5 Direct Bilirubin 0.3 H AST 38 H ALT 66 Alkaline Phosphatase 114 Total Protein 5.1 L Albumin 2.4 L Lipase 06/16/17 06/16/17 06/16/17 06:00 06:00 06:09 WBC 6.4 RBC 3.07 L Hgb 10.2 L Hct 30.3 L MCV 98.7 H MCH 33.4 MCHC 33.8 RDW 13.4 Plt Count 167 MPV 9.0 Neutrophils % 65.8 Lymphocytes % 21.7 Monocytes % 9.9 Eosinophils % 2.0 Basophils % 0.6 Sodium 142 Potassium 3.7 Chloride 108 H Carbon Dioxide 28 Anion Gap 6 L BUN 8 D Creatinine 0.6 Creat Clearance w eGFR > 60 POC Glucometer 96 Random Glucose 89 Calcium 8.2 L Total Bilirubin 0.6 Direct Bilirubin AST 39 H ALT 62 Alkaline Phosphatase 114 Total Protein 5.2 L Albumin 2.4 L Lipase 640 H 06/16/17 12:15 WBC RBC Hgb Hct MCV MCH MCHC RDW Plt Count MPV Neutrophils % Lymphocytes % Monocytes % Eosinophils % Basophils % Sodium Potassium Chloride Carbon Dioxide Anion Gap BUN Creatinine Creat Clearance w eGFR POC Glucometer 97 Random Glucose Calcium Total Bilirubin Direct Bilirubin AST ALT Alkaline Phosphatase Total Protein Albumin Lipase Active Medications Generic Name Dose Route Start Last Admin Trade Name Freq PRN Reason Stop Dose Admin Acetaminophen 500 mg 06/09/17 22:14 06/11/17 13:00 Tylenol - PO 500 mg TID PRN Administration pain/fever Albuterol Sulfate 1 amp 06/10/17 00:00 06/16/17 06:06 Ventolin 0.083% Nebulizer Soln - NEB Not Given QIDR JENNIFER Carvedilol 3.125 mg 06/12/17 10:00 06/16/17 10:29 Coreg - PO 3.125 mg BID JENNIFER Administration Cyanocobalamin 1,000 mcg 06/10/17 10:00 06/16/17 10:29 Vitamin B12 - PO 1,000 mcg DAILY JENNIFER Administration Enoxaparin Sodium 40 mg 06/15/17 10:00 06/16/17 13:17 Lovenox - SQ Not Given DAILY JENNIFER Ergocalciferol 50,000 unit 06/14/17 10:00 06/14/17 09:54 Drisdol - PO 50,000 unit Johnston@10 JENNIFER Administration Metronidazole 100 mls @ 100 mls/hr 06/11/17 12:45 06/16/17 10:29 Flagyl 500mg Premixed Ivpb - IVPB 100 mls/hr Q8H-IV JENNIFER Administration Levofloxacin 100 mls @ 100 mls/hr 06/12/17 18:30 06/16/17 13:16 Levaquin 500 Mg Premixed Ivpb - IVPB 100 mls/hr DAILY EJNNIFER Administration Losartan Potassium 50 mg 06/14/17 10:00 06/16/17 10:29 Cozaar - PO 50 mg DAILY JENNIFER Administration Non-Formulary Medication 25 mg 06/10/17 10:00 Mirabegron [Myrbetriq] PO DAILY JENNIFER Polyethylene Glycol 17 gm 06/15/17 14:30 06/16/17 10:33 Miralax (For Daily Use) - PO 17 grams BID JENNIFER Administration Solifenacin 5 mg 06/10/17 10:00 06/16/17 10:35 Vesicare - PO 5 mg DAILY JENNIFER Administration ASSESSMENT/PLAN: 87yo Portuguese-speaking F from [facility] with h/o dementia, CHF , HTN, diabetes, vertigo admitted to tele inpatient for hyperkalemia with possible EKG changes and altered mentation with baseline unknown. Head CT neg for acute pathology; CXR moderate congestion; K 6.3 #Cholelithiasis -ERCP for choledocholithiasis last week. stent in place -pt on flagyl and levaquin. per ID recs for duration will depend on plan regarding surgery -GI approached IR today about placing a drain. It was not placed because of concern over the patient's mental status and likelihood that she would pull the drain out. GI spoke with surgery, who plan to see the patient today and determine a plan for advancing diet and/or surgery. -Per cardio, no absolute contraindication to cholecystectomy #Constipation x4d -per GI, miralax given -dolculax #Choledocholithiasis: Resolved by ERCP -No signs of pancreatitis -will stop monitoring lipase # RAYO: Stable -Stopped ARB and aldactone -Renally dosed Mirabegron down to 25mg -Nephro consultation -Avoid nephrotoxins #Fluid status -Pt not in CHF. No JVD, crackles, pedal edema -repeat CXR looks improved #Cards consult -ASA -resume Losartan once stable -consider carvedilol once stable #FEN - not on fluids - lytes wnl - diabetic diet PPX: DVT: Heparin 5000 SQ q8 GI: Not indicated at current time Dispo: Admit to tele inpatient Jose Luis Bradshaw MD PGY-1 Visit type - Emergency Visit Emergency Visit: No - New Patient This patient is new to me today: No - Critical Care Critical Care patient: No - Discharge Referral Referred to [facility] Med P.C.: No
--- NOTE | 2017-06-16 16:23 | PN ---
Teaching Attending Note Name of Resident: Jose Luis Bradshaw ATTENDING PHYSICIAN STATEMENT I saw and evaluated the patient. I reviewed the resident's note and discussed the case with the resident. I agree with the resident's findings and plan as documented. SUBJECTIVE: no pain , no N/V OBJECTIVE: NAD Cv : RRR, no JVD Lungs : CTAB ext : no edema Abd: TTP in RUQ but less than yesterday's ASSESSMENT AND PLAN: 87 y/o lady with h/o chronic systolic heart failure , DM , HTN, and dementia who presented with AMS , was found to have hyperkalemia and RAYO. 1- Acute cholecystitis Choledocolithiasis with Ascending cholangitis: s/p urgent ERCP 06/12 , CBD stones removed Abd pain in RUQ is better today . repeat US with thick gall bladder wall - probably can dc IVF tomorrow - cont Abx. - appreciate GI help: cholecystostomy tube was not advised by radiologist - Appreciate Surgical help, to reevaluate for CCY as out pt - advance diet - duration of abx to be determined - important to follow with Dr. Best as out pt for stent removal after CCY 2- RAYO : resolved - cont to hold lasix and aldactone - avoid NSAIDs 3- H/o CHF : No acute decompensation - cont to hold diuresis. when diuresis is resumed, yimi maintain on lasix only to avoid hyperkalemia ( happended while on aldactone and ARB) - cont carvedolol - Cont ARB 4- HTN: - ARB . - Coreg Dispo : HLOC Dipso : when diet is tolerated , adn abd exam is improved , can be dc. please make appointment with Dr. Lowery before DC
[2017-06-17] MEDS: METRONIDAZOLE 500 MG PREMIXED 100 ML IVPB SCH ×3 (01:33→17:18)
[2017-06-17] MEDS: ALBUTEROL SO4 0.083% IH SOL 2.5 MG/3 ML VIAL.NEB. NEB SCH ×3 (06:35→19:31)
--- NOTE | 2017-06-17 08:20 | PN ---
Physical Exam: SUBJECTIVE: Patient seen and examined at bedside. Pt has no complaint today. No other complaints. No fever, dizziness, diarrhea, dysuria. OBJECTIVE: Vital Signs Period Temp Pulse Resp BP Sys/Savage Pulse Ox Last 24 Hr 98.4 F-99.8 F 50-63 18-18 106-151/62-88 96 GENERAL: The patient is awake, alert, and oriented x2, in no acute distress. HEAD: Normal with no signs of trauma. EYES: sclera anicteric, conjunctiva clear. No ptosis. ENT: oropharynx clear without exudates, moist mucous membranes. NECK: Trachea midline, full range of motion, supple. LUNGS: Breath sounds equal, clear to auscultation bilaterally, no wheezes, no crackles, no accessory muscle use. HEART: Regular rate and rhythm, normal S1, S2 without murmur, rub or gallop. ABDOMEN: Soft, No RUQ tenderness today, nondistended, normoactive bowel sounds, guarding, no rebound, no hepatosplenomegaly, no masses. EXTREMITIES: 2+ pulses, warm, well-perfused, no edema. NEUROLOGICAL: Cranial nerves II through XII grossly intact. Normal speech, gait not observed. PSYCH: Normal mood, normal affect. SKIN: Warm, dry, normal turgor, no rashes or lesions noted Laboratory Results - last 24 hr 06/16/17 06/17/17 12:15 05:48 POC Glucometer 97 99 Active Medications Generic Name Dose Route Start Last Admin Trade Name Freq PRN Reason Stop Dose Admin Acetaminophen 500 mg 06/09/17 22:14 06/11/17 13:00 Tylenol - PO 500 mg TID PRN Administration pain/fever Albuterol Sulfate 1 amp 06/10/17 00:00 06/17/17 06:35 Ventolin 0.083% Nebulizer Soln - NEB Not Given QIDR JENNIFER Carvedilol 3.125 mg 06/12/17 10:00 06/16/17 21:22 Coreg - PO 3.125 mg BID JENNIFER Administration Cyanocobalamin 1,000 mcg 06/10/17 10:00 06/16/17 10:29 Vitamin B12 - PO 1,000 mcg DAILY JENNIFER Administration Enoxaparin Sodium 40 mg 06/15/17 10:00 06/16/17 13:17 Lovenox - SQ Not Given DAILY JENNIFER Ergocalciferol 50,000 unit 06/14/17 10:00 06/14/17 09:54 Drisdol - PO 50,000 unit Johnston@10 JENNIFER Administration Metronidazole 100 mls @ 100 mls/hr 06/11/17 12:45 06/17/17 01:33 Flagyl 500mg Premixed Ivpb - IVPB 100 mls/hr Q8H-IV JENNIFER Administration Levofloxacin 100 mls @ 100 mls/hr 06/12/17 18:30 06/16/17 13:16 Levaquin 500 Mg Premixed Ivpb - IVPB 100 mls/hr DAILY JENNIFER Administration Losartan Potassium 50 mg 06/14/17 10:00 06/16/17 10:29 Cozaar - PO 50 mg DAILY JENNIFER Administration Non-Formulary Medication 25 mg 06/10/17 10:00 Mirabegron [Myrbetriq] PO DAILY JENNIFER Polyethylene Glycol 17 gm 06/15/17 14:30 06/16/17 21:23 Miralax (For Daily Use) - PO 17 grams BID JENNIFER Administration Solifenacin 5 mg 06/10/17 10:00 06/16/17 10:35 Vesicare - PO 5 mg DAILY JENNIFER Administration ASSESSMENT/PLAN: 87yo Liberian-speaking F from [facility] with h/o dementia, CHF , HTN, diabetes, vertigo admitted to [facility] inpatient for hyperkalemia with possible EKG changes and altered mentation with baseline unknown. Head CT neg for acute pathology; CXR moderate congestion; K 6.3 #Cholelithiasis -ERCP for choledocholithiasis last week. stent in place -pt on flagyl and levaquin. per ID recs for duration will depend on plan regarding surgery -GI approached IR today about placing a drain. It was not placed because of concern over the patient's mental status and likelihood that she would pull the drain out. GI spoke with surgery, who plan to see the patient today and determine a plan for advancing diet and/or surgery. -Per cardio, no absolute contraindication to cholecystectomy #Constipation x4d -per GI, miralax given -dolculax #Choledocholithiasis: Resolved by ERCP -No signs of pancreatitis -will stop monitoring lipase # RAYO: Stable -Stopped ARB and aldactone -Renally dosed Mirabegron down to 25mg -Nephro consultation -Avoid nephrotoxins #Fluid status -Pt not in CHF. No JVD, crackles, pedal edema -repeat CXR looks improved #Cards consult -ASA -resume Losartan once stable -consider carvedilol once stable #FEN - not on fluids - lytes wnl - diabetic diet PPX: DVT: Heparin 5000 SQ q8 GI: Not indicated at current time Dispo: Admit to tele inpatient Jose Luis Bradshaw MD PGY-1 Visit type - Emergency Visit Emergency Visit: No - New Patient This patient is new to me today: No - Critical Care Critical Care patient: No - Discharge Referral Referred to [facility] Med P.C.: No
--- NOTE | 2017-06-17 11:01 | PN ---
Teaching Attending Note Name of Resident: Jose Luis Bradshaw ATTENDING PHYSICIAN STATEMENT I saw and evaluated the patient. I reviewed the resident's note and discussed the case with the resident. I agree with the resident's findings and plan as documented. SUBJECTIVE: Patient is comfortable, tolerating diet well. OBJECTIVE: Vital Signs Temperature 99.1 F 06/17/17 09:45 Pulse Rate 54 L 06/17/17 09:45 Respiratory Rate 20 06/17/17 09:45 Blood Pressure 157/67 06/17/17 09:45 O2 Sat by Pulse Oximetry (%) 96 06/16/17 21:00 CBCD WBC 6.4 K/mm3 (4.0-10.0) 06/16/17 06:00 RBC 3.07 M/mm3 (3.60-5.2) L 06/16/17 06:00 Hgb 10.2 GM/dL (10.7-15.3) L 06/16/17 06:00 Hct 30.3 % (32.4-45.2) L 06/16/17 06:00 MCV 98.7 fl (80-96) H 06/16/17 06:00 MCHC 33.8 g/dl (32.0-36.0) 06/16/17 06:00 RDW 13.4 % (11.6-15.6) 06/16/17 06:00 Plt Count 167 K/MM3 (134-434) 06/16/17 06:00 MPV 9.0 fl (7.5-11.1) 06/16/17 06:00 CMP Sodium 142 mmol/L (136-145) 06/16/17 06:00 Potassium 3.7 mmol/L (3.5-5.1) 06/16/17 06:00 Chloride 108 mmol/L (98-107) H 06/16/17 06:00 Carbon Dioxide 28 mmol/L (21-32) 06/16/17 06:00 Anion Gap 6 (8-16) L 06/16/17 06:00 BUN 8 mg/dL (7-18) D 06/16/17 06:00 Creatinine 0.6 mg/dL (0.55-1.02) 06/16/17 06:00 Creat Clearance w eGFR > 60 (>60) 06/16/17 06:00 Random Glucose 89 mg/dL (74-106) 06/16/17 06:00 Calcium 8.2 mg/dL (8.5-10.1) L 06/16/17 06:00 Total Bilirubin 0.6 mg/dL (0.2-1.0) 06/16/17 06:00 AST 39 U/L (15-37) H 06/16/17 06:00 ALT 62 U/L (12-78) 06/16/17 06:00 Alkaline Phosphatase 114 U/L (45-117) 06/16/17 06:00 Total Protein 5.2 g/dl (6.4-8.2) L 06/16/17 06:00 Albumin 2.4 g/dl (3.4-5.0) L 06/16/17 06:00 CARDIAC ENZYMES Creatine Kinase 47 IU/L (26-192) 06/09/17 17:25 Troponin I < 0.02 ng/ml (0.00-0.05) 06/09/17 23:10 Current Medications Generic Name Dose Route Start Last Admin Trade Name Freq PRN Reason Stop Dose Admin Acetaminophen 500 mg 06/09/17 22:14 06/11/17 13:00 Tylenol - PO 500 mg TID PRN Administration pain/fever Albuterol Sulfate 1 amp 06/10/17 00:00 06/17/17 06:35 Ventolin 0.083% Nebulizer Soln - NEB Not Given QIDR JENNIFER Carvedilol 3.125 mg 06/12/17 10:00 06/16/17 21:22 Coreg - PO 3.125 mg BID JENNIFER Administration Cyanocobalamin 1,000 mcg 06/10/17 10:00 06/16/17 10:29 Vitamin B12 - PO 1,000 mcg DAILY JENNIFER Administration Enoxaparin Sodium 40 mg 06/15/17 10:00 06/16/17 13:17 Lovenox - SQ Not Given DAILY JENNIFER Ergocalciferol 50,000 unit 06/14/17 10:00 06/14/17 09:54 Drisdol - PO 50,000 unit Johnston@10 JENNIFER Administration Metronidazole 100 mls @ 100 mls/hr 06/11/17 12:45 06/17/17 01:33 Flagyl 500mg Premixed Ivpb - IVPB 100 mls/hr Q8H-IV JENNIFER Administration Levofloxacin 100 mls @ 100 mls/hr 06/12/17 18:30 06/16/17 13:16 Levaquin 500 Mg Premixed Ivpb - IVPB 100 mls/hr DAILY JENNIFER Administration Losartan Potassium 50 mg 06/14/17 10:00 06/16/17 10:29 Cozaar - PO 50 mg DAILY JENNIFER Administration Non-Formulary Medication 25 mg 06/10/17 10:00 Mirabegron [Myrbetriq] PO DAILY JENNIFER Polyethylene Glycol 17 gm 06/15/17 14:30 06/16/17 21:23 Miralax (For Daily Use) - PO 17 grams BID JENNIFER Administration Solifenacin 5 mg 06/10/17 10:00 06/16/17 10:35 Vesicare - PO 5 mg DAILY JENNIFER Administration Home Medications Medication Instructions Recorded Acetaminophen [Pain Reliever] 500 mg PO TID PRN 05/18/16 Cyanocobalamin [Vitamin B12 -] 1,000 mcg PO DAILY 05/18/16 Mirabegron [Myrbetriq] 50 mg PO DAILY 05/18/16 Oxybutynin Chloride [Oxybutynin 10 mg PO DAILY 05/18/16 Chloride ER] Aspirin [ASA -] 81 mg PO DAILY tab.chew 05/23/16 Losartan Potassium [Cozaar -] 100 mg PO DAILY tablet 05/23/16 Spironolactone [Aldactone -] 25 mg PO DAILY tablet 05/23/16 Ergocalciferol [Drisdol -] 50,000 unit PO Q7D@1000 06/09/17 Furosemide [Lasix -] 20 mg PO DAILY 06/09/17 Meloxicam 7.5 mg PO ASDIR 06/09/17 Sennosides [Senna] 2 tab PO DAILY 06/09/17 Abdomen: mild tenderness on deep palpation of RUQ area. positive BS. ASSESSMENT AND PLAN: 87 y/o lady with h/o chronic systolic heart failure , DM , HTN, and dementia who presented with AMS , was found to have hyperkalemia and RAYO. # Acute cholecystitis Choledocolithiasis with Ascending cholangitis: s/p urgent ERCP 06/12 s/p stent , CBD stones removed follow with Dr. Best as out pt for stent removal after CCY, patient is given an appointment with Dr. Orlando for 06/22/2017 Patient is being discharged on one week of antibiotics levaquin and flagyl. Follow up needed with dr. ajy # RAYO : resolved , patient is being placed back on Lasix 40mg po daily and Spironolactone 12.5mg daily discussed with agrees with the plan. # H/o CHF : No acute decompensation cont carvedolol , ARB , lasic and spirinolactone # HTN: continue ARB . Coreg Dipso : diet is tolerated , discussed with ID, , Dr.Roberto Lopez
--- NOTE | 2017-06-17 11:33 | PN ---
Progress Note, Physician History of Present Illness: Tolerating diet without abd pain, nausea, emesis, fevers or chills. - Current Medication List Current Medications: Active Medications Acetaminophen (Tylenol -) 500 mg PO TID PRN PRN Reason: pain/fever Last Admin: 06/11/17 13:00 Dose: 500 mg Albuterol Sulfate (Ventolin 0.083% Nebulizer Soln -) 1 amp NEB QIDR [facility] Last Admin: 06/17/17 06:35 Dose: Not Given Carvedilol (Coreg -) 3.125 mg PO BID [facility] Last Admin: 06/16/17 21:22 Dose: 3.125 mg Cyanocobalamin (Vitamin B12 -) 1,000 mcg PO DAILY [facility] Last Admin: 06/16/17 10:29 Dose: 1,000 mcg Enoxaparin Sodium (Lovenox -) 40 mg SQ DAILY [facility] Last Admin: 06/16/17 13:17 Dose: Not Given Ergocalciferol (Drisdol -) 50,000 unit PO Johnston@10 [facility] Last Admin: 06/14/17 09:54 Dose: 50,000 unit Metronidazole (Flagyl 500mg Premixed Ivpb -) 100 mls @ 100 mls/hr IVPB Q8H-IV [facility] Last Admin: 06/17/17 01:33 Dose: 100 mls/hr Levofloxacin (Levaquin 500 Mg Premixed Ivpb -) 100 mls @ 100 mls/hr IVPB DAILY [facility] Last Admin: 06/16/17 13:16 Dose: 100 mls/hr Losartan Potassium (Cozaar -) 50 mg PO DAILY [facility] Last Admin: 06/16/17 10:29 Dose: 50 mg Non-Formulary Medication (Mirabegron [Myrbetriq]) 25 mg PO DAILY [facility] Polyethylene Glycol (Miralax (For Daily Use) -) 17 gm PO BID [facility] Last Admin: 06/16/17 21:23 Dose: 17 grams Solifenacin (Vesicare -) 5 mg PO DAILY [facility] Last Admin: 06/16/17 10:35 Dose: 5 mg - Objective Vital Signs: Vital Signs Temperature 99.1 F 06/17/17 09:45 Pulse Rate 54 L 06/17/17 09:45 Respiratory Rate 20 06/17/17 09:45 Blood Pressure 157/67 06/17/17 09:45 O2 Sat by Pulse Oximetry (%) 96 06/16/17 21:00 Constitutional: Yes: No Distress, Calm Neck: Yes: Supple Cardiovascular: Yes: Regular Rate and Rhythm Respiratory: Yes: Regular, Diminished Gastrointestinal: Yes: Normal Bowel Sounds, Soft, Abdomen, Obese Edema: No Labs: CBC, BMP 06/16/17 06:00 06/16/17 06:00 INR, PTT INR 0.96 (0.82-1.09) 06/09/17 17:25 Problem List - Problems (1) Cholangitis due to bile duct calculus with obstruction Code(s): K80.31 - CALCULUS OF BILE DUCT W CHOLANGITIS, UNSP, WITH OBSTRUCTION (2) Hypertension Code(s): I10 - ESSENTIAL (PRIMARY) HYPERTENSION Qualifiers: Qualified Code(s): I10 - Essential (primary) hypertension (3) Choledocholithiasis with obstruction Code(s): K80.51 - CALCULUS OF BILE DUCT W/O CHOLANGITIS OR CHOLECYST W OBST Qualifiers: Qualified Code(s): K80.47 - Calculus of bile duct with acute and chronic cholecystitis with obstruction (4) Cholelithiasis and acute cholecystitis with obstruction Code(s): K80.01 - CALCULUS OF GALLBLADDER W ACUTE CHOLECYSTITIS W OBSTRUCTION Assessment/Plan 1. Choledocholithiasis, with ascending cholanangitis post ERCP for future cholecystectomy 2. Post acute renal insufficiency with hyperkalemia, resolved hyperkalemia 3. Coronary artery disease angina pectoris, stable EKG changes pseudo- normalization of anterior T-wave abnormality 4. Diastolic/Systolic left ventricular dysfunction with chronic class I [employer] classification left ventricular congestive heart failure , compensated/euvolemic 5. HTN 6. Organic brain syndrome/dementia 7. Anemia PLAN: 1. Continue Coreg 3.125 bid, hemodynamics permitting 2. Continue Cozaar 50 qd with close monitoring of renal function 3. Aldactone to be resumed gradually with monitor renal function and electrolytes 4. Complete Antibiotics course per the primary team 5. As outlined in prior notes there are no absolute contraindications in proceeding with the above planned cholecystectomy considering that there is no clinical evidence of acute coronary syndrome and/or decompensated congestive heart failure and/or malignant sustained ventricular arrhythmia
[2017-06-17] MEDS ORDERED: PT OWN MED DRAWER 7, Y5N ONE (11:52)
--- NOTE | 2017-06-17 11:55 | PN ---
GI Progress Note Subjective: No acute events Denies abdominal pain - Objective Vital Signs: Vital Signs Temperature 99.1 F 06/17/17 09:45 Pulse Rate 54 L 06/17/17 09:45 Respiratory Rate 20 06/17/17 09:45 Blood Pressure 157/67 06/17/17 09:45 O2 Sat by Pulse Oximetry (%) 96 06/16/17 21:00 Constitutional: Calm Eyes: No: Sclera Icterus Cardiovascular: Yes: Regular Rate and Rhythm Gastrointestinal Inspection: No: Distention ...Auscultate: Yes: Normoactive Bowel Sounds ...Palpate: Yes: Tenderness (TTP RUQ, improved from yesterday) Labs: CBC, BMP 06/16/17 06:00 06/16/17 06:00 INR, PTT INR 0.96 (0.82-1.09) 06/09/17 17:25 Hepatic Panel Total Bilirubin 0.6 mg/dL (0.2-1.0) 06/16/17 06:00 Direct Bilirubin 0.3 mg/dL (0.0-0.2) H 06/15/17 17:20 AST 39 U/L (15-37) H 06/16/17 06:00 ALT 62 U/L (12-78) 06/16/17 06:00 Alkaline Phosphatase 114 U/L (45-117) 06/16/17 06:00 Albumin 2.4 g/dl (3.4-5.0) L 06/16/17 06:00 Problem List - Problems (1) Choledocholithiasis with obstruction Assessment/Plan: S/P ERCP, stones extraction with CBD stent Stent removal in 2-3 months F/U w/ Dr. Best in office Code(s): K80.51 - CALCULUS OF BILE DUCT W/O CHOLANGITIS OR CHOLECYST W OBST Qualifiers: Cholecystitis presence: with cholecystitis Cholecystitis acuity: acute and chronic Qualified Code(s): K80.47 - Calculus of bile duct with acute and chronic cholecystitis with obstruction (2) Cholecystitis Assessment/Plan: Per surgery no surgery now Per IR no perc drain at this time Being treated conservtively with PO abx and outpatient follow-up w/ Dr. Renzo Lowery / [place] Code(s): K81.9 - CHOLECYSTITIS, UNSPECIFIED
[2017-06-17] MEDS: CYANOCOBALAMIN 1,000 MCG TABLET (FP) PO SCH (12:00)
[2017-06-17] MEDS: CARVEDILOL 3.125 MG TABLET (FP) PO SCH ×2 (12:00→22:55)
[2017-06-17] MEDS: LEVOFLOXACIN 500 MG IVPB 100 ML IVPB SCH (12:01)
[2017-06-17] MEDS: LOSARTAN POTASSIUM 50 MG TABLET (FP) PO SCH (12:01)
[2017-06-17] MEDS: SOLIFENACIN SUCCINATE 5 MG TAB (FP) PO SCH (12:02)
[2017-06-17] MEDS: ENOXAPARIN NA (PORCINE) 40 MG/0.4 ML DISP.SYRIN SQ SCH (12:03)
[2017-06-17] MEDS: POLYETHYLENE GLYCOL 3350 119 GM BTL PO SCH ×2 (12:10→22:56)
--- NOTE | 2017-06-17 13:44 | PN ---
Progress Note, Physician History of Present Illness: Pt seen and examined at bedside. She is awake and alert. Pt is tolerating diet. - Current Medication List Current Medications: Active Medications Acetaminophen (Tylenol -) 500 mg PO TID PRN PRN Reason: pain/fever Last Admin: 06/11/17 13:00 Dose: 500 mg Albuterol Sulfate (Ventolin 0.083% Nebulizer Soln -) 1 amp NEB QIDR [facility] Last Admin: 06/17/17 11:55 Dose: 1 amp Carvedilol (Coreg -) 3.125 mg PO BID [facility] Last Admin: 06/17/17 12:00 Dose: 3.125 mg Cyanocobalamin (Vitamin B12 -) 1,000 mcg PO DAILY [facility] Last Admin: 06/17/17 12:00 Dose: 1,000 mcg Enoxaparin Sodium (Lovenox -) 40 mg SQ DAILY [facility] Last Admin: 06/17/17 12:03 Dose: 40 mg Ergocalciferol (Drisdol -) 50,000 unit PO Johnston@10 [facility] Last Admin: 06/14/17 09:54 Dose: 50,000 unit Metronidazole (Flagyl 500mg Premixed Ivpb -) 100 mls @ 100 mls/hr IVPB Q8H-IV [facility] Last Admin: 06/17/17 11:56 Dose: 100 mls/hr Levofloxacin (Levaquin 500 Mg Premixed Ivpb -) 100 mls @ 100 mls/hr IVPB DAILY [facility] Last Admin: 06/17/17 12:01 Dose: 100 mls/hr Losartan Potassium (Cozaar -) 50 mg PO DAILY [facility] Last Admin: 06/17/17 12:01 Dose: 50 mg Non-Formulary Medication (Mirabegron [Myrbetriq]) 25 mg PO DAILY [facility] Polyethylene Glycol (Miralax (For Daily Use) -) 17 gm PO BID [facility] Last Admin: 06/17/17 12:10 Dose: 17 grams Solifenacin (Vesicare -) 5 mg PO DAILY [facility] Last Admin: 06/17/17 12:02 Dose: 5 mg - Objective Vital Signs: Vital Signs Temperature 99.1 F 06/17/17 09:45 Pulse Rate 54 L 06/17/17 09:45 Respiratory Rate 20 06/17/17 09:45 Blood Pressure 157/67 06/17/17 09:45 O2 Sat by Pulse Oximetry (%) 96 06/16/17 21:00 Constitutional: Yes: Calm Eyes: Yes: Conjunctiva Clear HENT: Yes: Atraumatic Cardiovascular: Yes: S1, S2 Respiratory: Yes: CTA Bilaterally Gastrointestinal: Yes: Soft Genitourinary: Yes: WNL Musculoskeletal: Yes: WNL Edema: No Neurological: Yes: Oriented Psychiatric: Yes: Oriented Labs: CBC, BMP 06/16/17 06:00 06/16/17 06:00 INR, PTT INR 0.96 (0.82-1.09) 06/09/17 17:25 Problem List - Problems (1) Hyperkalemia Code(s): E87.5 - HYPERKALEMIA (2) Renal insufficiency Code(s): N28.9 - DISORDER OF KIDNEY AND URETER, UNSPECIFIED (3) CHF exacerbation Code(s): I50.9 - HEART FAILURE, UNSPECIFIED Qualifiers: Congestive heart failure type: combined Qualified Code(s): I50.43 - Acute on chronic combined systolic (congestive) and diastolic (congestive) heart failure (4) Hypertension Code(s): I10 - ESSENTIAL (PRIMARY) HYPERTENSION Qualifiers: Hypertension type: essential hypertension Qualified Code(s): I10 - Essential (primary) hypertension Assessment/Plan Current Medications Generic Name Dose Route Start Last Admin Trade Name Freq PRN Reason Stop Dose Admin Acetaminophen 500 mg 06/09/17 22:14 06/11/17 13:00 Tylenol - PO 500 mg TID PRN Administration pain/fever Albuterol Sulfate 1 amp 06/10/17 00:00 06/17/17 11:55 Ventolin 0.083% Nebulizer Soln - NEB 1 amp QIDR [facility] Administration Carvedilol 3.125 mg 06/12/17 10:00 06/17/17 12:00 Coreg - PO 3.125 mg BID [facility] Administration Cyanocobalamin 1,000 mcg 06/10/17 10:00 06/17/17 12:00 Vitamin B12 - PO 1,000 mcg DAILY [facility] Administration Enoxaparin Sodium 40 mg 06/15/17 10:00 06/17/17 12:03 Lovenox - SQ 40 mg DAILY [facility] Administration Ergocalciferol 50,000 unit 06/14/17 10:00 06/14/17 09:54 Drisdol - PO 50,000 unit Johnston@10 [facility] Administration Metronidazole 100 mls @ 100 mls/hr 06/11/17 12:45 06/17/17 11:56 Flagyl 500mg Premixed Ivpb - IVPB 100 mls/hr Q8H-IV [facility] Administration Levofloxacin 100 mls @ 100 mls/hr 06/12/17 18:30 06/17/17 12:01 Levaquin 500 Mg Premixed Ivpb - IVPB 100 mls/hr DAILY [facility] Administration Losartan Potassium 50 mg 06/14/17 10:00 06/17/17 12:01 Cozaar - PO 50 mg DAILY [facility] Administration Non-Formulary Medication 25 mg 06/10/17 10:00 Mirabegron [Myrbetriq] PO DAILY [facility] Polyethylene Glycol 17 gm 06/15/17 14:30 06/17/17 12:10 Miralax (For Daily Use) - PO 17 grams BID [facility] Administration Solifenacin 5 mg 06/10/17 10:00 06/17/17 12:02 Vesicare - PO 5 mg DAILY [facility] Administration Impression 1. RAYO 2. hyperkalemia 3. CAD 4. HTN 5. CHF 6. dementia 7. coledocholithiasis Plan - labs reviewed - discussed with medical attending - will resume diuretics - will need to monitor labs and volume status - will follow PRN - cont current meds Dr Holly
--- NOTE | 2017-06-17 14:10 | DS ---
Physical Exam: SUBJECTIVE: Patient seen and examined at bedside. Pt has no complaint today. No other complaints. No fever, dizziness, diarrhea, dysuria. OBJECTIVE: Vital Signs Period Temp Pulse Resp BP Sys/Savage Pulse Ox Last 24 Hr 98.5 F-99.8 F 50-63 18-20 106-157/62-82 96 PHYSICAL EXAM GENERAL: The patient is awake, alert, and oriented x2, in no acute distress. HEAD: Normal with no signs of trauma. EYES: sclera anicteric, conjunctiva clear. No ptosis. ENT: oropharynx clear without exudates, moist mucous membranes. NECK: Trachea midline, full range of motion, supple. LUNGS: Breath sounds equal, clear to auscultation bilaterally, no wheezes, no crackles, no accessory muscle use. HEART: Regular rate and rhythm, normal S1, S2 without murmur, rub or gallop. ABDOMEN: Soft, No RUQ tenderness today, nondistended, normoactive bowel sounds, guarding, no rebound, no hepatosplenomegaly, no masses. EXTREMITIES: 2+ pulses, warm, well-perfused, no edema. NEUROLOGICAL: Cranial nerves II through XII grossly intact. Normal speech, gait not observed. PSYCH: Normal mood, normal affect. SKIN: Warm, dry, normal turgor, no rashes or lesions noted LABS Laboratory Results - last 24 hr 06/17/17 06/17/17 05:48 12:39 POC Glucometer 99 152 HOSPITAL COURSE: Date of Admission:06/09/17 Date of Discharge: 06/17/17 87yo Chinese-speaking F from [facility] with h/o dementia, CHF , HTN, diabetes, vertigo admitted to [facility] inpatient for hyperkalemia with possible EKG changes and altered mentation with baseline unknown. Head CT neg for acute pathology; CXR moderate congestion; K 6.3 Pt was given kayexelate which resolved the high K. In hospital, pt developed abdominal pain. Abd U/S revealed dilated CBD. HIDA scan was done and showed hepatobiliary disease. MRCP was ordered and showed choledocolithiasis with multiple large stones. Pt's liver enzymes suddenly became elevated, and the patient was taken for urgent ERCP with stent placement. The patient tolerated the procedure well and abdominal pain improved. The patient was given instructions to follow up with Dr. Best as an outpatient for assessment and removal of her stent.Surgery was consulted for cholecystectomy, but surg determined that surgery would be high risk at this time. Instead, they prefer to have the patient go home and come to the office as an outpt. Per ID, the patient is being sent out with 1 week of Abx. She should follow up with her PCP and with surg. During her stay, the patient also developed RAYO. Nephrology was consulted, and her renal function was normalized. In the hospital, the patient was seen by cardiology for possible ekg changes on admission and possible CHF. The EKG changes were determined to be a return to baseline. Cardiology also helped with optimization of her medications. #Cholelithiasis -ERCP for choledocholithiasis last week. stent in place -pt on flagyl and levaquin. per ID recs for duration will depend on plan regarding surgery -GI approached IR today about placing a drain. It was not placed because of concern over the patient's mental status and likelihood that she would pull the drain out. GI spoke with surgery, who plan to see the patient today and determine a plan for advancing diet and/or surgery. -Per cardio, no absolute contraindication to cholecystectomy #Constipation x4d -per GI, miralax given -dolculax #Choledocholithiasis: Resolved by ERCP -No signs of pancreatitis -will stop monitoring lipase # RAYO: Stable -Stopped ARB and aldactone -Renally dosed Mirabegron down to 25mg -Nephro consultation -Avoid nephrotoxins #Fluid status -Pt not in CHF. No JVD, crackles, pedal edema -repeat CXR looks improved #Cards consult -ASA -resume Losartan once stable -consider carvedilol once stable #FEN - not on fluids - lytes wnl - diabetic diet PPX: DVT: Heparin 5000 SQ q8 GI: Not indicated at current time Dispo: Admit to tele inpatient Jose Luis Bradshaw MD PGY-1 Minutes to complete discharge: 45 Discharge Summary Reason For Visit: RENAL INSUFF/SINUS BRADYCARD/HEADACHE Current Active Problems Abdominal pain (Acute) Acute electrocardiogram changes (Acute) Cholangitis due to bile duct calculus with obstruction (Acute) Cholecystitis (Acute) Choledocholithiasis with obstruction (Acute) Cholelithiasis and acute cholecystitis with obstruction (Acute) Headache (Acute) Hyperglycemia (Acute) Hyperkalemia (Acute) Jaundice with stoppage of bile flow (Acute) Renal insufficiency (Acute) Sinus bradycardia (Acute) Vertigo (Acute) - Instructions Diet, Activity, Other Instructions: You need to follow up with your doctors: -You have an appointment for Thu with Dr. Jeffrey or Dr. Lowery. Contact information will be in your discharge packet. -You need to follow up with Dr. Valdez, gastroenterology -You need to follow up with Dr. Holly, nephrology - It is important to follow with Dr. Best. You had a stent placed in your biliary tree in your belly. Please see him in 1 month to evaluate for removal. Your potassium was high. It was corrected, but you need to follow up with your primary care doctor to have this checked. -You are being sent home with Aspirin. You need to stop taking aspirin 5 days before any procedure. Low Fat diet, complete the antibiotics, follow with the surgeon , an appointment has been made with on 06/22/2017 Referrals: Kristina Burrell MD [Staff Physician] - 1 Week Claudette Franco MD [Primary Care Provider] - 1 Week Florian Best MD [Staff Physician] - Renzo Lowery MD [Staff Physician] - 1 Week (An Appointment is given on 06/22/2017. ) Sukh Holly MD [Staff Physician] - 1 Week Juan Jeffrey MD [Staff Physician] - 1 Week [facility]position: [facility] - Home Medications Comprehensive Discharge Medication List: Ambulatory Orders Cyanocobalamin [Vitamin B12 -] 1,000 mcg PO DAILY 05/18/16 Mirabegron [Myrbetriq] 50 mg PO DAILY 05/18/16 Aspirin [ASA -] 81 mg PO DAILY tab.chew 05/23/16 Sennosides [Senna -] 2 tab PO DAILY 06/09/17 Carvedilol [Coreg -] 3.125 mg PO BID tablet 06/17/17 Cholecalciferol (Vitamin D3) [Decara] 25,000 unit PO WEEKLY #4 capsule 06/17/17 Levofloxacin [Levaquin] 500 mg PO DAILY #7 tablet 06/17/17 Losartan Potassium [Cozaar -] 50 mg PO DAILY tablet 06/17/17 Metronidazole [Flagyl -] 500 mg PO TID #21 tablet 06/17/17 Spironolactone [Aldactone] 12.5 mg PO DAILY #30 tablet 06/17/17 - Discharge Referral Referred to [facility] No
[2017-06-18] MEDS: ALBUTEROL SO4 0.083% IH SOL 2.5 MG/3 ML VIAL.NEB. NEB SCH ×5 (00:42→23:04)
[2017-06-18] MEDS: METRONIDAZOLE 500 MG PREMIXED 100 ML IVPB SCH ×3 (02:33→22:43)
[2017-06-18] MEDS ORDERED: PT OWN MED DRAWER 7, Y5N ONE (10:39)
[2017-06-18] MEDS: LEVOFLOXACIN 500 MG IVPB 100 ML IVPB SCH (10:43)
[2017-06-18] MEDS: SOLIFENACIN SUCCINATE 5 MG TAB (FP) PO SCH (10:53)
[2017-06-18] MEDS: CYANOCOBALAMIN 1,000 MCG TABLET (FP) PO SCH (10:53)
[2017-06-18] MEDS: ENOXAPARIN NA (PORCINE) 40 MG/0.4 ML DISP.SYRIN SQ SCH (10:53)
[2017-06-18] MEDS: POLYETHYLENE GLYCOL 3350 119 GM BTL PO SCH ×2 (10:54→22:42)
[2017-06-18] MEDS: LOSARTAN POTASSIUM 50 MG TABLET (FP) PO SCH (10:55)
--- NOTE | 2017-06-18 11:01 | PN ---
Progress Note, Physician History of Present Illness: No complaints, asymptomatic braydcardia. - Current Medication List Current Medications: Active Medications Acetaminophen (Tylenol -) 500 mg PO TID PRN PRN Reason: pain/fever Last Admin: 06/11/17 13:00 Dose: 500 mg Albuterol Sulfate (Ventolin 0.083% Nebulizer Soln -) 1 amp NEB QIDR [facility] Last Admin: 06/18/17 07:22 Dose: Not Given Carvedilol (Coreg -) 3.125 mg PO BID [facility] Last Admin: 06/17/17 22:55 Dose: 3.125 mg Cyanocobalamin (Vitamin B12 -) 1,000 mcg PO DAILY [facility] Last Admin: 06/18/17 10:53 Dose: 1,000 mcg Enoxaparin Sodium (Lovenox -) 40 mg SQ DAILY [facility] Last Admin: 06/18/17 10:53 Dose: Not Given Ergocalciferol (Drisdol -) 50,000 unit PO Johnston@10 [facility] Last Admin: 06/14/17 09:54 Dose: 50,000 unit Metronidazole (Flagyl 500mg Premixed Ivpb -) 100 mls @ 100 mls/hr IVPB Q8H-IV [facility] Last Admin: 06/18/17 02:33 Dose: 100 mls/hr Levofloxacin (Levaquin 500 Mg Premixed Ivpb -) 100 mls @ 100 mls/hr IVPB DAILY [facility] Last Admin: 06/18/17 10:43 Dose: 100 mls/hr Losartan Potassium (Cozaar -) 50 mg PO DAILY [facility] Last Admin: 06/17/17 12:01 Dose: 50 mg Non-Formulary Medication (Mirabegron [Myrbetriq]) 25 mg PO DAILY [facility] Polyethylene Glycol (Miralax (For Daily Use) -) 17 gm PO BID [facility] Last Admin: 06/18/17 10:54 Dose: 17 grams Solifenacin (Vesicare -) 5 mg PO DAILY [facility] Last Admin: 06/18/17 10:53 Dose: 5 mg - Objective Vital Signs: Vital Signs Temperature 98.5 F 06/18/17 06:20 Pulse Rate 45 L 06/18/17 06:20 Respiratory Rate 18 06/18/17 06:20 Blood Pressure 144/52 06/18/17 06:20 O2 Sat by Pulse Oximetry (%) 97 06/17/17 21:00 Constitutional: Yes: No Distress, Calm Neck: Yes: Supple Cardiovascular: Yes: Bradycardia Respiratory: Yes: Regular, Diminished Gastrointestinal: Yes: Normal Bowel Sounds Edema: No Labs: CBC, BMP 06/16/17 06:00 06/16/17 06:00 INR, PTT INR 0.96 (0.82-1.09) 06/09/17 17:25 Problem List - Problems (1) Cholangitis due to bile duct calculus with obstruction Code(s): K80.31 - CALCULUS OF BILE DUCT W CHOLANGITIS, UNSP, WITH OBSTRUCTION (2) Hypertension Code(s): I10 - ESSENTIAL (PRIMARY) HYPERTENSION Qualifiers: Hypertension type: essential hypertension Qualified Code(s): I10 - Essential (primary) hypertension (3) Choledocholithiasis with obstruction Code(s): K80.51 - CALCULUS OF BILE DUCT W/O CHOLANGITIS OR CHOLECYST W OBST Qualifiers: Cholecystitis presence: with cholecystitis Cholecystitis acuity: acute and chronic Qualified Code(s): K80.47 - Calculus of bile duct with acute and chronic cholecystitis with obstruction (4) Cholelithiasis and acute cholecystitis with obstruction Code(s): K80.01 - CALCULUS OF GALLBLADDER W ACUTE CHOLECYSTITIS W OBSTRUCTION Assessment/Plan 1. Choledocholithiasis, with ascending cholanangitis post ERCP for future cholecystectomy 2. Post acute renal insufficiency with hyperkalemia, resolved hyperkalemia 3. Coronary artery disease angina pectoris, stable EKG changes pseudo- normalization of anterior T-wave abnormality 4. 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 HTN 6. Organic brain syndrome/dementia 7. Anemia 8. Asymptomatic bradycardia PLAN: 1. Decrease Coreg 3.125 qd as hemodynamics permitting 2. Continue Cozaar 50 qd with close monitoring of renal function 3. Aldactone to be resumed gradually with monitor renal function and electrolytes 4. Complete Antibiotics course per the primary team 5. As outlined in prior notes there are no absolute contraindications in proceeding with the above planned cholecystectomy considering that there is no clinical evidence of acute coronary syndrome and/or decompensated congestive heart failure and/or malignant sustained ventricular arrhythmia 6. D/c planning
[2017-06-18] MEDS: CARVEDILOL 3.125 MG TABLET (FP) PO SCH (11:07)
--- NOTE | 2017-06-18 12:11 | PN ---
GI Progress Note Subjective: Advised by house staff patient c/o worsening pain today Refusing blood draws - Objective Vital Signs: Vital Signs Temperature 98.5 F 06/18/17 06:20 Pulse Rate 45 L 06/18/17 06:20 Respiratory Rate 18 06/18/17 06:20 Blood Pressure 144/52 06/18/17 06:20 O2 Sat by Pulse Oximetry (%) 97 06/17/17 21:00 Constitutional: Calm Eyes: No: Sclera Icterus Gastrointestinal Inspection: No: Distention ...Auscultate: Yes: Normoactive Bowel Sounds ...Palpate: Yes: Tenderness (TTP RUQ, more pronounced from yesterday) Neurological: Yes: Alert Labs: CBC, BMP 06/16/17 06:00 06/16/17 06:00 INR, PTT INR 0.96 (0.82-1.09) 06/09/17 17:25 Problem List - Problems (1) Choledocholithiasis with obstruction Assessment/Plan: S/P ERCP with stent placement Code(s): K80.51 - CALCULUS OF BILE DUCT W/O CHOLANGITIS OR CHOLECYST W OBST Qualifiers: Cholecystitis presence: with cholecystitis Cholecystitis acuity: acute and chronic Qualified Code(s): K80.47 - Calculus of bile duct with acute and chronic cholecystitis with obstruction (2) Cholecystitis Assessment/Plan: Worsened pain today Advised housestaff: NPO CT scan abdomen CBC/CMP/Amylase/Lipase Recall surgery to reevaluate ID f/u Code(s): K81.9 - CHOLECYSTITIS, UNSPECIFIED
--- NOTE | 2017-06-18 12:57 | PN ---
Physical Exam: SUBJECTIVE: Patient seen and examined at bedside. Pt has no complaints at this time. No acute events overnight. OBJECTIVE: Vital Signs Period Temp Pulse Resp BP Sys/Savage Pulse Ox Last 24 Hr 98 F-99.5 F 45-55 18-20 108-159/52-63 97 GENERAL: The patient is awake, alert, and fully oriented, in no acute distress. HEAD: Normal with no signs of trauma. EYES: sclera anicteric, conjunctiva clear. No ptosis. ENT: Ears normal, nares patent, oropharynx clear without exudates, moist mucous membranes. NECK: Trachea midline, full range of motion, supple. LUNGS: Breath sounds equal, clear to auscultation bilaterally, no wheezes, no crackles, no accessory muscle use. HEART: Regular rate and rhythm, S1, S2 without murmur, rub or gallop. ABDOMEN: Soft, no tenderness to palpation, canseco's sign negative, nondistended , normoactive bowel sounds, no guarding, no rebound, no hepatosplenomegaly, no masses. EXTREMITIES: 2+ pulses, warm, well-perfused, no edema. NEUROLOGICAL: Cranial nerves II through XII grossly intact. Normal speech, gait not observed. PSYCH: Normal mood, normal affect. SKIN: Warm, dry, normal turgor, no rashes or lesions noted Laboratory Results - last 24 hr 06/17/17 06/18/17 12:39 06:17 POC Glucometer 152 103 Active Medications Generic Name Dose Route Start Last Admin Trade Name Freq PRN Reason Stop Dose Admin Acetaminophen 500 mg 06/09/17 22:14 06/11/17 13:00 Tylenol - PO 500 mg TID PRN Administration pain/fever Albuterol Sulfate 1 amp 06/10/17 00:00 06/18/17 11:00 Ventolin 0.083% Nebulizer Soln - NEB Not Given QIDR [facility]ENN[facility] Carvedilol 3.125 mg 06/19/17 10:00 Coreg - PO DAILY [facility] Cyanocobalamin 1,000 mcg 06/10/17 10:00 06/18/17 10:53 Vitamin B12 - PO 1,000 mcg DAILY [facility] Administration Ergocalciferol 50,000 unit 06/14/17 10:00 06/14/17 09:54 Drisdol - PO 50,000 unit Johnston@10 [facility] Administration Metronidazole 100 mls @ 100 mls/hr 06/11/17 12:45 06/18/17 12:26 Flagyl 500mg Premixed Ivpb - IVPB 100 mls/hr Q8H-IV [facility] Administration Levofloxacin 100 mls @ 100 mls/hr 06/12/17 18:30 06/18/17 10:43 Levaquin 500 Mg Premixed Ivpb - IVPB 100 mls/hr DAILY [facility] Administration Losartan Potassium 50 mg 06/14/17 10:00 06/18/17 10:55 Cozaar - PO 50 mg DAILY [facility] Administration Non-Formulary Medication 25 mg 06/10/17 10:00 Mirabegron [Myrbetriq] PO DAILY [facility] Polyethylene Glycol 17 gm 06/15/17 14:30 06/18/17 10:54 Miralax (For Daily Use) - PO 17 grams BID [facility] Administration Solifenacin 5 mg 06/10/17 10:00 06/18/17 10:53 Vesicare - PO 5 mg DAILY [facility] Administration ASSESSMENT/PLAN: 87yo Mozambican-speaking F from [facility] with h/o dementia, CHF , HTN, diabetes, vertigo admitted to [facility] inpatient for hyperkalemia with possible EKG changes and altered mentation with baseline unknown. Head CT neg for acute pathology; CXR moderate congestion; K 6.3 #Cholelithiasis -ERCP for choledocholithiasis last week. stent in place -pt on flagyl and levaquin. per ID recs for duration will depend on plan regarding surgery -per IR no drain. It was not placed because of concern over the patient's mental status and likelihood that she would pull the drain out. GI spoke with surgery, who saw the patient today and determined a plan for advancing diet and/ or surgery. -Per cardio, no absolute contraindication to cholecystectomy -per surgery, it would be better to wait and do the cholecystectomy out patient once her inflammation subsides. #Constipation x4d -per GI, miralax given -dolculax -pending bm #Choledocholithiasis: Resolved by ERCP -No signs of pancreatitis -will stop monitoring lipase # RAYO: Stable -Stopped ARB and aldactone -Renally dosed Mirabegron down to 25mg -Nephro consultation -Avoid nephrotoxins #Fluid status -Pt not in CHF. No JVD, crackles, pedal edema -repeat CXR looks improved #Cards consult -ASA -resume Losartan once stable -consider carvedilol once stable #FEN - not on fluids - lytes wnl - diabetic diet PPX: DVT: on lovenox GI: Not indicated at current time Dispo: Admit to tele inpatient Jose Luis Bradshaw MD PGY-1 Visit type - Emergency Visit Emergency Visit: No - New Patient This patient is new to me today: No - Critical Care Critical Care patient: No - Discharge Referral Referred to [facility] No
[2017-06-18 13:12] LABS: BASOPHIL 0.6 % (0-2.0); EOSINOPHIL 2.4 % (0-4.5); MCH 33.7 pg (25.7-33.7); MEAN CELL VOLUME 99.2 fl (80-96); MEAN PLT VOLUME 8.8 fl (7.5-11.1); NEUTROPHILS 63.6 % (42.8-82.8); PLATELET COUNT 236 K/MM3 (134-434); RDW 13.7 % (11.6-15.6); WHITE BLOOD COUNT 5.6 K/mm3 (4.0-10.0)
[2017-06-18 13:42] LABS: ALBUMIN 2.6 g/dl (3.4-5.0); ALK PHOS 101 U/L (45-117); ANION GAP 6 (8-16); BILIRUBIN,TOTAL 0.4 mg/dL (0.2-1.0); CALCIUM 8.1 mg/dL (8.5-10.1); CO2 31 mmol/L (21-32); CREATININE 0.6 mg/dL (0.55-1.02); GLUCOSE,RANDOM 116 mg/dL (74-106); MAGNESIUM 1.9 mg/dL (1.8-2.4); PHOSPHOROUS 2.6 mg/dL (2.5-4.9); SGOT/AST 22 U/L (15-37); SGPT/ALT 39 U/L (12-78); TOT PROT 5.5 g/dl (6.4-8.2)
[2017-06-18 13:51] LABS: INR 1.1 (0.82-1.09); PROTHROMBIN TIME (PATIENT) 12.1 SEC (9.98-11.88)
[2017-06-18 14:00] LABS: AMYLASE 41 U/L (25-115)
--- NOTE | 2017-06-18 15:03 | PN ---
Progress Note, Physician History of Present Illness: Pt seen and examined at bedside. She is awake and alert. - Current Medication List Current Medications: Active Medications Acetaminophen (Tylenol -) 500 mg PO TID PRN PRN Reason: pain/fever Last Admin: 06/11/17 13:00 Dose: 500 mg Albuterol Sulfate (Ventolin 0.083% Nebulizer Soln -) 1 amp NEB QIDR [facility] Last Admin: 06/18/17 11:00 Dose: Not Given Carvedilol (Coreg -) 3.125 mg PO DAILY [facility] Cyanocobalamin (Vitamin B12 -) 1,000 mcg PO DAILY [facility] Last Admin: 06/18/17 10:53 Dose: 1,000 mcg Ergocalciferol (Drisdol -) 50,000 unit PO Johnston@10 [facility] Last Admin: 06/14/17 09:54 Dose: 50,000 unit Metronidazole (Flagyl 500mg Premixed Ivpb -) 100 mls @ 100 mls/hr IVPB Q8H-IV [facility] Last Admin: 06/18/17 12:26 Dose: 100 mls/hr Levofloxacin (Levaquin 500 Mg Premixed Ivpb -) 100 mls @ 100 mls/hr IVPB DAILY [facility] Last Admin: 06/18/17 10:43 Dose: 100 mls/hr Losartan Potassium (Cozaar -) 50 mg PO DAILY [facility] Last Admin: 06/18/17 10:55 Dose: 50 mg Non-Formulary Medication (Mirabegron [Myrbetriq]) 25 mg PO DAILY [facility] Polyethylene Glycol (Miralax (For Daily Use) -) 17 gm PO BID [facility] Last Admin: 06/18/17 10:54 Dose: 17 grams Solifenacin (Vesicare -) 5 mg PO DAILY [facility] Last Admin: 06/18/17 10:53 Dose: 5 mg - Objective Vital Signs: Vital Signs Temperature 98.4 F 06/18/17 13:32 Pulse Rate 45 L 06/18/17 13:32 Respiratory Rate 20 06/18/17 13:32 Blood Pressure 168/65 06/18/17 13:32 O2 Sat by Pulse Oximetry (%) 97 06/17/17 21:00 Constitutional: Yes: Calm Eyes: Yes: Conjunctiva Clear HENT: Yes: Atraumatic Neck: Yes: Supple Cardiovascular: Yes: S1, S2 Respiratory: Yes: CTA Bilaterally Gastrointestinal: Yes: Soft Genitourinary: Yes: WNL Musculoskeletal: Yes: WNL Edema: No Neurological: Yes: Oriented Psychiatric: Yes: Oriented Labs: CBC, BMP 06/18/17 12:50 06/18/17 12:50 INR, PTT INR 0.96 (0.82-1.09) 06/09/17 17:25 Problem List - Problems (1) Hyperkalemia Code(s): E87.5 - HYPERKALEMIA (2) Renal insufficiency Code(s): N28.9 - DISORDER OF KIDNEY AND URETER, UNSPECIFIED (3) CHF exacerbation Code(s): I50.9 - HEART FAILURE, UNSPECIFIED Qualifiers: Congestive heart failure type: combined Qualified Code(s): I50.43 - Acute on chronic combined systolic (congestive) and diastolic (congestive) heart failure (4) Hypertension Code(s): I10 - ESSENTIAL (PRIMARY) HYPERTENSION Qualifiers: Hypertension type: essential hypertension Qualified Code(s): I10 - Essential (primary) hypertension Assessment/Plan Current Medications Generic Name Dose Route Start Last Admin Trade Name Freq PRN Reason Stop Dose Admin Acetaminophen 500 mg 06/09/17 22:14 06/11/17 13:00 Tylenol - PO 500 mg TID PRN Administration pain/fever Albuterol Sulfate 1 amp 06/10/17 00:00 06/18/17 11:00 Ventolin 0.083% Nebulizer Soln - NEB Not Given QIDR [facility] Carvedilol 3.125 mg 06/19/17 10:00 Coreg - PO DAILY [facility] Cyanocobalamin 1,000 mcg 06/10/17 10:00 06/18/17 10:53 Vitamin B12 - PO 1,000 mcg DAILY [facility] Administration Ergocalciferol 50,000 unit 06/14/17 10:00 06/14/17 09:54 Drisdol - PO 50,000 unit Johnston@10 [facility] Administration Metronidazole 100 mls @ 100 mls/hr 06/11/17 12:45 06/18/17 12:26 Flagyl 500mg Premixed Ivpb - IVPB 100 mls/hr Q8H-IV [facility] Administration Levofloxacin 100 mls @ 100 mls/hr 06/12/17 18:30 06/18/17 10:43 Levaquin 500 Mg Premixed Ivpb - IVPB 100 mls/hr DAILY [facility] Administration Losartan Potassium 50 mg 06/14/17 10:00 06/18/17 10:55 Cozaar - PO 50 mg DAILY [facility] Administration Non-Formulary Medication 25 mg 06/10/17 10:00 Mirabegron [Myrbetriq] PO DAILY [facility] Polyethylene Glycol 17 gm 06/15/17 14:30 06/18/17 10:54 Miralax (For Daily Use) - PO 17 grams BID [facility] Administration Solifenacin 5 mg 06/10/17 10:00 06/18/17 10:53 Vesicare - PO 5 mg DAILY [facility] Administration Impression 1. RAYO 2. hyperkalemia 3. CAD 4. HTN 5. CHF 6. dementia 7. coledocholithiasis Plan - renal function stable - can resume home meds - discussed with medical team - will follow PRN - cont current meds Dr Holly
[2017-06-18] MEDS ORDERED: PROPOFOL 20 ML ONE (17:15)
[2017-06-18] MEDS ORDERED: SUCCINYLCHOLINE CHLORIDE 200 MG/10 ML VIAL ONE (17:16)
[2017-06-18] MEDS ORDERED: ROCURONIUM BROMIDE 50 MG/5 ML VIAL ONE (17:16)
[2017-06-18] MEDS ORDERED: HYDROmorphone HCL/PF 1 MG/ML VIAL (FOR PYXIS CHARGING ONLY) ONE ×2 (18:03→18:15)
--- NOTE | 2017-06-18 18:09 | PN ---
Teaching Attending Note Name of Resident: Jose Lusi Bradshaw ATTENDING PHYSICIAN STATEMENT I saw and evaluated the patient. I reviewed the resident's note and discussed the case with the resident. I agree with the resident's findings and plan as documented. SUBJECTIVE: Patient continues to have nausea and vomiting. OBJECTIVE: Vital Signs Temperature 98.4 F 06/18/17 13:32 Pulse Rate 45 L 06/18/17 13:32 Respiratory Rate 20 06/18/17 13:32 Blood Pressure 168/65 06/18/17 13:32 O2 Sat by Pulse Oximetry (%) 97 06/17/17 21:00 CBCD WBC 5.6 K/mm3 (4.0-10.0) 06/18/17 12:50 RBC 3.16 M/mm3 (3.60-5.2) L 06/18/17 12:50 Hgb 10.6 GM/dL (10.7-15.3) L 06/18/17 12:50 Hct 31.3 % (32.4-45.2) L 06/18/17 12:50 MCV 99.2 fl (80-96) H 06/18/17 12:50 MCHC 34.0 g/dl (32.0-36.0) 06/18/17 12:50 RDW 13.7 % (11.6-15.6) 06/18/17 12:50 Plt Count 236 K/MM3 (134-434) D 06/18/17 12:50 MPV 8.8 fl (7.5-11.1) 06/18/17 12:50 CMP Sodium 141 mmol/L (136-145) 06/18/17 12:50 Potassium 3.8 mmol/L (3.5-5.1) 06/18/17 12:50 Chloride 104 mmol/L (98-107) 06/18/17 12:50 Carbon Dioxide 31 mmol/L (21-32) 06/18/17 12:50 Anion Gap 6 (8-16) L 06/18/17 12:50 BUN 8 mg/dL (7-18) 06/18/17 12:50 Creatinine 0.6 mg/dL (0.55-1.02) 06/18/17 12:50 Creat Clearance w eGFR > 60 (>60) 06/18/17 12:50 Random Glucose 116 mg/dL (74-106) H D 06/18/17 12:50 Calcium 8.1 mg/dL (8.5-10.1) L 06/18/17 12:50 Total Bilirubin 0.4 mg/dL (0.2-1.0) D 06/18/17 12:50 AST 22 U/L (15-37) D 06/18/17 12:50 ALT 39 U/L (12-78) D 06/18/17 12:50 Alkaline Phosphatase 101 U/L (45-117) 06/18/17 12:50 Total Protein 5.5 g/dl (6.4-8.2) L 06/18/17 12:50 Albumin 2.6 g/dl (3.4-5.0) L 06/18/17 12:50 CARDIAC ENZYMES Creatine Kinase 47 IU/L (26-192) 06/09/17 17:25 Troponin I < 0.02 ng/ml (0.00-0.05) 06/09/17 23:10 Current Medications Generic Name Dose Route Start Last Admin Trade Name Sonia PRN Reason Stop Dose Admin Acetaminophen 500 mg 06/09/17 22:14 06/11/17 13:00 Tylenol - PO 500 mg TID PRN Administration pain/fever Albuterol Sulfate 1 amp 06/10/17 00:00 06/18/17 17:58 Ventolin 0.083% Nebulizer Soln - NEB Not Given QIDR [facility] Carvedilol 3.125 mg 06/19/17 10:00 Coreg - PO DAILY [facility] Cyanocobalamin 1,000 mcg 06/10/17 10:00 06/18/17 10:53 Vitamin B12 - PO 1,000 mcg DAILY [facility] Administration Ergocalciferol 50,000 unit 06/14/17 10:00 06/14/17 09:54 Drisdol - PO 50,000 unit Johnston@10 [facility] Administration Metronidazole 100 mls @ 100 mls/hr 06/11/17 12:45 06/18/17 12:26 Flagyl 500mg Premixed Ivpb - IVPB 100 mls/hr Q8H-IV [facility] Administration Levofloxacin 100 mls @ 100 mls/hr 06/12/17 18:30 06/18/17 10:43 Levaquin 500 Mg Premixed Ivpb - IVPB 100 mls/hr DAILY [facility] Administration Losartan Potassium 50 mg 06/14/17 10:00 06/18/17 10:55 Cozaar - PO 50 mg DAILY [facility] Administration Non-Formulary Medication 25 mg 06/10/17 10:00 Mirabegron [Myrbetriq] PO DAILY [facility] Polyethylene Glycol 17 gm 06/15/17 14:30 06/18/17 10:54 Miralax (For Daily Use) - PO 17 grams BID [facility] Administration Solifenacin 5 mg 06/10/17 10:00 06/18/17 10:53 Vesicare - PO 5 mg DAILY [facility] Administration Home Medications Medication Instructions Recorded Cyanocobalamin [Vitamin B12 -] 1,000 mcg PO DAILY 05/18/16 Mirabegron [Myrbetriq] 50 mg PO DAILY 05/18/16 Aspirin [ASA -] 81 mg PO DAILY tab.chew 05/23/16 Sennosides [Senna -] 2 tab PO DAILY 06/09/17 Cholecalciferol (Vitamin D3) 25,000 unit PO WEEKLY #4 capsule 06/17/17 [Decara] Levofloxacin [Levaquin] 500 mg PO DAILY #7 tablet 06/17/17 Losartan Potassium [Cozaar -] 50 mg PO DAILY tablet 06/17/17 Metronidazole [Flagyl -] 500 mg PO TID #21 tablet 06/17/17 Spironolactone [Aldactone] 12.5 mg PO DAILY #30 tablet 06/17/17 Carvedilol [Coreg -] 3.125 mg PO DAILY #1 tablet 06/18/17 Abdomen: Positive for tenderness on deep palpation of RUQ area. positive BS. ASSESSMENT AND PLAN: 87 y/o lady with h/o chronic systolic heart failure , DM , HTN, and dementia who presented with AMS , was found to have hyperkalemia and RAYO. # Acute cholecystitis Choledocolithiasis with Ascending cholangitis: s/p urgent ERCP 06/12 s/p stent , CBD stones removed follow with Dr. Best as out pt for stent removal after CCY, patient is going to OR , discussed with Dr. Nolan Lowery, will operate on her today. # RAYO : resolved , patient is being placed back on Lasix 40mg po 2x per week will continue upon discharge and Spironolactone 12.5mg daily discussed with agrees with the plan. # H/o CHF : No acute decompensation cont carvedolol , ARB , lasic and spirinolactone # HTN: continue ARB . Coreg NPO for now for surgery
[2017-06-18] MEDS ORDERED: DEXAMETHASONE SOD PHOSPHATE 4 MG/1 ML VIAL ONE (18:15)
[2017-06-18] MEDS ORDERED: NEOSTIGMINE METHYLSULFATE 0.5 MG/ML - 10 ML MDV ONE (18:45)
[2017-06-18] MEDS ORDERED: GLYCOPYRROLATE 0.2 MG/1 ML VIAL ONE (18:45)
[2017-06-18] MEDS ORDERED: ONDANSETRON 4 MG/2 ML VIAL IVPUSH PRN (19:19)
[2017-06-18] MEDS ORDERED: LABETALOL HCL 5 MG/1 ML (100MG/20 ML VIAL) IVPUSH ONE ×2 (19:20→19:24)
[2017-06-18] MEDS ORDERED: ACETAMINOPHEN 1000 MG/100 ML VIAL (NON FORMULARY) IVPB PRN (19:23)
[2017-06-18] MEDS ORDERED: ACETAMINOPHEN 500 MG TABLET (FP) PO PRN (20:51)
[2017-06-18] MEDS ORDERED: morphine CARPU-JECT 4 MG/1 ML DISP.SYRIN IVPB PRN ×2 (22:35)
[2017-06-18] MEDS: PATIENT'S OWN MEDICATION (NON-FORMULARY) (Mirabegron [Myrbetriq] 25 MG) PO SCH (22:42)
[2017-06-18] MEDS ORDERED: D5-1/2NS+20 MEQ KCL - 1,000 ML IV SCH (22:45)
[2017-06-18] MEDS: FAMOTIDINE 20 MG/50 ML IVPB 50 ML IVPB SCH (22:56)
[2017-06-18] MEDS ORDERED: ENALAPRILAT DIHYDRATE 2.5 MG/2 ML VIAL IVPB ONE (23:18)
[2017-06-19] MEDS: METRONIDAZOLE 500 MG PREMIXED 100 ML IVPB SCH ×2 (01:31→09:05)
[2017-06-19] MEDS: ALBUTEROL SO4 0.083% IH SOL 2.5 MG/3 ML VIAL.NEB. NEB SCH ×4 (05:55→23:48)
[2017-06-19 07:44] LABS: BASOPHIL 0.1 % (0-2.0); MCH 32.8 pg (25.7-33.7); MCHC 32.5 g/dl (32.0-36.0); MEAN PLT VOLUME 8.8 fl (7.5-11.1); NEUTROPHILS 91.8 % (42.8-82.8); PLATELET COUNT 251 K/MM3 (134-434); RDW 13.8 % (11.6-15.6); WHITE BLOOD COUNT 17.2 K/mm3 (4.0-10.0)
[2017-06-19 08:09] LABS: ANION GAP 7 (8-16); CALCIUM 8.1 mg/dL (8.5-10.1); CO2 26 mmol/L (21-32); CREATININE 0.9 mg/dL (0.55-1.02); GLUCOSE,RANDOM 191 mg/dL (74-106)
[2017-06-19] MEDS: FAMOTIDINE 20 MG/50 ML IVPB 50 ML IVPB SCH ×2 (09:02→22:14)
[2017-06-19] MEDS: ENOXAPARIN NA (PORCINE) 40 MG/0.4 ML DISP.SYRIN SQ SCH (09:05)
[2017-06-19] MEDS: LOSARTAN POTASSIUM 50 MG TABLET (FP) PO SCH (09:05)
[2017-06-19] MEDS: CARVEDILOL 3.125 MG TABLET (FP) PO SCH (09:05)
[2017-06-19] MEDS: CYANOCOBALAMIN 1,000 MCG TABLET (FP) PO SCH (09:05)
[2017-06-19] MEDS ORDERED: PT OWN MED DRAWER 7, Y5N ONE (09:06)
[2017-06-19] MEDS: SOLIFENACIN SUCCINATE 5 MG TAB (FP) PO SCH (09:07)
[2017-06-19] MEDS: POLYETHYLENE GLYCOL 3350 119 GM BTL PO SCH ×2 (09:15→22:21)
--- NOTE | 2017-06-19 09:16 | PN ---
Progress Note, Physician History of Present Illness: No complaints, post-lap cholecystectomy, tolerating clear liquid diet with resolved nausea and emesis. - Current Medication List Current Medications: Active Medications Acetaminophen (Ofirmev Injection -) 1,000 mg IVPB ONCE PRN PRN Reason: PAIN Acetaminophen (Tylenol -) 500 mg PO TID PRN PRN Reason: pain/fever Albuterol Sulfate (Ventolin 0.083% Nebulizer Soln -) 1 amp NEB [facility]R [facility] Last Admin: 06/19/17 05:55 Dose: Not Given Carvedilol (Coreg -) 3.125 mg PO DAILY [facility] Last Admin: 06/19/17 09:05 Dose: 3.125 mg Cyanocobalamin (Vitamin B12 -) 1,000 mcg PO DAILY [facility] Last Admin: 06/19/17 09:05 Dose: 1,000 mcg Enoxaparin Sodium (Lovenox -) 40 mg SQ DAILY [facility] Last Admin: 06/19/17 09:05 Dose: 40 mg Ergocalciferol (Drisdol -) 50,000 unit PO Johnston@10 [facility] Fentanyl (Sublimaze Injection -) 50 mcg IVPUSH [id number] PRN PRN Reason: PAIN Stop: 06/21/17 19:20 Metronidazole (Flagyl 500mg Premixed Ivpb -) 100 mls @ 100 mls/hr IVPB Q8H-IV [facility] Last Admin: 06/19/17 09:05 Dose: 100 mls/hr Levofloxacin (Levaquin 500 Mg Premixed Ivpb -) 100 mls @ 100 mls/hr IVPB DAILY [facility] Potassium Chloride/Dextrose/Sod Cl (D5-1/2ns+20 Meq Kcl -) 1,000 mls @ 100 mls/ hr IV ASDIR [facility] Last Admin: 06/18/17 21:00 Dose: 150 mls Famotidine/Sodium Chloride (Pepcid 20 Mg Premixed Ivpb -) 50 mls @ 100 mls/hr IVPB BID [facility] Last Admin: 06/19/17 09:02 Dose: 100 mls/hr Losartan Potassium (Cozaar -) 50 mg PO DAILY [facility] Last Admin: 06/19/17 09:05 Dose: 50 mg Morphine Sulfate (Morphine Injection -) 4 mg IVPB Q3H PRN PRN Reason: MODERATE PAIN Last Admin: 06/19/17 06:09 Dose: 4 mg Morphine Sulfate (Morphine Injection -) 6 mg IVPB Q3H PRN PRN Reason: SEVERE PAIN Polyethylene Glycol (Miralax (For Daily Use) -) 17 gm PO BID [facility] Last Admin: 06/19/17 09:15 Dose: Not Given Solifenacin (Vesicare -) 5 mg PO DAILY [facility] Last Admin: 06/19/17 09:07 Dose: 5 mg - Objective Vital Signs: Vital Signs Temperature 97.5 F L 06/19/17 06:00 Pulse Rate 63 06/19/17 06:00 Respiratory Rate 20 06/19/17 06:00 Blood Pressure 168/74 06/19/17 06:00 O2 Sat by Pulse Oximetry (%) 93 L 06/18/17 23:00 Constitutional: Yes: No Distress, Calm Neck: Yes: Supple Cardiovascular: Yes: Regular Rate and Rhythm Respiratory: Yes: Regular, Diminished Gastrointestinal: Yes: Normal Bowel Sounds, Soft Edema: No Labs: CBC, BMP 06/19/17 06:00 06/19/17 06:00 INR, PTT INR 1.10 (0.82-1.09) 06/18/17 12:50 Problem List - Problems (1) Cholangitis due to bile duct calculus with obstruction Code(s): K80.31 - CALCULUS OF BILE DUCT W CHOLANGITIS, UNSP, WITH OBSTRUCTION (2) Hypertension Code(s): I10 - ESSENTIAL (PRIMARY) HYPERTENSION Qualifiers: Hypertension type: essential hypertension Qualified Code(s): I10 - Essential (primary) hypertension (3) Choledocholithiasis with obstruction Code(s): K80.51 - CALCULUS OF BILE DUCT W/O CHOLANGITIS OR CHOLECYST W OBST Qualifiers: Cholecystitis presence: with cholecystitis Cholecystitis acuity: acute and chronic Qualified Code(s): K80.47 - Calculus of bile duct with acute and chronic cholecystitis with obstruction (4) Cholelithiasis and acute cholecystitis with obstruction Code(s): K80.01 - CALCULUS OF GALLBLADDER W ACUTE CHOLECYSTITIS W OBSTRUCTION Assessment/Plan 1. Choledocholithiasis, with ascending cholanangitis post ERCP for future cholecystectomy 2. Post acute renal insufficiency with hyperkalemia, resolved hyperkalemia 3. Coronary artery disease angina pectoris, stable EKG changes pseudo- normalization of anterior T-wave abnormality 4. Diastolic/Systolic left ventricular dysfunction with chronic class I [place] [employer] classification left ventricular congestive heart failure , compensated/euvolemic 5. HTN 6. Organic brain syndrome/dementia 7. Anemia 8. Asymptomatic bradycardia resolved PLAN: 1. Continue Coreg 3.125 qd as hemodynamics permitting 2. Continue Cozaar 50 qd with close monitoring of renal function 3. Aldactone 12.5 qd to be resumed gradually with monitor renal function and electrolytes 4. Complete Antibiotics course per the primary team 5. As outlined in prior notes there are no absolute contraindications in proceeding with the above planned cholecystectomy considering that there is no clinical evidence of acute coronary syndrome and/or decompensated congestive heart failure and/or malignant sustained ventricular arrhythmia 6. Routine post-op care, analgesia as needed, DVT prophylaxis
[2017-06-19] MEDS ORDERED: LEVOFLOXACIN 500 MG IVPB 100 ML IVPB SCH (10:00)
--- NOTE | 2017-06-19 10:32 | PN ---
Teaching Attending Note Name of Resident: Jose Luis Bradshaw ATTENDING PHYSICIAN STATEMENT I saw and evaluated the patient. I reviewed the resident's note and discussed the case with the resident. I agree with the resident's findings and plan as documented. SUBJECTIVE: Patient feels nauseas, spitting clear sputum. Otherwise has no abdominal pain. OBJECTIVE: Vital Signs Temperature 97.5 F L 06/19/17 06:00 Pulse Rate 63 06/19/17 06:00 Respiratory Rate 20 06/19/17 06:00 Blood Pressure 168/74 06/19/17 06:00 O2 Sat by Pulse Oximetry (%) 93 L 06/18/17 23:00 CBCD WBC 17.2 K/mm3 (4.0-10.0) H D 06/19/17 06:00 RBC 3.52 M/mm3 (3.60-5.2) L 06/19/17 06:00 Hgb 11.5 GM/dL (10.7-15.3) 06/19/17 06:00 Hct 35.5 % (32.4-45.2) 06/19/17 06:00 MCV 101.0 fl (80-96) H 06/19/17 06:00 MCHC 32.5 g/dl (32.0-36.0) 06/19/17 06:00 RDW 13.8 % (11.6-15.6) 06/19/17 06:00 Plt Count 251 K/MM3 (134-434) 06/19/17 06:00 MPV 8.8 fl (7.5-11.1) 06/19/17 06:00 CMP Sodium 138 mmol/L (136-145) 06/19/17 06:00 Potassium 4.6 mmol/L (3.5-5.1) D 06/19/17 06:00 Chloride 105 mmol/L (98-107) 06/19/17 06:00 Carbon Dioxide 26 mmol/L (21-32) 06/19/17 06:00 Anion Gap 7 (8-16) L 06/19/17 06:00 BUN 13 mg/dL (7-18) D 06/19/17 06:00 Creatinine 0.9 mg/dL (0.55-1.02) D 06/19/17 06:00 Creat Clearance w eGFR > 60 (>60) 06/18/17 12:50 Random Glucose 191 mg/dL (74-106) H D 06/19/17 06:00 Calcium 8.1 mg/dL (8.5-10.1) L 06/19/17 06:00 Total Bilirubin 0.4 mg/dL (0.2-1.0) D 06/18/17 12:50 AST 22 U/L (15-37) D 06/18/17 12:50 ALT 39 U/L (12-78) D 06/18/17 12:50 Alkaline Phosphatase 101 U/L (45-117) 06/18/17 12:50 Total Protein 5.5 g/dl (6.4-8.2) L 06/18/17 12:50 Albumin 2.6 g/dl (3.4-5.0) L 06/18/17 12:50 CARDIAC ENZYMES Creatine Kinase 47 IU/L (26-192) 06/09/17 17:25 Troponin I < 0.02 ng/ml (0.00-0.05) 06/09/17 23:10 Current Medications Generic Name Dose Route Start Last Admin Trade Name Freq PRN Reason Stop Dose Admin Acetaminophen 500 mg 06/18/17 20:51 Tylenol - PO TID PRN pain/fever Albuterol Sulfate 1 amp 06/19/17 00:00 06/19/17 05:55 Ventolin 0.083% Nebulizer Soln - NEB Not Given QIDR [facility] Carvedilol 3.125 mg 06/19/17 10:00 06/19/17 09:05 Coreg - PO 3.125 mg DAILY [facility] Administration Cyanocobalamin 1,000 mcg 06/19/17 10:00 06/19/17 09:05 Vitamin B12 - PO 1,000 mcg DAILY [facility] Administration Enoxaparin Sodium 40 mg 06/19/17 10:00 06/19/17 09:05 Lovenox - SQ 40 mg DAILY [facility] Administration Fentanyl 50 mcg 06/18/17 19:19 Sublimaze Injection - IVPUSH 06/21/17 19:20 [id number] PRN PAIN Famotidine/Sodium Chloride 50 mls @ 100 mls/hr 06/18/17 22:45 06/19/17 09:02 Pepcid 20 Mg Premixed Ivpb - IVPB 100 mls/hr BID [facility] Administration Losartan Potassium 50 mg 06/19/17 10:00 06/19/17 09:05 Cozaar - PO 50 mg DAILY [facility] Administration Polyethylene Glycol 17 gm 06/15/17 14:30 06/19/17 09:15 Miralax (For Daily Use) - PO Not Given BID [facility] Solifenacin 5 mg 06/19/17 10:00 06/19/17 09:07 Vesicare - PO 5 mg DAILY [facility] Administration Spironolactone 12.5 mg 06/19/17 10:00 Aldactone - PO DAILY [facility] Abdomen: Positive for tenderness on deep palpation of RUQ area. positive BS. ASSESSMENT AND PLAN: 87 y/o lady with h/o chronic systolic heart failure , DM , HTN, and dementia who presented with AMS , was found to have hyperkalemia and RAYO. # POD#1 s/p Lap Judith. due acute cholecystitis Choledocolithiasis with Ascending cholangitis: s/p urgent ERCP 06/12 s/p stent , CBD stones removed follow with Dr. Best as out pt for stent removal after CCY. Patient continues to be nauseas, most likely due to morphine and Flagyl will discontinue Flagyl and evaquin for now, and monitor the patient. Incentive spirometer. # RAYO : resolved , patient is being placed back on Lasix 40mg po 2x per week will continue Spironolactone 12.5mg daily discussed with agrees with the plan. # H/o CHF : No acute decompensation cont carvedolol , ARB , lasic and spirinolactone # HTN: continue ARB . Coreg DVT Px: Heparin sq, Scds.
--- NOTE | 2017-06-19 11:06 | PN ---
Physical Exam: SUBJECTIVE: Patient seen and examined at bedside. Pt has no pain but does continue to have some nausea. No other complaints at this time. No acute events overnight. Denies headache, cp, sob, abd pain, fever, chills. OBJECTIVE: Vital Signs Period Temp Pulse Resp BP Sys/Savage Pulse Ox Last 24 Hr 97.4 F-98.4 F 45-88 14-20 113-202/48-84 93-99 GENERAL: The patient is awake, alert, and fully oriented, in no acute distress. HEAD: Normal with no signs of trauma. EYES: sclera anicteric, conjunctiva clear. No ptosis. ENT: nares patent, oropharynx clear without exudates, moist mucous membranes. NECK: Trachea midline, full range of motion, supple. LUNGS: Breath sounds equal, clear to auscultation bilaterally, no wheezes, no crackles, no accessory muscle use. Poor inspiratory effort HEART: Regular rate and rhythm, S1, S2 without murmur, rub or gallop. ABDOMEN: Soft, no tenderness to palpation, canseco's sign negative, nondistended , normoactive bowel sounds, no guarding, no rebound, no hepatosplenomegaly, no masses. Surgical port sites CDI EXTREMITIES: 2+ pulses, warm, well-perfused, no edema. NEUROLOGICAL: Cranial nerves II through XII grossly intact. Normal speech, gait not observed. PSYCH: Normal mood, normal affect. SKIN: Warm, dry, normal turgor, no rashes or lesions noted Laboratory Results - last 24 hr 06/18/17 06/18/17 06/18/17 12:50 12:50 12:50 WBC 5.6 RBC 3.16 L Hgb 10.6 L Hct 31.3 L MCV 99.2 H MCH 33.7 MCHC 34.0 RDW 13.7 Plt Count 236 D MPV 8.8 Neutrophils % 63.6 Lymphocytes % 22.3 Monocytes % 11.1 H Eosinophils % 2.4 Basophils % 0.6 INR PTT (Actin FS) Sodium 141 Potassium 3.8 Chloride 104 Carbon Dioxide 31 Anion Gap 6 L BUN 8 Creatinine 0.6 Creat Clearance w eGFR > 60 POC Glucometer Random Glucose 116 H D Calcium 8.1 L Phosphorus 2.6 D Magnesium 1.9 Total Bilirubin 0.4 D AST 22 D ALT 39 D Alkaline Phosphatase 101 Total Protein 5.5 L Albumin 2.6 L Total Amylase 41 D Lipase 439 H Blood Type O POSITIVE Antibody Screen Negative 06/18/17 06/18/17 06/19/17 12:50 12:50 06:00 WBC 17.2 H D RBC 3.52 L Hgb 11.5 Hct 35.5 MCV 101.0 H MCH 32.8 MCHC 32.5 RDW 13.8 Plt Count 251 MPV 8.8 Neutrophils % 91.8 H D Lymphocytes % 3.0 L D Monocytes % 5.1 Eosinophils % 0.0 D Basophils % 0.1 INR 1.10 PTT (Actin FS) 30.0 Sodium Potassium Chloride Carbon Dioxide Anion Gap BUN Creatinine Creat Clearance w eGFR POC Glucometer Random Glucose Calcium Phosphorus Magnesium Total Bilirubin AST ALT Alkaline Phosphatase Total Protein Albumin Total Amylase Cancelled Lipase Cancelled Blood Type Antibody Screen 06/19/17 06/19/17 06:00 06:08 WBC RBC Hgb Hct MCV MCH MCHC RDW Plt Count MPV Neutrophils % Lymphocytes % Monocytes % Eosinophils % Basophils % INR PTT (Actin FS) Sodium 138 Potassium 4.6 D Chloride 105 Carbon Dioxide 26 Anion Gap 7 L BUN 13 D Creatinine 0.9 D Creat Clearance w eGFR POC Glucometer 276 Random Glucose 191 H D Calcium 8.1 L Phosphorus Magnesium Total Bilirubin AST ALT Alkaline Phosphatase Total Protein Albumin Total Amylase Lipase Blood Type Antibody Screen Active Medications Generic Name Dose Route Start Last Admin Trade Name Freq PRN Reason Stop Dose Admin Acetaminophen 500 mg 06/18/17 20:51 Tylenol - PO TID PRN pain/fever Albuterol Sulfate 1 amp 06/19/17 00:00 06/19/17 05:55 Ventolin 0.083% Nebulizer Soln - NEB Not Given QIDR [facility] Carvedilol 3.125 mg 06/19/17 10:00 06/19/17 09:05 Coreg - PO 3.125 mg DAILY [facility] Administration Cyanocobalamin 1,000 mcg 06/19/17 10:00 06/19/17 09:05 Vitamin B12 - PO 1,000 mcg DAILY [facility] Administration Enoxaparin Sodium 40 mg 06/19/17 10:00 06/19/17 09:05 Lovenox - SQ 40 mg DAILY [facility] Administration Fentanyl 50 mcg 06/18/17 19:19 Sublimaze Injection - IVPUSH 06/21/17 19:20 [id number] PRN PAIN Famotidine/Sodium Chloride 50 mls @ 100 mls/hr 06/18/17 22:45 06/19/17 09:02 Pepcid 20 Mg Premixed Ivpb - IVPB 100 mls/hr BID [facility] Administration Losartan Potassium 50 mg 06/19/17 10:00 06/19/17 09:05 Cozaar - PO 50 mg DAILY [facility] Administration Polyethylene Glycol 17 gm 06/15/17 14:30 06/19/17 09:15 Miralax (For Daily Use) - PO Not Given BID [facility] Solifenacin 5 mg 06/19/17 10:00 06/19/17 09:07 Vesicare - PO 5 mg DAILY [facility] Administration Spironolactone 12.5 mg 06/19/17 10:00 Aldactone - PO DAILY [facility] ASSESSMENT/PLAN: 87yo Indonesian-speaking F from [facility] with h/o dementia, CHF , HTN, diabetes, vertigo admitted to tele inpatient for hyperkalemia with possible EKG changes and altered mentation with baseline unknown. Head CT neg for acute pathology; CXR moderate congestion; K 6.3 #Cholelithiasis -ERCP for choledocholithiasis last week. stent in place -pt on flagyl and levaquin. per ID recs for duration will depend on plan regarding surgery -per IR no drain. It was not placed because of concern over the patient's mental status and likelihood that she would pull the drain out. GI spoke with surgery, who saw the patient today and determined a plan for advancing diet and/ or surgery. -Pt went for cholecystectomy yesterday evening. Procedure went smoothly. -Ultram #leukocytosis -likely reactive #Constipation x4d -per GI, miralax given -dolculax -pending bm #Choledocholithiasis: Resolved by ERCP -No signs of pancreatitis -will stop monitoring lipase # RAYO: Stable -Stopped ARB and aldactone -Renally dosed Mirabegron down to 25mg -Nephro consultation -Avoid nephrotoxins #Fluid status -Pt not in CHF. No JVD, crackles, pedal edema -repeat CXR looks improved #Cards consult -ASA -Losartan -carvedilol -Aldactone #FEN - not on fluids - lytes wnl - diabetic diet PPX: DVT: on lovenox GI: Not indicated at current time Dispo: Admit to tele inpatient Jose Luis Bradshaw MD PGY-1 Visit type - Emergency Visit Emergency Visit: No - New Patient This patient is new to me today: No - Critical Care Critical Care patient: No - Discharge Referral Referred to [facility] No
[2017-06-19] MEDS ORDERED: ONDANSETRON 4 MG/2 ML VIAL IVPUSH PRN (13:10)
[2017-06-19] MEDS: SPIRONOLACTONE 25 MG TABLET (FP) PO SCH (13:23)
[2017-06-19] MEDS ORDERED: SODIUM CHLORIDE 1,000 ML IV STA (13:30)
[2017-06-19] MEDS ORDERED: SODIUM CHLORIDE 0.45% 1,000 ML IV SCH (13:45)
[2017-06-19] MEDS: INSULIN SLIDING SCALE (NOVOLOG) 1 VIAL SQ SCH ×2 (18:34→22:28)
[2017-06-19] MEDS: traMADol HCL 50 MG TABLET PO PRN (22:18)
[2017-06-20] MEDS: ALBUTEROL SO4 0.083% IH SOL 2.5 MG/3 ML VIAL.NEB. NEB SCH ×4 (05:54→17:50)
[2017-06-20] MEDS: INSULIN SLIDING SCALE (NOVOLOG) 1 VIAL SQ SCH ×4 (06:16→22:22)
[2017-06-20] MEDS: traMADol HCL 50 MG TABLET PO PRN (07:09)
[2017-06-20 07:19] LABS: BASOPHIL 0.3 % (0-2.0); EOSINOPHIL 0.2 % (0-4.5); MCH 33.4 pg (25.7-33.7); MCHC 33.4 g/dl (32.0-36.0); MEAN CELL VOLUME 100.1 fl (80-96); MEAN PLT VOLUME 8.7 fl (7.5-11.1); NEUTROPHILS 82.1 % (42.8-82.8); PLATELET COUNT 263 K/MM3 (134-434); WHITE BLOOD COUNT 11.4 K/mm3 (4.0-10.0)
[2017-06-20 07:36] LABS: ANION GAP 6 (8-16); CALCIUM 8.3 mg/dL (8.5-10.1); CO2 30 mmol/L (21-32); CREATININE 0.7 mg/dL (0.55-1.02); GLUCOSE,RANDOM 107 mg/dL (74-106); PHOSPHOROUS 2.3 mg/dL (2.5-4.9)
--- NOTE | 2017-06-20 09:28 | PN ---
Physical Exam: SUBJECTIVE: Patient seen and examined Patient has no further nausea, refusing to do incentive spirometer. Refusing IVF as well. OBJECTIVE: Vital Signs Temperature 98.2 F 06/20/17 09:30 Pulse Rate 56 L 06/20/17 09:30 Respiratory Rate 20 06/20/17 09:30 Blood Pressure 141/56 06/20/17 09:30 O2 Sat by Pulse Oximetry (%) 95 06/19/17 20:43 GENERAL: The patient is awake, alert, in no acute distress. HEAD: Normal with no signs of trauma. EYES: PERRL, extraocular movements intact, sclera anicteric, conjunctiva clear. ENT: Ears normal, oropharynx clear without exudates, moist mucous membranes. NECK: Trachea midline, full range of motion, supple. LUNGS: decreased Breath sounds at bases bilaterally, no wheezes, no crackles, no accessory muscle use. HEART: Regular rate and rhythm, S1, S2 positive, no rub of galop. ABDOMEN: Soft, nontender, nondistended, normoactive bowel sounds, positive for taylor due to Lap chol., site is clean EXTREMITIES: 2+ pulses, warm, well-perfused, no edema. NEUROLOGICAL: Cranial nerves II through XII grossly intact. Normal speech, gait not observed. PSYCH: Normal mood, normal affect. SKIN: Warm, dry, normal turgor, no rashes or lesions noted CBCD WBC 11.4 K/mm3 (4.0-10.0) H D 06/20/17 06:00 RBC 2.98 M/mm3 (3.60-5.2) L 06/20/17 06:00 Hgb 9.9 GM/dL (10.7-15.3) L D 06/20/17 06:00 Hct 29.8 % (32.4-45.2) L D 06/20/17 06:00 MCV 100.1 fl (80-96) H 06/20/17 06:00 MCHC 33.4 g/dl (32.0-36.0) 06/20/17 06:00 RDW 14.0 % (11.6-15.6) 06/20/17 06:00 Plt Count 263 K/MM3 (134-434) 06/20/17 06:00 MPV 8.7 fl (7.5-11.1) 06/20/17 06:00 CMP Sodium 141 mmol/L (136-145) 06/20/17 06:00 Potassium 4.5 mmol/L (3.5-5.1) 06/20/17 06:00 Chloride 105 mmol/L (98-107) 06/20/17 06:00 Carbon Dioxide 30 mmol/L (21-32) 06/20/17 06:00 Anion Gap 6 (8-16) L 06/20/17 06:00 BUN 11 mg/dL (7-18) 06/20/17 06:00 Creatinine 0.7 mg/dL (0.55-1.02) D 06/20/17 06:00 Creat Clearance w eGFR > 60 (>60) 06/18/17 12:50 Random Glucose 107 mg/dL (74-106) H D 06/20/17 06:00 Calcium 8.3 mg/dL (8.5-10.1) L 06/20/17 06:00 Total Bilirubin 0.4 mg/dL (0.2-1.0) D 06/18/17 12:50 AST 22 U/L (15-37) D 06/18/17 12:50 ALT 39 U/L (12-78) D 06/18/17 12:50 Alkaline Phosphatase 101 U/L (45-117) 06/18/17 12:50 Total Protein 5.5 g/dl (6.4-8.2) L 06/18/17 12:50 Albumin 2.6 g/dl (3.4-5.0) L 06/18/17 12:50 CARDIAC ENZYMES Creatine Kinase 47 IU/L (26-192) 06/09/17 17:25 Troponin I < 0.02 ng/ml (0.00-0.05) 06/09/17 23:10 Active Medications Generic Name Dose Route Start Last Admin Trade Name Freq PRN Reason Stop Dose Admin Acetaminophen 500 mg 06/18/17 20:51 Tylenol - PO TID PRN pain/fever Albuterol Sulfate 1 amp 06/19/17 00:00 06/20/17 05:54 Ventolin 0.083% Nebulizer Soln - NEB 1 amp QIDR JENNIFER Administration Carvedilol 3.125 mg 06/19/17 10:00 06/19/17 09:05 Coreg - PO 3.125 mg DAILY JENNIFER Administration Cyanocobalamin 1,000 mcg 06/19/17 10:00 06/19/17 09:05 Vitamin B12 - PO 1,000 mcg DAILY JENNIFER Administration Enoxaparin Sodium 40 mg 06/19/17 10:00 06/19/17 09:05 Lovenox - SQ 40 mg DAILY JENNIFER Administration Famotidine/Sodium Chloride 50 mls @ 100 mls/hr 06/18/17 22:45 06/19/17 22:14 Pepcid 20 Mg Premixed Ivpb - IVPB 100 mls/hr BID JENNIFER Administration Sodium Chloride 1,000 mls @ 75 mls/hr 06/19/17 13:45 06/19/17 14:41 1/2 Normal Saline IV 75 mls/hr ASDIR JENNIFER Administration Insulin Aspart 1 vial 06/19/17 16:30 06/20/17 06:16 Novolog Vial Sliding Scale - SQ Not Given ACHS JENNIFER Protocol Losartan Potassium 50 mg 06/19/17 10:00 06/19/17 09:05 Cozaar - PO 50 mg DAILY JENNIFER Administration Ondansetron HCl 4 mg 06/19/17 13:10 06/19/17 14:42 Zofran Injection IVPUSH 4 mg Q6H PRN Administration NAUSEA AND/OR VOMITING Polyethylene Glycol 17 gm 06/15/17 14:30 06/19/17 22:21 Miralax (For Daily Use) - PO 17 grams BID JENNIFER Administration Solifenacin 5 mg 06/19/17 10:00 06/19/17 09:07 Vesicare - PO 5 mg DAILY JENNIFER Administration Spironolactone 12.5 mg 06/19/17 10:00 06/19/17 13:23 Aldactone - PO 12.5 mg DAILY JENNIFER Administration Tramadol HCl 25 mg 06/19/17 11:05 06/20/17 07:09 Ultram - PO 25 mg Q6H PRN Administration PAIN Home Medications Medication Instructions Recorded Cyanocobalamin [Vitamin B12 -] 1,000 mcg PO DAILY 05/18/16 Mirabegron [Myrbetriq] 50 mg PO DAILY 05/18/16 Aspirin [ASA -] 81 mg PO DAILY tab.chew 05/23/16 Sennosides [Senna -] 2 tab PO DAILY 06/09/17 Cholecalciferol (Vitamin D3) 25,000 unit PO WEEKLY #4 capsule 06/17/17 [Decara] Levofloxacin [Levaquin] 500 mg PO DAILY #7 tablet 06/17/17 Losartan Potassium [Cozaar -] 50 mg PO DAILY tablet 06/17/17 Metronidazole [Flagyl -] 500 mg PO TID #21 tablet 06/17/17 Spironolactone [Aldactone] 12.5 mg PO DAILY #30 tablet 06/17/17 Carvedilol [Coreg -] 3.125 mg PO DAILY #1 tablet 06/18/17 ASSESSMENT/PLAN: 87 y/o lady with h/o chronic systolic heart failure , DM , HTN, and dementia who presented with AMS , was found to have hyperkalemia and RAYO. # POD#2 s/p Lap Judith. due acute cholecystitis Choledocolithiasis with Ascending cholangitis: s/p urgent ERCP 06/12 s/p stent , CBD stones removed follow with Dr. Best as out pt for stent removal after CCY. Patient s/p nauseas, discontinued morphine , Flagyl and Levaquin , off antibiotic now, will monitor. WBC 16k-->11.4 this morning. will monitor Incentive spirometer continue. # RAYO : resolved , patient is being placed back on Lasix 40mg po 2x per week will continue Spironolactone 12.5mg daily discussed with agrees with the plan. Discontinued IVF # H/o CHF : No acute decompensation cont coreg, ARB , lasix 40mg q72hr or 2x per week, Spirinolactone 12.5 mg every other day changed from once daily since potassium is 4.5 # HTN: continue ARB . Coreg DVT Px: Heparin sq, Scds. Visit type - Emergency Visit Emergency Visit: Yes ED Registration Date: 06/09/17 Care time: The patient presented to the Emergency Department on the above date and was hospitalized for further evaluation of their emergent condition. - New Patient This patient is new to me today: No - Critical Care Critical Care patient: No
[2017-06-20] MEDS ORDERED: traMADol HCL 50 MG TABLET PO PRN (09:52)
[2017-06-20] MEDS: SPIRONOLACTONE 25 MG TABLET (FP) PO SCH (09:55)
[2017-06-20] MEDS: CYANOCOBALAMIN 1,000 MCG TABLET (FP) PO SCH (09:56)
[2017-06-20] MEDS: CARVEDILOL 3.125 MG TABLET (FP) PO SCH (09:56)
[2017-06-20] MEDS: POLYETHYLENE GLYCOL 3350 119 GM BTL PO SCH ×2 (09:57→22:22)
[2017-06-20] MEDS: LOSARTAN POTASSIUM 50 MG TABLET (FP) PO SCH (09:57)
[2017-06-20] MEDS: ENOXAPARIN NA (PORCINE) 40 MG/0.4 ML DISP.SYRIN SQ SCH (09:57)
[2017-06-20] MEDS ORDERED: PT OWN MED DRAWER 7, Y5N ONE (09:58)
[2017-06-20] MEDS: SOLIFENACIN SUCCINATE 5 MG TAB (FP) PO SCH (09:59)
[2017-06-20] MEDS ORDERED: FUROSEMIDE 40 MG TABLET (FP) PO SCH (10:00)
[2017-06-20] MEDS: RANITIDINE HCL 150 MG TABLET (FP) PO SCH ×2 (10:07→22:22)
[2017-06-20] MEDS ORDERED: SPIRONOLACTONE 25 MG TABLET (FP) PO SCH (10:15)
[2017-06-20] MEDS ORDERED: INSULIN (NOVOLOG) ASPART 100 UNITS/ML 10ML VIAL ONE (12:03)
[2017-06-21] MEDS: ALBUTEROL SO4 0.083% IH SOL 2.5 MG/3 ML VIAL.NEB. NEB SCH ×3 (05:50→11:35)
[2017-06-21] MEDS: INSULIN SLIDING SCALE (NOVOLOG) 1 VIAL SQ SCH ×4 (06:24→21:40)
--- NOTE | 2017-06-21 07:15 | PN ---
Progress Note (short form) - Note Progress Note: ANESTHESIA POST OP NOTE PATIENT IS A 87 YEAR OF FEMALE STATUS POST LAP CHOLECYSTECTOMY UNDER GENERAL ANESTHESIA POST OP DAY TWO. PATIENT APPEARS TO HAVE NO ADVERSE REACTION TO THE ANESTHETIC, DIFFICULT TO ASSESS DUE TO COMMUNICATION BARRIERS. APPEARS COMFORTABLE, NO NAUSEA OR VOMITING. DEPT OF ANESTHESIA WILL SIGN OFF CARE AT THIS TIME.
[2017-06-21 07:29] LABS: BASOPHIL 0.4 % (0-2.0); EOSINOPHIL 0.7 % (0-4.5); MCH 34.5 pg (25.7-33.7); MCHC 34.6 g/dl (32.0-36.0); MEAN CELL VOLUME 99.7 fl (80-96); MEAN PLT VOLUME 8.6 fl (7.5-11.1); NEUTROPHILS 79.3 % (42.8-82.8); PLATELET COUNT 283 K/MM3 (134-434); RDW 13.7 % (11.6-15.6); WHITE BLOOD COUNT 9.2 K/mm3 (4.0-10.0)
[2017-06-21 07:50] LABS: ANION GAP 5 (8-16); CALCIUM 8.4 mg/dL (8.5-10.1); CO2 31 mmol/L (21-32); CREATININE 0.6 mg/dL (0.55-1.02); GLUCOSE,RANDOM 98 mg/dL (74-106)
[2017-06-21] MEDS: RANITIDINE HCL 150 MG TABLET (FP) PO SCH ×2 (09:18→21:41)
[2017-06-21] MEDS: ENOXAPARIN NA (PORCINE) 40 MG/0.4 ML DISP.SYRIN SQ SCH (09:18)
[2017-06-21] MEDS: LOSARTAN POTASSIUM 50 MG TABLET (FP) PO SCH (09:18)
[2017-06-21] MEDS: CYANOCOBALAMIN 1,000 MCG TABLET (FP) PO SCH (09:18)
[2017-06-21] MEDS: CARVEDILOL 3.125 MG TABLET (FP) PO SCH (09:20)
[2017-06-21] MEDS: POLYETHYLENE GLYCOL 3350 119 GM BTL PO SCH ×2 (09:21→21:40)
[2017-06-21] MEDS: SOLIFENACIN SUCCINATE 5 MG TAB (FP) PO SCH (09:21)
--- NOTE | 2017-06-21 09:54 | PN ---
Physical Exam: SUBJECTIVE: Patient seen and examined by me at bedside. POD #3 S/P Cholecystectomy. No overnight events noted. Patient offers no complaints and denies any pain. Patient continues to refuse respiratory treatment, oxygen, and physical therapy. Patient has been taking her medications. Otherwise, patient denies fever, chills, vomiting, abdominal pain, chest pain, palpitations , shortness of breath. OBJECTIVE: Vital Signs Period Temp Pulse Resp BP Sys/Savage Pulse Ox Last 24 Hr 98.3 F-99.2 F 52-104 18-20 97-168/43-64 93 GENERAL: The patient is awake, alert, and fully oriented, in no acute distress. LUNGS: Breath sounds equal, clear to auscultation bilaterally, no wheezes, no crackles, no accessory muscle use. HEART: Regular rate and rhythm, S1, S2 without murmur, rub or gallop. ABDOMEN: Surgical incision dressing c/d/i. Soft, nontender, nondistended, normoactive bowel sounds, no guarding, no rebound. EXTREMITIES: No edema. Laboratory Results - last 24 hr 06/20/17 06/20/17 06/20/17 12:08 17:17 22:15 WBC RBC Hgb Hct MCV MCH MCHC RDW Plt Count MPV Neutrophils % Lymphocytes % Monocytes % Eosinophils % Basophils % Sodium Potassium Chloride Carbon Dioxide Anion Gap BUN Creatinine POC Glucometer 113 105 146 Random Glucose Calcium 06/21/17 06/21/17 06/21/17 06:00 06:00 06:11 WBC 9.2 RBC 2.96 L Hgb 10.2 L Hct 29.5 L MCV 99.7 H MCH 34.5 H MCHC 34.6 RDW 13.7 Plt Count 283 MPV 8.6 Neutrophils % 79.3 Lymphocytes % 13.0 Monocytes % 6.6 Eosinophils % 0.7 D Basophils % 0.4 Sodium 141 Potassium 4.2 Chloride 105 Carbon Dioxide 31 Anion Gap 5 L BUN 9 Creatinine 0.6 POC Glucometer 102 Random Glucose 98 Calcium 8.4 L Active Medications Generic Name Dose Route Start Last Admin Trade Name Freq PRN Reason Stop Dose Admin Acetaminophen 500 mg 06/18/17 20:51 06/20/17 09:56 Tylenol - PO 500 mg TID PRN Administration pain/fever Albuterol Sulfate 1 amp 06/19/17 00:00 06/21/17 05:50 Ventolin 0.083% Nebulizer Soln - NEB Not Given QIDR JENNIFER Carvedilol 3.125 mg 06/19/17 10:00 06/21/17 09:20 Coreg - PO Not Given DAILY [facility] Cyanocobalamin 1,000 mcg 06/19/17 10:00 06/21/17 09:18 Vitamin B12 - PO 1,000 mcg DAILY JENNIFER Administration Enoxaparin Sodium 40 mg 06/19/17 10:00 06/21/17 09:18 Lovenox - SQ 40 mg DAILY JENNIFER Administration Furosemide 40 mg 06/20/17 10:00 06/20/17 12:07 Lasix - PO 40 mg Q72H JENNIFER Administration Insulin Aspart 1 vial 06/19/17 16:30 06/21/17 06:24 Novolog Vial Sliding Scale - SQ Not Given ACHS [facility] Protocol Losartan Potassium 50 mg 06/19/17 10:00 06/21/17 09:18 Cozaar - PO 50 mg DAILY JENNIFER Administration Ondansetron HCl 4 mg 06/19/17 13:10 06/19/17 14:42 Zofran Injection IVPUSH 4 mg Q6H PRN Administration NAUSEA AND/OR VOMITING Polyethylene Glycol 17 gm 06/15/17 14:30 06/21/17 09:21 Miralax (For Daily Use) - PO 17 grams BID JENNIFER Administration Ranitidine HCl 150 mg 06/20/17 10:00 06/21/17 09:18 Zantac - PO 150 mg BID JENNIFER Administration Solifenacin 5 mg 06/19/17 10:00 06/21/17 09:21 Vesicare - PO 5 mg DAILY JENNIFER Administration Spironolactone 12.5 mg 06/22/17 10:00 Aldactone - PO Q48H JENNIFER Tramadol HCl 25 mg 06/20/17 09:52 Ultram - PO Q8H PRN PAIN ASSESSMENT/PLAN: Patent is an 87 year old female with a PMHx of chronic systolic heart failure, HTN, dementia who presented for AMS and was found to have hyperkalemia and RAYO. Ascending Cholangitis secondary to Choledocholithiasis w/Obstruction- Resolving -S/P urgent ERCP 06/12/17 w/ stent placement -S/P Laparoscopic Cholecystecomy day #3 -Currently off antibiotics and WBC's have trended down -Continue Incentive Spirometer, however patient continues to refuse RAYO- Resolved -Continue to monitor BMP Systolic CHF-Controlled -Carvedilol 3.125mg -Continue Lasix 40mg Q72H -Continue Aldactone 12.5mg Q48H -Continue Cozaar 50mg Daily HTN-Controlled -Continue Coreg 3.125mg daily -Continue Cozaae 50mg daily -Continue to monitor BP F/E/N -On no fluids -Electrolytes wnl -Clear liquids Prophylaxis -Lovenox 40mg SQ daily Disposition -Full code -Waiting for [facility] to accept patient back. Will likely be discharged tomorrow Visit type - Emergency Visit Emergency Visit: Yes ED Registration Date: 06/09/17 Care time: The patient presented to the Emergency Department on the above date and was hospitalized for further evaluation of their emergent condition. - New Patient This patient is new to me today: No - Critical Care Critical Care patient: No
--- NOTE | 2017-06-21 09:56 | PN ---
Teaching Attending Note Name of Resident: Chasity Carlisle ATTENDING PHYSICIAN STATEMENT I saw and evaluated the patient. I reviewed the resident's note and discussed the case with the resident. I agree with the resident's findings and plan as documented. SUBJECTIVE: patient is feeling better with no acute distress, no shortness of breath, no vomiting, no nausea at this time, no abdominal pain. OBJECTIVE: Vital Signs Temperature 99.2 F 06/21/17 09:24 Pulse Rate 60 06/21/17 09:24 Respiratory Rate 20 06/21/17 09:24 Blood Pressure 168/59 06/21/17 09:24 O2 Sat by Pulse Oximetry (%) 93 L 06/20/17 21:00 CBCD WBC 9.2 K/mm3 (4.0-10.0) 06/21/17 06:00 RBC 2.96 M/mm3 (3.60-5.2) L 06/21/17 06:00 Hgb 10.2 GM/dL (10.7-15.3) L 06/21/17 06:00 Hct 29.5 % (32.4-45.2) L 06/21/17 06:00 MCV 99.7 fl (80-96) H 06/21/17 06:00 MCHC 34.6 g/dl (32.0-36.0) 06/21/17 06:00 RDW 13.7 % (11.6-15.6) 06/21/17 06:00 Plt Count 283 K/MM3 (134-434) 06/21/17 06:00 MPV 8.6 fl (7.5-11.1) 06/21/17 06:00 CMP Sodium 141 mmol/L (136-145) 06/21/17 06:00 Potassium 4.2 mmol/L (3.5-5.1) 06/21/17 06:00 Chloride 105 mmol/L (98-107) 06/21/17 06:00 Carbon Dioxide 31 mmol/L (21-32) 06/21/17 06:00 Anion Gap 5 (8-16) L 06/21/17 06:00 BUN 9 mg/dL (7-18) 06/21/17 06:00 Creatinine 0.6 mg/dL (0.55-1.02) 06/21/17 06:00 Creat Clearance w eGFR > 60 (>60) 06/18/17 12:50 Random Glucose 98 mg/dL (74-106) 06/21/17 06:00 Calcium 8.4 mg/dL (8.5-10.1) L 06/21/17 06:00 Total Bilirubin 0.4 mg/dL (0.2-1.0) D 06/18/17 12:50 AST 22 U/L (15-37) D 06/18/17 12:50 ALT 39 U/L (12-78) D 06/18/17 12:50 Alkaline Phosphatase 101 U/L (45-117) 06/18/17 12:50 Total Protein 5.5 g/dl (6.4-8.2) L 06/18/17 12:50 Albumin 2.6 g/dl (3.4-5.0) L 06/18/17 12:50 CARDIAC ENZYMES Creatine Kinase 47 IU/L (26-192) 06/09/17 17:25 Troponin I < 0.02 ng/ml (0.00-0.05) 06/09/17 23:10 Current Medications Generic Name Dose Route Start Last Admin Trade Name Freq PRN Reason Stop Dose Admin Acetaminophen 500 mg 06/18/17 20:51 06/20/17 09:56 Tylenol - PO 500 mg TID PRN Administration pain/fever Albuterol Sulfate 1 amp 06/19/17 00:00 06/21/17 05:50 Ventolin 0.083% Nebulizer Soln - NEB Not Given QIDR JENNIFER Carvedilol 3.125 mg 06/19/17 10:00 06/21/17 09:20 Coreg - PO Not Given DAILY JENNIFER Cyanocobalamin 1,000 mcg 06/19/17 10:00 06/21/17 09:18 Vitamin B12 - PO 1,000 mcg DAILY JENNIFER Administration Enoxaparin Sodium 40 mg 06/19/17 10:00 06/21/17 09:18 Lovenox - SQ 40 mg DAILY JENNIFER Administration Furosemide 40 mg 06/20/17 10:00 06/20/17 12:07 Lasix - PO 40 mg Q72H JENNIFER Administration Insulin Aspart 1 vial 06/19/17 16:30 06/21/17 06:24 Novolog Vial Sliding Scale - SQ Not Given ACHS [facility] Protocol Losartan Potassium 50 mg 06/19/17 10:00 06/21/17 09:18 Cozaar - PO 50 mg DAILY JENNIFER Administration Ondansetron HCl 4 mg 06/19/17 13:10 06/19/17 14:42 Zofran Injection IVPUSH 4 mg Q6H PRN Administration NAUSEA AND/OR VOMITING Polyethylene Glycol 17 gm 06/15/17 14:30 06/21/17 09:21 Miralax (For Daily Use) - PO 17 grams BID JENNIFER Administration Ranitidine HCl 150 mg 06/20/17 10:00 06/21/17 09:18 Zantac - PO 150 mg BID JENNIFER Administration Solifenacin 5 mg 06/19/17 10:00 06/21/17 09:21 Vesicare - PO 5 mg DAILY JENNIFER Administration Spironolactone 12.5 mg 06/22/17 10:00 Aldactone - PO Q48H JENNIFER Tramadol HCl 25 mg 06/20/17 09:52 Ultram - PO Q8H PRN PAIN Home Medications Medication Instructions Recorded Cyanocobalamin [Vitamin B12 -] 1,000 mcg PO DAILY 05/18/16 Mirabegron [Myrbetriq] 50 mg PO DAILY 05/18/16 Aspirin [ASA -] 81 mg PO DAILY tab.chew 05/23/16 Sennosides [Senna -] 2 tab PO DAILY 06/09/17 Cholecalciferol (Vitamin D3) 25,000 unit PO WEEKLY #4 capsule 06/17/17 [Decara] Levofloxacin [Levaquin] 500 mg PO DAILY #7 tablet 06/17/17 Losartan Potassium [Cozaar -] 50 mg PO DAILY tablet 06/17/17 Metronidazole [Flagyl -] 500 mg PO TID #21 tablet 06/17/17 Spironolactone [Aldactone] 12.5 mg PO DAILY #30 tablet 06/17/17 Carvedilol [Coreg -] 3.125 mg PO DAILY #1 tablet 06/18/17 PE: no abdominal pain on palpation, staple sites are clean ASSESSMENT AND PLAN: 87 y/o lady with h/o chronic systolic heart failure , DM , HTN, and dementia who presented with AMS , was found to have hyperkalemia and RAYO. # POD#3 s/p Lap Judith. due acute cholecystitis Choledocolithiasis with Ascending cholangitis: s/p urgent ERCP 06/12 s/p stent CBD stones removed ,follow with Dr. Best as out pt for stent removal after CCY. Patient s/p nauseas, discontinued morphine , Flagyl and Levaquin , off antibiotic now, will monitor. WBC 16k-->11.4-->9.2K this morning. will monitor , Incentive spirometer continue, but patient refusing it. # HTN Uncontrolled will give an extra dose of Lasix today , will monitor blood pressure. continue ARB . Coreg # RAYO : resolved , patient is being placed back on Lasix 40mg po 2x per week will continue Spironolactone 12.5mg daily discussed with agrees with the plan.Off IVF # H/o CHF : No acute decompensation cont coreg, ARB , lasix 40mg q72hr or 2x per week, Spirinolactone 12.5 mg every other day changed from once daily since potassium is 4.5, continue ARB and Coreg . DVT Px: Heparin sq, Scds. Discharge to [facility] in am
[2017-06-21] MEDS ORDERED: ERGOCALCIFEROL (VITAMIN D2) 50,000 UNIT CAPSULE (FP) PO SCH (10:00)
[2017-06-21] MEDS ORDERED: FUROSEMIDE 40 MG TABLET (FP) PO ONE (12:30)
[2017-06-21] MEDS ORDERED: amLODIPine BESYLATE 5 MG TABLET (FP) PO ONE (12:30)
--- NOTE | 2017-06-21 12:35 | PN ---
Progress Note, Physician History of Present Illness: No complaints, post-lap cholecystectomy POD#3, tolerating clear diet with resolved nausea and emesis. - Current Medication List Current Medications: Active Medications Acetaminophen (Tylenol -) 500 mg PO TID PRN PRN Reason: pain/fever Last Admin: 06/20/17 09:56 Dose: 500 mg Albuterol Sulfate (Ventolin 0.083% Nebulizer Soln -) 1 amp NEB QIDR [facility] Last Admin: 06/21/17 11:35 Dose: 1 amp Carvedilol (Coreg -) 3.125 mg PO DAILY [facility] Last Admin: 06/21/17 09:20 Dose: Not Given Cyanocobalamin (Vitamin B12 -) 1,000 mcg PO DAILY [facility] Last Admin: 06/21/17 09:18 Dose: 1,000 mcg Enoxaparin Sodium (Lovenox -) 40 mg SQ DAILY [facility] Last Admin: 06/21/17 09:18 Dose: 40 mg Furosemide (Lasix -) 40 mg PO Q72H [facility] Last Admin: 06/20/17 12:07 Dose: 40 mg Insulin Aspart (Novolog Vial Sliding Scale -) 1 vial SQ ACHS [facility] PRN Reason: Protocol Last Admin: 06/21/17 12:19 Dose: 2 units Losartan Potassium (Cozaar -) 50 mg PO DAILY [facility] Last Admin: 06/21/17 09:18 Dose: 50 mg Ondansetron HCl (Zofran Injection) 4 mg IVPUSH Q6H PRN PRN Reason: NAUSEA AND/OR VOMITING Last Admin: 06/19/17 14:42 Dose: 4 mg Polyethylene Glycol (Miralax (For Daily Use) -) 17 gm PO BID [facility] Last Admin: 06/21/17 09:21 Dose: 17 grams Ranitidine HCl (Zantac -) 150 mg PO BID [facility] Last Admin: 06/21/17 09:18 Dose: 150 mg Solifenacin (Vesicare -) 5 mg PO DAILY [facility] Last Admin: 06/21/17 09:21 Dose: 5 mg Spironolactone (Aldactone -) 12.5 mg PO Q48H JENNIFER Tramadol HCl (Ultram -) 25 mg PO Q8H PRN PRN Reason: PAIN - Objective Vital Signs: Vital Signs Temperature 99.2 F 06/21/17 09:24 Pulse Rate 60 06/21/17 09:24 Respiratory Rate 20 06/21/17 09:24 Blood Pressure 168/59 06/21/17 09:24 O2 Sat by Pulse Oximetry (%) 93 L 06/20/17 21:00 Constitutional: Yes: No Distress, Calm Neck: Yes: Supple Cardiovascular: Yes: Regular Rate and Rhythm Respiratory: Yes: Regular, Diminished Gastrointestinal: Yes: Normal Bowel Sounds, Soft Edema: No Labs: CBC, BMP 06/21/17 06:00 06/21/17 06:00 INR, PTT INR 1.10 (0.82-1.09) 06/18/17 12:50 Problem List - Problems (1) Cholangitis due to bile duct calculus with obstruction Code(s): K80.31 - CALCULUS OF BILE DUCT W CHOLANGITIS, UNSP, WITH OBSTRUCTION (2) Hypertension Code(s): I10 - ESSENTIAL (PRIMARY) HYPERTENSION Qualifiers: Hypertension type: essential hypertension Qualified Code(s): I10 - Essential (primary) hypertension (3) Choledocholithiasis with obstruction Code(s): K80.51 - CALCULUS OF BILE DUCT W/O CHOLANGITIS OR CHOLECYST W OBST Qualifiers: Cholecystitis presence: with cholecystitis Cholecystitis acuity: acute and chronic Qualified Code(s): K80.47 - Calculus of bile duct with acute and chronic cholecystitis with obstruction (4) Cholelithiasis and acute cholecystitis with obstruction Code(s): K80.01 - CALCULUS OF GALLBLADDER W ACUTE CHOLECYSTITIS W OBSTRUCTION Assessment/Plan 1. Choledocholithiasis, with ascending cholanangitis post ERCP post lap cholecystectomy POD#3 2. Post acute renal insufficiency with hyperkalemia, resolved hyperkalemia 3. Coronary artery disease angina pectoris, stable EKG changes pseudo- normalization of anterior T-wave abnormality 4. Diastolic/Systolic left ventricular dysfunction with chronic class I [employer] [employer] classification left ventricular congestive heart failure , compensated/euvolemic 5. HTN 6. Organic brain syndrome/dementia 7. Anemia 8. Asymptomatic bradycardia resolved PLAN: 1. Continue Coreg 3.125 qd as hemodynamics permitting 2. Continue Cozaar 50 qd and increase Aldactone 12.5 qd with close monitoring of renal function and electrolytes 3. Completed Antibiotics course per the primary team 4. Routine post-op care, analgesia as needed, DVT and GI prophylaxis
--- NOTE | 2017-06-21 18:02 | PN ---
Teaching Attending Note Name of Resident: Jose Luis Bradshaw ATTENDING PHYSICIAN STATEMENT I saw and evaluated the patient. I reviewed the resident's note and discussed the case with the resident. I agree with the resident's findings and plan as documented. SUBJECTIVE: Patient is feeling better, OBJECTIVE: ASSESSMENT AND PLAN:
[2017-06-21] MEDS ORDERED: INSULIN (NOVOLOG) ASPART 100 UNITS/ML 10ML VIAL ONE (21:03)
[2017-06-22] MEDS: ALBUTEROL SO4 0.083% IH SOL 2.5 MG/3 ML VIAL.NEB. NEB SCH ×3 (01:19→11:32)
[2017-06-22] MEDS: INSULIN SLIDING SCALE (NOVOLOG) 1 VIAL SQ SCH ×2 (06:16→13:22)
[2017-06-22] MEDS: CYANOCOBALAMIN 1,000 MCG TABLET (FP) PO SCH (09:25)
[2017-06-22] MEDS: RANITIDINE HCL 150 MG TABLET (FP) PO SCH (09:25)
[2017-06-22] MEDS: LOSARTAN POTASSIUM 50 MG TABLET (FP) PO SCH (09:25)
[2017-06-22] MEDS: CARVEDILOL 3.125 MG TABLET (FP) PO SCH (09:25)
[2017-06-22] MEDS: ENOXAPARIN NA (PORCINE) 40 MG/0.4 ML DISP.SYRIN SQ SCH (09:26)
[2017-06-22] MEDS ORDERED: GLYCERIN 1 RECTAL SUPPOSITORY, ADULT PR ONE (09:32)
--- NOTE | 2017-06-22 09:34 | DS ---
Physical Exam: SUBJECTIVE: Patient seen and examined at bedside. Pt has no complaint today. No other complaints. No fever, dizziness, diarrhea, dysuria. OBJECTIVE: Vital Signs Period Temp Pulse Resp BP Sys/Savage Pulse Ox Last 24 Hr 98.3 F-99 F 52-63 20-20 133-167/56-79 94 PHYSICAL EXAM GENERAL: The patient is awake, alert, and oriented x2, in no acute distress. HEAD: Normal with no signs of trauma. EYES: sclera anicteric, conjunctiva clear. No ptosis. ENT: oropharynx clear without exudates, moist mucous membranes. NECK: Trachea midline, full range of motion, supple. LUNGS: Breath sounds equal, clear to auscultation bilaterally, no wheezes, no crackles, no accessory muscle use. HEART: Regular rate and rhythm, normal S1, S2 without murmur, rub or gallop. ABDOMEN: Soft, No RUQ tenderness today, nondistended, normoactive bowel sounds, guarding, no rebound, no hepatosplenomegaly, no masses. EXTREMITIES: 2+ pulses, warm, well-perfused, no edema. NEUROLOGICAL: Cranial nerves II through XII grossly intact. Normal speech, gait not observed. PSYCH: Normal mood, normal affect. SKIN: Warm, dry, normal turgor, no rashes or lesions noted LABS Laboratory Results - last 24 hr 06/21/17 06/21/17 06/21/17 12:01 17:06 21:38 POC Glucometer 171 133 194 06/22/17 06:14 POC Glucometer 97 HOSPITAL COURSE: Date of Admission:06/09/17 Date of Discharge: 06/22/17 87yo Martiniquais-speaking F from [facility] with h/o dementia, CHF , HTN, diabetes, vertigo admitted to [facility] inpatient for hyperkalemia with possible EKG changes and altered mentation with baseline unknown. Head CT neg for acute pathology; CXR moderate congestion; K 6.3 Pt was given kayexelate which resolved the high K. In hospital, pt developed abdominal pain. Abd U/S revealed dilated CBD. HIDA scan was done and showed hepatobiliary disease. MRCP was ordered and showed choledocolithiasis with multiple large stones. Pt's liver enzymes suddenly became elevated, and the patient was taken for urgent ERCP with stent placement. The patient tolerated the procedure well and abdominal pain improved. The patient was given instructions to follow up with Dr. Best as an outpatient for assessment and removal of her stent. Surgery was consulted for cholecystectomy, which went smoothly. She should follow up with her PCP and with surg. During her stay, the patient also developed RAOY. Nephrology was consulted, and her renal function was normalized. In the hospital, the patient was seen by cardiology for possible ekg changes on admission and possible CHF. The EKG changes were determined to be a return to baseline. Cardiology also helped with optimization of her medications. Pt is stable for discharge back to [facility]. Jose Luis Bradshaw MD PGY-1 Minutes to complete discharge: 45 Discharge Summary Reason For Visit: RENAL INSUFF/SINUS BRADYCARD/HEADACHE Current Active Problems Abdominal pain (Acute) Acute electrocardiogram changes (Acute) Cholangitis due to bile duct calculus with obstruction (Acute) Cholecystitis (Acute) Choledocholithiasis with obstruction (Acute) Cholelithiasis and acute cholecystitis with obstruction (Acute) Headache (Acute) Hyperglycemia (Acute) Hyperkalemia (Acute) Jaundice with stoppage of bile flow (Acute) Renal insufficiency (Acute) Sinus bradycardia (Acute) Vertigo (Acute) - Instructions Diet, Activity, Other Instructions: You need to follow up with your doctors: -You have an appointment for Thu with Dr. Jeffrey or Dr. Lowery. Contact information will be in your discharge packet. -You need to follow up with Dr. Valdez, gastroenterology -You need to follow up with Dr. Holly, nephrology - It is important to follow with Dr. Best. You had a stent placed in your biliary tree in your belly. Please see him in 1 month to evaluate for removal. Your potassium was high. It was corrected, but you need to follow up with your primary care doctor to have this checked. -You are being sent home with Aspirin. You need to stop taking aspirin 5 days before any procedure. Low Fat diet, complete the antibiotics, follow with the surgeon , an appointment has been made with on 06/22/2017 Referrals: Kristina Burrell MD [Staff Physician] - 1 Week Claudette Franco MD [Primary Care Provider] - 1 Week Florian Best MD [Staff Physician] - Renzo Lowery MD [Staff Physician] - 1 Week (An Appointment is given on 06/22/2017. ) Sukh Holly MD [Staff Physician] - 1 Week Juan Jeffrey MD [Staff Physician] - 1 Week [facility] - Home Medications Comprehensive Discharge Medication List: Ambulatory Orders Cyanocobalamin [Vitamin B12 -] 1,000 mcg PO DAILY 05/18/16 Mirabegron [Myrbetriq] 50 mg PO DAILY 05/18/16 Aspirin [ASA -] 81 mg PO DAILY tab.chew 05/23/16 Sennosides [Senna -] 2 tab PO DAILY 06/09/17 Cholecalciferol (Vitamin D3) [Decara] 25,000 unit PO WEEKLY #4 capsule 06/17/17 Losartan Potassium [Cozaar -] 50 mg PO DAILY tablet 06/17/17 Spironolactone [Aldactone] 12.5 mg PO DAILY #30 tablet 06/17/17 Carvedilol [Coreg -] 3.125 mg PO DAILY #1 tablet 06/18/17 - Discharge Referral Referred to [facility] No
--- NOTE | 2017-06-22 09:35 | PN ---
Teaching Attending Note Name of Resident: Jose Luis Bradshaw ATTENDING PHYSICIAN STATEMENT I saw and evaluated the patient. I reviewed the resident's note and discussed the case with the resident. I agree with the resident's findings and plan as documented. SUBJECTIVE: Patient is feeling better, with no acute distress. No further nausea or vomiting. OBJECTIVE: Vital Signs Temperature 98.3 F 06/22/17 05:44 Pulse Rate 63 06/22/17 05:44 Respiratory Rate 20 06/22/17 05:44 Blood Pressure 167/79 06/22/17 05:44 O2 Sat by Pulse Oximetry (%) 94 L 06/21/17 21:00 CBCD WBC 9.2 K/mm3 (4.0-10.0) 06/21/17 06:00 RBC 2.96 M/mm3 (3.60-5.2) L 06/21/17 06:00 Hgb 10.2 GM/dL (10.7-15.3) L 06/21/17 06:00 Hct 29.5 % (32.4-45.2) L 06/21/17 06:00 MCV 99.7 fl (80-96) H 06/21/17 06:00 MCHC 34.6 g/dl (32.0-36.0) 06/21/17 06:00 RDW 13.7 % (11.6-15.6) 06/21/17 06:00 Plt Count 283 K/MM3 (134-434) 06/21/17 06:00 MPV 8.6 fl (7.5-11.1) 06/21/17 06:00 CMP Sodium 141 mmol/L (136-145) 06/21/17 06:00 Potassium 4.2 mmol/L (3.5-5.1) 06/21/17 06:00 Chloride 105 mmol/L (98-107) 06/21/17 06:00 Carbon Dioxide 31 mmol/L (21-32) 06/21/17 06:00 Anion Gap 5 (8-16) L 06/21/17 06:00 BUN 9 mg/dL (7-18) 06/21/17 06:00 Creatinine 0.6 mg/dL (0.55-1.02) 06/21/17 06:00 Creat Clearance w eGFR > 60 (>60) 06/18/17 12:50 Random Glucose 98 mg/dL (74-106) 06/21/17 06:00 Calcium 8.4 mg/dL (8.5-10.1) L 06/21/17 06:00 Total Bilirubin 0.4 mg/dL (0.2-1.0) D 06/18/17 12:50 AST 22 U/L (15-37) D 06/18/17 12:50 ALT 39 U/L (12-78) D 06/18/17 12:50 Alkaline Phosphatase 101 U/L (45-117) 06/18/17 12:50 Total Protein 5.5 g/dl (6.4-8.2) L 06/18/17 12:50 Albumin 2.6 g/dl (3.4-5.0) L 06/18/17 12:50 CARDIAC ENZYMES Creatine Kinase 47 IU/L (26-192) 06/09/17 17:25 Troponin I < 0.02 ng/ml (0.00-0.05) 06/09/17 23:10 Current Medications Generic Name Dose Route Start Last Admin Trade Name Freq PRN Reason Stop Dose Admin Acetaminophen 500 mg 06/18/17 20:51 06/20/17 09:56 Tylenol - PO 500 mg TID PRN Administration pain/fever Albuterol Sulfate 1 amp 06/19/17 00:00 06/22/17 06:05 Ventolin 0.083% Nebulizer Soln - NEB Not Given QIDR JENNIFER Carvedilol 3.125 mg 06/19/17 10:00 06/22/17 09:25 Coreg - PO 3.125 mg DAILY JENNIFER Administration Cyanocobalamin 1,000 mcg 06/19/17 10:00 06/22/17 09:25 Vitamin B12 - PO 1,000 mcg DAILY JENNIFER Administration Enoxaparin Sodium 40 mg 06/19/17 10:00 06/22/17 09:26 Lovenox - SQ 40 mg DAILY JENNIFER Administration Furosemide 40 mg 06/20/17 10:00 06/20/17 12:07 Lasix - PO 40 mg Q72H JENNIFER Administration Glycerin 2 each 06/22/17 09:32 Glycerin Suppository Adult - MO 06/22/17 09:33 ONCE STA Insulin Aspart 1 vial 06/19/17 16:30 06/22/17 06:16 Novolog Vial Sliding Scale - SQ Not Given ACHS [facility] Protocol Losartan Potassium 50 mg 06/19/17 10:00 06/22/17 09:25 Cozaar - PO 50 mg DAILY JENNIFER Administration Ondansetron HCl 4 mg 06/19/17 13:10 06/19/17 14:42 Zofran Injection IVPUSH 4 mg Q6H PRN Administration NAUSEA AND/OR VOMITING Polyethylene Glycol 17 gm 06/15/17 14:30 06/21/17 21:40 Miralax (For Daily Use) - PO 17 grams BID JENNIFER Administration Ranitidine HCl 150 mg 06/20/17 10:00 06/22/17 09:25 Zantac - PO 150 mg BID JENNIFER Administration Solifenacin 5 mg 06/19/17 10:00 06/21/17 09:21 Vesicare - PO 5 mg DAILY JENNIFER Administration Spironolactone 12.5 mg 06/22/17 10:00 06/22/17 09:25 Aldactone - PO 12.5 mg Q48H JENNIFER Administration Tramadol HCl 25 mg 06/20/17 09:52 Ultram - PO Q8H PRN PAIN Home Medications Medication Instructions Recorded Cyanocobalamin [Vitamin B12 -] 1,000 mcg PO DAILY 05/18/16 Mirabegron [Myrbetriq] 50 mg PO DAILY 05/18/16 Aspirin [ASA -] 81 mg PO DAILY tab.chew 05/23/16 Sennosides [Senna -] 2 tab PO DAILY 06/09/17 Cholecalciferol (Vitamin D3) 25,000 unit PO WEEKLY #4 capsule 06/17/17 [Decara] Losartan Potassium [Cozaar -] 50 mg PO DAILY tablet 06/17/17 Spironolactone [Aldactone] 12.5 mg PO DAILY #30 tablet 06/17/17 Carvedilol [Coreg -] 3.125 mg PO DAILY #1 tablet 06/18/17 Furosemide [Lasix -] 40 mg PO Q72H tablet 06/22/17 PE: per resident' note Abdomen: no abdominal pain on palpation, staple sites are clean ASSESSMENT AND PLAN: 87 y/o lady with h/o chronic systolic heart failure , DM , HTN, and dementia who presented with AMS , was found to have hyperkalemia and RAYO. # POD#4 s/p Lap Judith. due acute cholecystitis Choledocolithiasis with Ascending cholangitis: s/p urgent ERCP 06/12 s/p stent CBD stones removed , follow with Dr. Best as out pt for stent removal after CCY. WBC 16k-->11.4--> 9.2K , Incentive spirometer continue. Follow with for stent removal and follow with the surgeon for removal of taylor and follow exam. # HTN continue meds # RAYO : resolved , patient is being placed back on Lasix 40mg po 2x per week will continue Spironolactone 12.5mg daily discussed with agrees with the plan.Off IVF # H/o CHF : No acute decompensation cont coreg, ARB , lasix 40mg 2x per week , Spirinolactone 12.5 mg every other day changed from once daily since potassium is 4.5, continue ARB and Coreg . DVT Px: Heparin sq, Scds. Discharge to [facility] today.
[2017-06-22] MEDS ORDERED: GLYCERIN 1 RECTAL SUPPOSITORY, ADULT RC STA (09:39)
[2017-06-22] MEDS ORDERED: SPIRONOLACTONE 25 MG TABLET (FP) PO SCH (10:00)
[2017-06-22] MEDS: POLYETHYLENE GLYCOL 3350 119 GM BTL PO SCH (10:00)
--- NOTE | 2017-06-22 11:30 | PN ---
Progress Note, Physician History of Present Illness: No complaints, post-lap cholecystectomy POD#4, tolerating clear diet with resolved nausea and emesis. - Current Medication List Current Medications: Active Medications Acetaminophen (Tylenol -) 500 mg PO TID PRN PRN Reason: pain/fever Last Admin: 06/20/17 09:56 Dose: 500 mg Albuterol Sulfate (Ventolin 0.083% Nebulizer Soln -) 1 amp NEB QIDR [facility] Last Admin: 06/22/17 06:05 Dose: Not Given Carvedilol (Coreg -) 3.125 mg PO DAILY [facility] Last Admin: 06/22/17 09:25 Dose: 3.125 mg Cyanocobalamin (Vitamin B12 -) 1,000 mcg PO DAILY [facility] Last Admin: 06/22/17 09:25 Dose: 1,000 mcg Enoxaparin Sodium (Lovenox -) 40 mg SQ DAILY [facility] Last Admin: 06/22/17 09:26 Dose: 40 mg Furosemide (Lasix -) 40 mg PO Q72H [facility] Last Admin: 06/20/17 12:07 Dose: 40 mg Insulin Aspart (Novolog Vial Sliding Scale -) 1 vial SQ ACHS [facility] PRN Reason: Protocol Last Admin: 06/22/17 06:16 Dose: Not Given Losartan Potassium (Cozaar -) 50 mg PO DAILY [facility] Last Admin: 06/22/17 09:25 Dose: 50 mg Ondansetron HCl (Zofran Injection) 4 mg IVPUSH Q6H PRN PRN Reason: NAUSEA AND/OR VOMITING Last Admin: 06/19/17 14:42 Dose: 4 mg Polyethylene Glycol (Miralax (For Daily Use) -) 17 gm PO BID [facility] Last Admin: 06/21/17 21:40 Dose: 17 grams Ranitidine HCl (Zantac -) 150 mg PO BID [facility] Last Admin: 06/22/17 09:25 Dose: 150 mg Solifenacin (Vesicare -) 5 mg PO DAILY [facility] Last Admin: 06/21/17 09:21 Dose: 5 mg Spironolactone (Aldactone -) 12.5 mg PO Q48H JENNIFER Last Admin: 06/22/17 09:25 Dose: 12.5 mg Tramadol HCl (Ultram -) 25 mg PO Q8H PRN PRN Reason: PAIN - Objective Vital Signs: Vital Signs Temperature 98.3 F 08/21/17 05:44 Pulse Rate 63 06/22/17 05:44 Respiratory Rate 20 06/22/17 05:44 Blood Pressure 167/79 06/22/17 05:44 O2 Sat by Pulse Oximetry (%) 94 L 06/21/17 21:00 Constitutional: Yes: No Distress, Calm Neck: Yes: Supple Cardiovascular: Yes: Regular Rate and Rhythm Respiratory: Yes: Regular, Diminished Gastrointestinal: Yes: Normal Bowel Sounds, Soft, Abdomen, Obese Edema: No Labs: CBC, BMP 06/21/17 06:00 06/21/17 06:00 INR, PTT INR 1.10 (0.82-1.09) 06/18/17 12:50 Problem List - Problems (1) Cholangitis due to bile duct calculus with obstruction Code(s): K80.31 - CALCULUS OF BILE DUCT W CHOLANGITIS, UNSP, WITH OBSTRUCTION (2) Hypertension Code(s): I10 - ESSENTIAL (PRIMARY) HYPERTENSION Qualifiers: Hypertension type: essential hypertension Qualified Code(s): I10 - Essential (primary) hypertension (3) Choledocholithiasis with obstruction Code(s): K80.51 - CALCULUS OF BILE DUCT W/O CHOLANGITIS OR CHOLECYST W OBST Qualifiers: Cholecystitis presence: with cholecystitis Cholecystitis acuity: acute and chronic Qualified Code(s): K80.47 - Calculus of bile duct with acute and chronic cholecystitis with obstruction (4) Cholelithiasis and acute cholecystitis with obstruction Code(s): K80.01 - CALCULUS OF GALLBLADDER W ACUTE CHOLECYSTITIS W OBSTRUCTION Assessment/Plan 1. Choledocholithiasis, with ascending cholanangitis post ERCP post lap cholecystectomy POD#4 2. Post acute renal insufficiency with hyperkalemia, resolved hyperkalemia 3. Coronary artery disease angina pectoris, stable EKG changes pseudo- normalization of anterior T-wave abnormality 4. Diastolic/Systolic left ventricular dysfunction with chronic class I [place] [employer] classification left ventricular congestive heart failure , compensated/euvolemic 5. HTN 6. Organic brain syndrome/dementia 7. Anemia 8. Asymptomatic bradycardia resolved PLAN: 1. Continue Coreg 3.125 qd as hemodynamics permitting 2. Continue Cozaar 50 qd, start ASA 81 qd and increase Aldactone 12.5 qd with close monitoring of renal function and electrolytes 3. Completed Antibiotics course per the primary team 4. Routine post-op care, analgesia as needed, DVT and GI prophylaxis, d/c planning
[2017-06-22] MEDS: SOLIFENACIN SUCCINATE 5 MG TAB (FP) PO SCH (13:20)
--- NOTE | 2017-06-22 15:07 | PATH ---
Surgical Pathology Report Patient Name: CARLO ALEXANDER Med. Rec. #: [id number] /Age/Gender: 1930 (Age: 87) / F Account: [id number] Location: [facility] MED/SURG Taken: 06/18/2017 Received: 06/19/2017 Reported: 06/22/2017 Physicians: Renzo Lowery Specimen(s) Received GALLBLADDER Clinical History Chronic cholecystitis, ascending cholangitis Final Diagnosis GALLBLADDER, CHOLECYSTECTOMY: ACUTE NECROTIZING AND CHRONIC CHOLECYSTITIS, CHOLELITHIASIS. Electronically Signed Lazaro Olivares M.D. Gross Description Received in formalin, labeled "gallbladder" is a 13.5 x 3.8 x 3.0 cm gallbladder with a 0.2 cm in length portion of cystic duct attached. The outer surface is hale-pink with multifocal defects and varies from smooth to shaggy. The lumen contains 3 hale-brown, irregular choleliths ranging from 1.4-4.5 cm in greatest dimension. There is no bile present within the lumen. The mucosa is hale and focally eroded. The wall of the gallbladder ranges from 0.2-1.0 cm in thickness. Project Scientist sections are submitted in one cassette. 06/19/2017 [facility]06/19/2017
[2017-06-22 15:28] VITALS: BP 157/57; PULSE 57; TEMP 98.2
[2017-06-23] MEDS ORDERED: ASPIRIN 81 MG CHEWABLE TABLETS PO SCH (10:00)
--- NOTE | 2017-06-24 09:09 | OP ---
DATE OF OPERATION: 06/18/2017 PREOPERATIVE DIAGNOSIS: Ascending cholangitis, cholelithiasis, chronic cholecystitis. POSTOPERATIVE DIAGNOSIS: Ascending cholangitis, cholelithiasis, chronic cholecystitis. PROCEDURE: Laparoscopic cholecystectomy, peritoneal lavage. SURGEON: Renzo Lowery MD CUSTOMER OPERATIONS INTERN: Leonides Arrington MD ANESTHESIA: Emmanuel Garcia MD (general) ESTIMATED BLOOD LOSS: Minimal. SPECIMEN: Gallbladder. INDICATIONS AND PROCEDURE: This is an 87-year-old female admitted with ascending cholangitis. She was managed medically with an ERCP stent placement sphincterotomy. She has done extremely well and her liver chems have improved. On paper, the patient is clinically improving. However, every other day, patient has an episode of complaint of abdominal pain mostly noted in the upper abdomen. She was examined with these complaints on several occasions by our surgical group, and each time our examination has been benign. However, she still has these bouts of pain. Today , she had excruciating pain, even though she has had no fever, a normal white count, and improving LFTs. However, because of the pain, the patient was brought to the operating room for a cholecystectomy. Patient was identified and appropriately positioned on the operating room table. After placement of general anesthesia, the abdomen was prepped and draped in the usual sterile fashion with ChloraPrep. An infraumbilical incision was made deep into the subcutaneous tissues. The fascia was identified and divided sharply, the peritoneum incised under direct vision, and a Veress needle placed followed by a structural needle placed. The remaining ports were placed under direct vision, an epigastric 10-mm port and two right upper quadrant 5-mm ports. The gallbladder identified in the right upper quadrant. The gallbladder wall was thin. It was not thickened. There was no evidence of edema around the gallbladder itself. There was edema in the peritoneal line reflection on either side of the gallbladder in the elo hepatis related to her ascending cholangitis. The gallbladder itself had no evidence of acute cholecystitis, no changes consistent with chronic cholecystitis. The neck of the gallbladder was robins egg blue. The gallbladder was reflected over the dome of the liver in standard fashion. Going from lateral to medial, the neck and infundibulum of the gallbladder identified followed by the cystic duct. The cystic duct was circumferentially isolated and noted to be generous. The cystic duct clearly went into the infundibulum and neck of the gallbladder, but because of its generosity, it was divided with an Endo LE 2.5-mm stapler. The artery taken with clips and then divided. The gallbladder itself was removed from the liver bed with electrocautery. Prior to complete removal, the liver bed was irrigated, the operative field examined, noted to be hemostatic. The specimen was placed into an EndoCatch bag and brought up through the umbilical incision. The umbilical incision was lengthened to remove the gallbladder with the large stones. . The right upper quadrant was copiously irrigated with warm saline, the irrigant retrieved. The operative field examined, noted to be hemostatic. Ports were removed. Port sites were hemostatic. The fascia at the infraumbilical port site reapproximated with interrupted 0 Vicryl suture. All skin closed with taylor followed by Dermabond. At the conclusion of the case, sponge and instrument counts were correct. ATTESTATION: Brief operative note handwritten on the preprinted form. [facility] will be queried prior to giving any narcotics. Meño BRAR [id number] cc: MD J Carlos Bejarano MD MTDD
== END 2017-06-22 16:59 | disposition home or self-care (01) | DRG 987 ==
LOC: JER 16:55 → JERBED 23:03 → J4W 06-10 02:22 → J7W 06-14 13:08
PROVIDERS: ADMIT Internal Medicine; ATTEND Internal Medicine
PROC: 0FC98ZZ Extirpation of Matter from Common Bile Duct, Via Natural or Artificial Opening Endoscopic (ICD-10-PCS; 2017-06-12)
PROC: BF10YZZ Fluoroscopy of Bile Ducts using Other Contrast (ICD-10-PCS; 2017-06-12)
PROC: 0F798DZ Dilation of Common Bile Duct with Intraluminal Device, Via Natural or Artificial Opening Endoscopic (ICD-10-PCS; 2017-06-12)
PROC: 3E1M38Z Irrigation of Peritoneal Cavity using Irrigating Substance, Percutaneous Approach (ICD-10-PCS; 2017-06-18)
PROC: 0FT44ZZ Resection of Gallbladder, Percutaneous Endoscopic Approach (ICD-10-PCS; principal; 2017-06-18 16:00)
DX: N17.9 Acute kidney failure, unspecified (principal); I50.23 Acute on chronic systolic (congestive) heart failure; K80.12 Calculus of gallbladder with acute and chronic cholecystitis without obstruction; E87.5 Hyperkalemia; I25.119 Atherosclerotic heart disease of native coronary artery with unspecified angina pectoris; F03.90 Unspecified dementia, unspecified severity, without behavioral disturbance, psychotic disturbance, mood disturbance, and anxiety; F09 Unspecified mental disorder due to known physiological condition; D64.9 Anemia, unspecified; R00.1 Bradycardia, unspecified; I11.0 Hypertensive heart disease with heart failure; K59.00 Constipation, unspecified; D72.829 Elevated white blood cell count, unspecified; E86.0 Dehydration
CPT/HCPCS: 36415; 36600; 70450-TC; 71010-TC; 74181-TC; 76000-TC; 76700-TC; 76705-TC; 76775-TC; 78226-TC; 80048; 80053; 80076; 81003; 81015; 82150; 82375; 82570; 82803; 83036; 83050; 83690; 83735; 83880; 84100; 84484; 85025; 85027; 85610; 85730; 86140; 86704; 86706; 86708; 86803; 86850; 86900; 86901; 87040; 87086; 87340; 88304-TC; 93005; 93010; 94010; 94640; 94760; 97116-GP; 97161-GP; 99284-25; A9537; J1644

== ENCOUNTER 2017-06-22 19:50 | Emergency (ER) | payer OTHER ==
[2017-06-22 20:35] VITALS: TEMP 98.4; BMI 29.2
--- NOTE | 2017-06-22 21:14 | PDOC ---
*Physical Exam - Vital Signs Last Vital Signs Temp Pulse Resp BP Pulse Ox 98.4 F 78 20 113/64 96 06/22/17 20:23 06/22/17 20:23 06/22/17 20:23 06/22/17 20:23 06/22/17 20:23 ED Treatment Course - LABORATORY CBC & Chemistry Diagram: 06/22/17 22:00 06/22/17 22:00 Medical Decision Making - Medical Decision Making 06/22/17 21:13 agree with care from [facility] *DC/Admit/Observation/Transfer Diagnosis at time of Disposition: Abdominal pain - Discharge Dispostion Disposition: [facility] Condition at time of disposition: Stable - Referrals Referrals: Claudette Franco MD [Primary Care Provider] - - Patient Instructions Printed Discharge Instructions: DI for Abdominal Pain-Adult Additional Instructions: Follow up with primary care provider as scheduled and surgeon regarding post surgical follow up. Return if any concerns for further evaluation. Print Language: CROATIAN
--- NOTE | 2017-06-22 21:58 | PDOC ---
History of Present Illness - General Chief Complaint: Pain Stated Complaint: FEVER Time Seen by Provider: 06/22/17 20:47 History Source: [facility] Exam Limitations: Dementia - History of Present Illness Initial Comments: 06/22/17 21:52 87yo Female patient w/ PmHx: HTN, Arthritis, CAD, CHF, Depression, Vertigo, Dementia presented to ED via EMS from [facility] for evaluation of fever. It appears that patient had recently surgical procedure as there are taylor placed over incisions that would be considered from laproscopic procedure. However, patient paperwork did not reflect this and a call placed to the sending facility resulted in no answer. Patient is Demented and Turkmen speaking. Attempts to gather information using Registered Professional Nurse Thanh who speaks Turkmen primarily gained no information. Surgeon: Dr. Lowery Past History - Travel Traveled outside of the country in the last 30 days: No Close contact w/someone who was outside of country & ill: No - Past Medical History Allergies/Adverse Reactions: Allergies Allergy/AdvReac Type Severity Reaction Status Date / Time No Known Allergies Allergy Verified 06/22/17 20:23 Home Medications: Ambulatory Orders Cyanocobalamin [Vitamin B12 -] 1,000 mcg PO DAILY 05/18/16 Mirabegron [Myrbetriq] 50 mg PO DAILY 05/18/16 Aspirin [ASA -] 81 mg PO DAILY tab.chew 05/23/16 Sennosides [Senna -] 2 tab PO DAILY 06/09/17 Acetaminophen [Tylenol .Extra-Strength -] 500 mg PO TID PRN #0 tablet 06/22/17 Carvedilol [Coreg -] 3.125 mg PO DAILY #14 tablet 06/22/17 Cholecalciferol (Vitamin D3) [Decara] 25,000 unit PO WEEKLY #4 capsule 06/22/17 Furosemide [Lasix -] 40 mg PO Q72H tablet 06/22/17 Losartan Potassium [Cozaar -] 50 mg PO DAILY #30 tablet 06/22/17 Spironolactone [Aldactone] 12.5 mg PO Q48H #15 tablet 06/22/17 Anemia: Yes (B12) Asthma: No Cancer: No Cardiac Disorders: Yes (CAD, CHF) CVA: No COPD: No CHF: Yes Dementia: Yes Diabetes: Yes GI Disorders: No Disorders: No HTN: Yes Hypercholesterolemia: Yes Liver Disease: No Psychiatric Problems: Yes (depressive disorder) Seizures: No Thyroid Disease: No - Surgical History Abdominal Surgery: No Appendectomy: No Cardiac Surgery: No Cholecystectomy: No Lung Surgery: No Neurologic Surgery: No Orthopedic Surgery: No - Immunization History Immunization Up to Date: Yes - Psycho/Social/Smoking Cessation Hx Anxiety: No Suicidal Ideation: No Smoking History: Current every day smoker Have you smoked in the past 12 months: Yes Number of Cigarettes Smoked Daily: 2 Information on smoking cessation initiated: No Hx Alcohol Use: No Drug/Substance Use Hx: No Substance Use Type: None Review of Systems - Review of Systems Able to Perform ROS?: No Is the patient limited Zimbabwean proficient: Yes Constitutional: Yes: Fever All Other Systems: Reviewed and Negative *Physical Exam - Vital Signs Last Vital Signs Temp Pulse Resp BP Pulse Ox 98.4 F 78 20 113/64 96 06/22/17 20:23 06/22/17 20:23 06/22/17 20:23 06/22/17 20:23 06/22/17 20:23 - Physical Exam General Appearance: Yes: Nourished, Appropriately Dressed. No: Apparent Distress, Mild Distress, Moderate Distress, Severe Distress Respiratory/Chest: positive: Lungs Clear, Normal Breath Sounds. negative: Chest Tender, Respiratory Distress, Accessory Muscle Use, Labored Respiration, Rapid RR, Stridor, Wheezing Cardiovascular: positive: Regular Rhythm, Regular Rate Gastrointestinal/Abdominal: positive: Normal Bowel Sounds, Soft, Distended, Other (3 Surgical incisions noted to abdomen with taylor closure. No drainage, odor, erythema, tenderness, discharge, swelling noted on examination.). negative: Tender, Guarding, Rebound, Tenderness, Hernia Musculoskeletal: positive: Normal Inspection. negative: CVA Tenderness Extremity: positive: Normal Capillary Refill, Normal Inspection, Normal Range of Motion Integumentary: positive: Normal Color, Dry, Warm Neurologic: positive: Alert, Normal Mood/Affect, Normal Response, Motor Strength 5/5 ED Treatment Course - LABORATORY CBC & Chemistry Diagram: 06/22/17 22:00 06/22/17 22:00 - RADIOLOGY Radiology Studies Ordered: Category Date Time Status CHEST X-RAY PORTABLE* [RAD] Stat Radiology 06/22/17 21:21 Taken Medical Decision Making - Medical Decision Making 06/23/17 04:[address] Lowery regarding free air in abdomen. Dr. Lowery states free air common a week after surgery. May discharge patient back to facility and f/u as usual. *DC/Admit/Observation/Transfer Diagnosis at time of Disposition: Abdominal pain Qualifiers: Abdominal location: generalized Qualified Code(s): R10.84 - Generalized abdominal pain - Discharge Dispostion Disposition: [facility] Condition at time of disposition: Stable Admit: No - Referrals Referrals: Claudette Franco MD [Primary Care Provider] - - Patient Instructions Printed Discharge Instructions: DI for Abdominal Pain-Adult Additional Instructions: Follow up with primary care provider as scheduled and surgeon regarding post surgical follow up. Return if any concerns for further evaluation. Print Language: DIVEHI
[2017-06-22 22:13] LABS: BASOPHIL 0.4 % (0-2.0); EOSINOPHIL 0.6 % (0-4.5); MCH 33.5 pg (25.7-33.7); MCHC 33.8 g/dl (32.0-36.0); MEAN CELL VOLUME 99.2 fl (80-96); NEUTROPHILS 79.8 % (42.8-82.8); PLATELET COUNT 360 K/MM3 (134-434); RDW 13.7 % (11.6-15.6); WHITE BLOOD COUNT 11.8 K/mm3 (4.0-10.0)
[2017-06-22 22:45] LABS: URINE APPEARANCE SLCLOUDY; URINE BLOOD 1+ (NEGATIVE); URINE COLOR AMBER; URINE GLUCOSE (UA) NEGATIVE (NEGATIVE); URINE KETONE TRACE (NEGATIVE); URINE LEUK ESTERASE TRACE (NEGATIVE); URINE NITRITE NEGATIVE (NEGATIVE); URINE UROBILINOGEN 4.0 E.U/dl mg/dL (0.2-1.0)
[2017-06-22 22:48] LABS: ALBUMIN 2.7 g/dl (3.4-5.0); ANION GAP 8 (8-16); BILIRUBIN,TOTAL 0.5 mg/dL (0.2-1.0); CALCIUM 8.6 mg/dL (8.5-10.1); CO2 28 mmol/L (21-32); CREATININE 0.9 mg/dL (0.55-1.02); GLUCOSE,RANDOM 119 mg/dL (74-106); SGOT/AST 16 U/L (15-37); SGPT/ALT 20 U/L (12-78); TOT PROT 5.9 g/dl (6.4-8.2)
[2017-06-22 22:49] LABS: ALK PHOS 83 U/L (45-117)
[2017-06-22 22:49] LABS: URINE PROTEIN 1+ (NEGATIVE)
[2017-06-22 22:51] LABS: URINE HYALINE CAST 6 /lpf; URINE MUCUS RARE; URINE RBC 7 /hpf (0-3); URINE WBC 5 /hpf (3-5)
[2017-06-23 04:10] VITALS: BP 116/80; PULSE 88
== END 2017-06-23 05:54 ==
LOC: JER 19:50
DX: R10.84 Generalized abdominal pain (principal); Z98.890 Other specified postprocedural states; I25.10 Atherosclerotic heart disease of native coronary artery without angina pectoris; I11.0 Hypertensive heart disease with heart failure; I50.9 Heart failure, unspecified; M12.9 Arthropathy, unspecified; F03.90 Unspecified dementia, unspecified severity, without behavioral disturbance, psychotic disturbance, mood disturbance, and anxiety
CPT/HCPCS: 36415; 71010-TC; 74177-TC; 80053; 81003; 81015; 83605; 85025; 99282-25